=== PATIENT | male | born 1985 | race African-American/Black ===

== ENCOUNTER → 2023-04-10 09:42 | Outpatient (BNVA) | payer MEDICAID, SELFPAY | PROVIDERS: PCP Internal Medicine; Visit Provider Nurse Practitioner Family | DX: J45.909 Unspecified asthma, uncomplicated (principal); G47.33 Obstructive sleep apnea (adult) (pediatric); R40.0 Somnolence; R06.09 Other forms of dyspnea; E66.01 Morbid (severe) obesity due to excess calories; Z68.44 Body mass index [BMI] 60.0-69.9, adult | CPT/HCPCS: 94618; 99202 ==

== ENCOUNTER → 2023-05-08 11:17 | Outpatient (REF) | payer MEDICAID, SELFPAY | LOC: HO.SL 11:17 | PROVIDERS: PCP Internal Medicine; Visit Provider Nurse Practitioner Family | DX: G47.33 Obstructive sleep apnea (adult) (pediatric) (principal) | CPT/HCPCS: 95806 ==

== ENCOUNTER → 2023-05-08 11:22 | Outpatient (BNV) | payer MEDICAID, SELFPAY | PROVIDERS: PCP Internal Medicine; Visit Provider Internal Medicine | DX: G47.33 Obstructive sleep apnea (adult) (pediatric) (principal) | CPT/HCPCS: 95806 ==

== ENCOUNTER 2023-05-27 15:37 | Outpatient (AMB) | payer MEDICAID, SELFPAY ==
[2023-05-27 15:47] VITALS: BP 138/82; PULSE 89; BMI 60.7
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
== END 2023-05-27 16:15 | disposition home or self-care (01) ==
PROVIDERS: PCP Internal Medicine; Visit Provider Surgery
DX: S21.101A Unspecified open wound of right front wall of thorax without penetration into thoracic cavity, initial encounter (principal)
CPT/HCPCS: 99203

== ENCOUNTER → 2023-05-27 15:37 | Outpatient (BNVA) | payer MEDICAID, SELFPAY | PROVIDERS: PCP Internal Medicine; Visit Provider Surgery | DX: S21.101A Unspecified open wound of right front wall of thorax without penetration into thoracic cavity, initial encounter (principal); W22.8XXA Striking against or struck by other objects, initial encounter; Y93.9 Activity, unspecified; Y92.9 Unspecified place or not applicable; Y99.8 Other external cause status | CPT/HCPCS: 99202 ==

== ENCOUNTER 2023-05-29 10:52 | Outpatient (AMB) | payer MEDICAID, SELFPAY ==
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
[2023-05-29 11:05] VITALS: BP 130/86; PULSE 82; BMI 60.7
== END 2023-05-29 12:38 | disposition home or self-care (01) ==
LOC: HO.HCSM 10:52
PROVIDERS: PCP Internal Medicine; Referring Provider Internal Medicine; Visit Provider Internal Medicine Cardiovascular Disease
DX: R06.09 Other forms of dyspnea (principal); E66.01 Morbid (severe) obesity due to excess calories; Z68.44 Body mass index [BMI] 60.0-69.9, adult
CPT/HCPCS: 93010; 99204

== ENCOUNTER → 2023-05-29 13:18 | Outpatient (REF) | payer MEDICAID, SELFPAY ==
--- NOTE | 2023-05-29 13:20 | CA_ITS ---
Transthoracic Echocardiogram Patient (Last, First, Middle): Lino Bradley, Gender: Male Date of : 1985 Age: 37 Procedure Date: 05/29/2023 Procedure Type: Transthoracic Echocardiogram Location: OP Height: 172.72 cm Weight: 172.37 kg BSA: 2.68 m2 Heart Rate: 81 bpm BP: 150 / 90 mmHg Isotope Hydrologist: BOBBY Eng MD: Chiara Manriquez FILM SOUND COORDINATOR Planning And Analysis Manager: Vasquez Sutherland MD Symptoms: R06.09 - Other forms of dyspnea Study Quality: Adequate ECG Rhythm: Sinus Conclusions: - 1. Normal LV ejection fraction 55-60% 2. Normal cardiac valvular Doppler 3. Upper limits of normal RV systolic pressure with mildly elevated right atrial pressures 4. No gross pericardial effusion Findings Left Ventricle Normal left ventricular size, thickness, and systolic function. The visually estimated ejection fraction is between 55-60%. Regional wall motion abnormalities can not be excluded due to suboptimal endocardial definition. Spectral Doppler is indicative of a normal filling pattern. Right Ventricle The right ventricle was not well visualized. Atria The left atrium is likely dilated. There is lipomatous hypertrophy of the interatrial septum. There is no evidence of interatrial shunt. The right atrium was not well visualized. Aortic Valve The aortic valve structure and function is likely normal. Mitral Valve Likely normal mitral valve structure and function. There is trace mitral valve regurgitation. There is no mitral valve stenosis. Pulmonic Valve The pulmonic valve was not well visualized. Tricuspid Valve Mildly elevated right atrial pressure. There is no evidence of pulmonary hypertension. Great Vessels All visible segments of the aorta are normal in size. The pulmonary artery was not well visualized. Venous The inferior vena cava is mildly dilated and collapses less than 50% with inspiration. Pericardium/Pleural There is no evidence of pericardial effusion. Prior Study Comparison No prior study available for comparison. Measurements 2D Linear Measurements IVSd: 1.02 0.6-0.9/0.6-1.0 cm LVIDd: 6.03 3.9-5.3/4.2-5.9 cm LVIDd Index: 2.25 2.4-3.2/2.2-3.1 cm/m2 LVIDs: 3.59 2.0-3.6 cm LVPWd: 1.03 0.7-1.1 cm LA Diam: 4.00 2.7-3.8/3.0-4.0 cm LAIDs Index: 1.49 1.5-2.3 cm/m2 LV Mass: 383.99 67-162/88-224 g LV Mass Index: 143.28 43-95/49-115 g/m2 LVOT Diam: 2.60 3.0+(-)1.3 cm 2D Systolic Function EF 4C: 55.90 >55% EF 2C: 49.90 >55% Mitral Valve MV Pk E: 0.79 MV PK A: 0.63 MV Decel Time: 276.00 E/A: 1.30 E'Lateral: 9.14 E'Medial: 8.38 E/E' Med: 9.50 E/E' Lat: 8.70 PHT: 81.00 MVA PHT: 2.72 Decel Tillman: 2.87 Aortic Valve AoV Pk Han: 1.17 AoV Mn Han: 0.85 AoV VTI: 0.26 AoV Pk Grad: 5.00 Aov Mn Grad: 3.00 MAGNOLIA Cont.VTI: 3.79 LVOT LVOT Pk Han: 0.90 LVOT Mn Han: 0.67 LVOT VTI: 0.18 LVOT Pk Grad: 3.00 LVOT Mn Grad: 2.00 LVOT Diam: 2.60 LVOT Area: 5.31 Diastolic Function MV Pk E: 0.79 MV Pk A: 0.63 E/A: 1.30 E'Medial: 8.38 E/E' Med: 9.50 E' Laterial: 9.14 E/E' Lat: 8.70 Right Ventricle TAPSE (mm): 30.00 TVS' Han: 13.90 Tricuspid Valve TR Pk Han: 2.62 TR Pk Grad: 27.00 RA Press: 8.00 RVSP: 35.00 Great Vessels Aorta Sinus of Valsalva: 4.10 2.0-3.5 cm Ao Asc: 3.50 2.1-3.4 cm Pulmonary Valve PV Pk Han: 1.14 Peak PV Grad: 5.00 Updated in Other Vendor System with Status of Final Vasquez Sutherland MD electronically signed on 05/30/2023 2:03:58 PM with status of Final
== END ==
LOC: HO.CARD 13:18
PROVIDERS: PCP Internal Medicine; Visit Provider Nurse Practitioner Family
DX: R06.09 Other forms of dyspnea (principal); E66.01 Morbid (severe) obesity due to excess calories; Z68.44 Body mass index [BMI] 60.0-69.9, adult
CPT/HCPCS: 93005; 93306; 99202

== ENCOUNTER → 2023-05-29 13:20 | Outpatient (BNV) | payer MEDICAID, SELFPAY | PROVIDERS: PCP Internal Medicine; Visit Provider Internal Medicine Cardiovascular Disease | DX: R06.09 Other forms of dyspnea (principal) | CPT/HCPCS: 93306 ==

== ENCOUNTER 2023-06-11 13:03 | Outpatient (AMB) | payer MEDICAID, SELFPAY ==
--- NOTE | 2023-06-11 13:11 | MHC.OFFVIS ---
Intake Vital Signs 06/11/23 13:13 Weight 404 lb 8.772 oz BP 140/80 H Blood Pressure Location Rt radial Position Sitting Pulse 87 Pulse Source Pulse Oximeter Pulse Oximetry (%) 91 L Oxygen Delivery Method Room Air Intake Visit Reasons: Hx of PE/ARSHAD Allergies amoxicillin Allergy (Severe, Verified 06/12/23 10:50) Unknown Penicillins Allergy (Severe, Verified 06/12/23 10:50) Anaphylaxis Medication List - Last Reconciled 06/11/23 by Anahi Wilder LPN albuterol sulfate 90 mcg/actuation 2 puffs inhalation Q4-6H PRN budesonide-formoterol 80-4.5 mcg/actuation (Symbicort) 2 puffs inhalation Q12H doxycycline monohydrate 100 mg PO BID HPI Hx of PE/ARSHAD HPI Details Lino is a pleasant 37 year old male, current 1/2 ppd smoker with 10 pack year history, h/o provoked PE (December 2022) d/c eliquis x 1 month and BMI of 60. He continues to report he has not been back to baseline since the PE. He reports shortness of breath with minimal exertion, decreased activity, intermittent productive cough and occasional wheeze. At the last visit, he was prescribed symbicort which he reports improvements in dyspnea but often forgets to take the second dose. Will attempt to send in Breo for improved compliance. He was evaluated by cardiology recently with no significant findings from echo. Full report below. Today he presents to review PFT and sleep study results. [facility] Medical History DVT (deep venous thrombosis) Morbid obesity Pulmonary embolism Surgical History History of surgery on lower extremity Family History Mother No problems noted. Father Stroke Heart attack Social History Alcohol intake: current Alcohol intake frequency: holidays/special occasions only Patient Tobacco Use Status: Current everyday Tobacco user Tobacco use type: Cigarette Cigarette Packs Per Day: 0.5 Cigarettes Per Day: 10 Years Smoked: 25 +/- Review of Systems Const Denies chills, Reports daytime sleepiness, Reports difficulty sleeping, Denies excessive sweating, Denies fever(s), Denies headache(s), Denies night sweats and Reports snoring Eyes Denies dry eyes, Denies irritation and Denies itchy eyes ENT Reports Normal hearing present, Denies headache(s), Denies nasal congestion, Denies nasal discharge, Denies post nasal drip and Denies sore throat Card Denies chest pain, Denies chest pain at rest, Denies chest pain with activity, Denies leg edema, Reports dyspnea and Reports dyspnea on exertion Resp Denies chest congestion, Reports cough, Denies hemoptysis, Denies excessive phlegm production, Denies pain on inspiration, Denies pain with cough, Reports dyspnea, Reports dyspnea on exertion, Reports snoring and Reports wheezing Musc Denies myalgias Neuro Reports Normal hearing present and Denies headache(s) Endo Denies excessive sweating Hussain/Lymph Denies lymphadenopathy Aller/Immun Denies itchy eyes, Denies seasonal rhinorrhea and Reports wheezing Physical Exam Vital Signs: Last Vital Signs Pulse 87 06/11/23 13:13 BP 140/80 H 06/11/23 13:13 Pulse Ox 91 L 06/11/23 13:13 Oxygen Delivery Method Room Air 06/11/23 13:13 Const General: cooperative, comfortable, no acute distress, well developed and alert Nutritional Appearance: obese morbidly obese Orientation/consciousness: patient oriented x3 Limitations: no limitations HEENT Head: Yes normal to inspection, Yes normocephalic and Yes atraumatic Ears: hearing grossly normal bilaterally and external ears normal Eyes General: appearance normal, both eyes and all related structures Eyelids: Yes eyelids normal Sclerae: sclerae normal EOM: EOMs intact bilaterally Neck Neck: Yes normal visual inspection and Yes no lymphadenopathy Lymphatic: no lymphadenopathy noted Chest Chest palpation & inspection: normal inspection of the chest Resp Effort & Inspection: normal respiratory effort, able to speak in complete sentences, no audible wheezes, no cough, no stridor, not tachypneic, no tripod positioning and no use of accessory muscles Auscultation: clear to auscultation bilaterally Cardio Jugular venous distension: no JVD Rate: regular rate Rhythm: regular rhythm Skin Other: warm, dry General skin exam: no rashes or lesions noted Neuro General: patient oriented x3 Cranial nerves: Yes Normal hearing present Cognition (Neuro): normal cognition Gait exam (Neuro): Normal gait present Extrem General: Yes normal to inspection, Yes capillary refill normal, Yes no clubbing, cyanosis or edema and Yes no pedal edema Psych Appearance: grossly normal and well kempt Speech and movement: Normal speech and movement present and Clear speech present Affect: normal affect Attitude: cooperative Thought process: Normal thought process present Thought content: Normal thought content present Insight: Good insight present (Psych) Judgement: Good judgement present (Psych) Office Procedures 6 Minute Walk Time:: 13:30 SPO2 % at rest: 95 Pulse at rest: 71 SPO2 % during excercise: 87 Pulse during excercise: 106 SPO2 % after excercise: 94 Pulse after excercise: 98 Distance in yards walked: 150 Ines Score: 5 Performance Observations:: Lino walked on level ground without assistance, he walked on room air for 3 mins before his SPO2 decreased to 87%, O2 started at 1 lpm and with a brief rest his SPO2 increased to 94%. He completed the walk on 1 lpm maintaining his SPO2 at 94%. [id number] - 6 Minute Walk Results Reviewed Results Reviewed: [address] [address] Cardiology Report Signed Patient: Lino Bradley MR#: [id number] : 1985 Acct:[id number] Age/Sex: 37 / M ADM Date: 05/29/23 Loc: .[facility] Ordering Physician: Chiara Manriquez NP Date of Service: 05/29/23 Procedure(s): CA echo transthoracic complete Accession Number(s): cc: Chiara Manriquez NP~ ? Transthoracic Echocardiogram Patient (Last, First, Middle): Lino Bradley, Gender:? Male Patient ID:? ? ? [id number] Date of : ? 1985 Age: ? 37 Procedure Date:? 05/29/2023 Procedure Type:? Transthoracic Echocardiogram Location:? OP Height:? 172.72 cm? Weight: ? 172.37 kg BSA: ? 2.68 m2? Heart Rate: ? ? 81 bpm BP:? 150 / 90 mmHg Forest Fire Management Officer: ? ? [place] Referring MD:? ? Chiara Manriquez NP Road Consultant:? ? Vasquez Sutherland MD Symptoms:? R06.09 - Other forms of dyspnea Study Quality: ? Adequate ECG Rhythm:? ? ? Sinus ?? ? Conclusions: - 1.? Normal LV ejection fraction 55-60% ? 2.? Normal cardiac valvular Doppler? 3.? Upper limits of normal RV systolic pressure with mildly? ? ? elevated right atrial pressures? 4.? No gross pericardial effusion? Findings Left Ventricle Normal left ventricular size, thickness, and systolic function. The visually estimated ejection fraction is between 55-60%.? Regional wall motion abnormalities can not be excluded due to suboptimal endocardial definition. Spectral Doppler is indicative of a normal filling pattern. Right Ventricle The right ventricle was not well visualized. Atria The left atrium is likely dilated.? There is lipomatous hypertrophy of the interatrial septum.? There is no evidence of interatrial shunt.? The right atrium was not well visualized. Aortic Valve The aortic valve structure and function is likely normal. Mitral Valve Likely normal mitral valve structure and function.? There is trace mitral valve regurgitation.? There is no mitral valve stenosis. Pulmonic Valve The pulmonic valve was not well visualized. Tricuspid Valve Mildly elevated right atrial pressure.? There is no evidence of pulmonary hypertension. Great Vessels All visible segments of the aorta are normal in size.? The pulmonary artery was not well visualized. Venous The inferior vena cava is mildly dilated and collapses less than 50% with inspiration. Pericardium/Pleural There is no evidence of pericardial effusion. Prior Study Comparison No prior study available for comparison. ? Measurements 2D Linear Measurements IVSd: ? 1.02? 0.6-0.9/0.6-1.0 cm LVIDd:? 6.03? 3.9-5.3/4.2-5.9 cm LVIDd Index:? 2.25? 2.4-3.2/2.2-3.1 cm/m2 LVIDs:? 3.59? 2.0-3.6 cm LVPWd:? 1.03? 0.7-1.1 cm LA Diam:? 4.00? 2.7-3.8/3.0-4.0 cm LAIDs Index:? 1.49? 1.5-2.3 cm/m2 LV Mass:? 383.99? 67-162/88-224 g LV Mass Index:? ? ? 143.28? 43-95/49-115 g/m2 LVOT Diam:? 2.60 ? 3.0+(-)1.3 cm ? 2D Systolic Function EF 4C:? 55.90 ? >55% EF 2C:? 49.90 ? >55% ?? Mitral Valve MV Pk E:? 0.79 MV PK A:? 0.63 MV Decel Time:? ? ? 276.00 E/A:? 1.30 E'Lateral:? 9.14 E'Medial: ? 8.38 E/E' Med: ? 9.50 E/E' Lat: ? 8.70 PHT:? 81.00 MVA PHT:? 2.72 Decel Centre:? 2.87 ?? Aortic Valve AoV Pk Han: ? 1.17 AoV Mn Han: ? 0.85 AoV VTI:? 0.26 AoV Pk Grad:? 5.00 Aov Mn Grad:? 3.00 MAGNOLIA Cont.VTI: ? ? ? 3.79 ?LVOT LVOT Pk Han:? 0.90 LVOT Mn Han:? 0.67 LVOT VTI: ? 0.18 LVOT Pk Grad: ? ? ? 3.00 LVOT Mn Grad: ? ? ? 2.00 LVOT Diam:? 2.60 LVOT Area:? 5.31 ? Diastolic Function MV Pk E:? 0.79 MV Pk A:? 0.63 E/A:? 1.30 E'Medial: ? 8.38 E/E' Med: ? 9.50 E' Laterial:? 9.14 E/E' Lat: ? 8.70 ? Right Ventricle TAPSE (mm): ? 30.00 TVS' Han: ? 13.90 ? Tricuspid Valve TR Pk Han:? 2.62 TR Pk Grad: ? 27.00 RA Press: ? 8.00 RVSP: ? 35.00 ?? Great Vessels Aorta Sinus of Valsalva:? 4.10? 2.0-3.5 cm Ao Asc: ? 3.50? 2.1-3.4 cm ? Pulmonary Valve PV Pk Han:? 1.14 Peak PV Grad: ? ? ? 5.00 Updated in Other Vendor System with Status of Final Vasquez Sutherland MD? electronically signed on 05/30/2023 2:03:58 PM with status of Final Assessment & Plan Assessment & Plan (1) Obstructive sleep apnea: Code(s): G47.33 - Obstructive sleep apnea (adult) (pediatric) (2) Morbid obesity with BMI of 60.0-69.9, adult: Code(s): E66.01 - Morbid (severe) obesity due to excess calories; Z68.44 - Body mass index [BMI] 60.0-69.9, adult (3) Pulmonary embolism: Code(s): I26.99 - Other pulmonary embolism without acute cor pulmonale (4) Nocturnal hypoxemia: Code(s): G47.34 - Idiopathic sleep related nonobstructive alveolar hypoventilation Plan Reviewed sleep study results with patient which revealed moderate obstructive sleep apnea, with an AHI of 16 and nocturnal hypoxia for majority of the study. Since patient is quite symptomatic, will start CPAP therapy and send for overnight oximetry after using for 2 months. Will send in prescription for APAP mode and pressure settings of 8-20 cm with close monitoring for compliance and benefits. Sleep hygiene education reviewed. He is aware if there are any issues with the mask or CPAP machine, he will call the office. 6MWT test performed and at this time patient qualifies for 1L of oxygen with exertion. Will send prescription. Patient also with history of PE and now has been off of anticoagulation for one month. Concern for chronic thromboembolism given increased right sided pressures on echo. Will send for V/Q scan. Patient was supposed to have PFT performed, but unfortunately missed his appointment. Will reschedule this. Again discussed importance of weight loss and smoking cessation. All questions were answered and patient is in agreement of plan. Will follow up in 4 weeks. Orders: Orders NM pul vent and perfuse 06/11/23 I26.99 - Other pulmonary embolism without acute cor pulmonale AMB 6 minute walk 06/11/23 J45.909 - Unspecified asthma, uncomplicated Medications: New fluticasone furoate-vilanterol 100-25 mcg/dose (Breo Ellipta) 1 inh inhalation DAILY 60 ea 3RF nicotine (Nicotrol) 1 inh inhalation Q2-4H PRN 168 ea 0RF nicotine cravings Coding Level of Care Code Est Pt Level 4 (19950) Diagnoses Obstructive sleep apnea G47.33 Morbid obesity with BMI of 60.0-69.9, adult E66.01; Z68.44 Pulmonary embolism I26.99 Nocturnal hypoxemia G47.34 CPT Codes Coding ([id number])
[2023-06-11 13:13] VITALS: BP 140/80; PULSE 87; O2SAT 91
[2023-06-11 15:22] VITALS: PULSE 71; O2SAT 95
== END 2023-06-11 13:49 | disposition home or self-care (01) ==
PROVIDERS: PCP Internal Medicine; Visit Provider Nurse Practitioner Family
DX: J45.909 Unspecified asthma, uncomplicated (principal)
CPT/HCPCS: 94618; 99214

== ENCOUNTER → 2023-06-11 13:03 | Outpatient (BNVA) | payer MEDICAID, SELFPAY | PROVIDERS: PCP Internal Medicine; Visit Provider Nurse Practitioner Family | DX: G47.33 Obstructive sleep apnea (adult) (pediatric) (principal); I26.99 Other pulmonary embolism without acute cor pulmonale; G47.34 Idiopathic sleep related nonobstructive alveolar hypoventilation; E66.01 Morbid (severe) obesity due to excess calories; Z68.44 Body mass index [BMI] 60.0-69.9, adult | CPT/HCPCS: 94618; 99212 ==

== ENCOUNTER 2023-06-12 10:38 | Outpatient (AMB) | payer MEDICAID, SELFPAY ==
--- NOTE | 2023-06-12 10:40 | A.OFFVIS_ITS ---
Intake Intake Visit Reasons: Biopsy of wound of chest wall Intake Note: This patient presents for in-office procedure for biopsy of wound on the chest wall. Patient c/o; reports no changes at this time. Equal Employment Opportunity Officer Required: No Accompanied by: Self / Same As Patient Allergies amoxicillin Allergy (Severe, Verified 06/12/23 10:50) Unknown Penicillins Allergy (Severe, Verified 06/12/23 10:50) Anaphylaxis Medication List - Last Reconciled 06/12/23 by Garfield Ramos MD albuterol sulfate 90 mcg/actuation 2 puffs inhalation Q4-6H PRN budesonide-formoterol 80-4.5 mcg/actuation (Symbicort) 2 puffs inhalation Q12H doxycycline monohydrate 100 mg PO BID HPI Biopsy of wound of chest wall HPI Details 37-year-old male here for a biopsy of a chronic nonhealing wound on the chest wall. [facility] Medical History DVT (deep venous thrombosis) Morbid obesity Pulmonary embolism Surgical History History of surgery on lower extremity Family History Mother No problems noted. Father Stroke Heart attack Social History Alcohol intake: current Alcohol intake frequency: holidays/special occasions only Patient Tobacco Use Status: Current everyday Tobacco user Tobacco use type: Cigarette Cigarette Packs Per Day: 0.5 Cigarettes Per Day: 10 Years Smoked: 25 +/- Review of Systems Const Denies chills and Denies fever(s) Card Denies chest pain, Denies dyspnea and Denies dyspnea on exertion Resp Denies cough, Denies dyspnea and Denies dyspnea on exertion GI Denies hematochezia and Denies change in bowel habits Denies hematuria and Denies difficulty urinating Musc Denies back pain and Denies limited range of motion Neuro Denies focal weakness and Denies convulsions Psych Denies depression and Denies mood swings Physical Exam Const Other: Morbidly obese General: comfortable and no acute distress Orientation/consciousness: patient oriented x3 Neck Neck: Yes no lymphadenopathy Chest Other: Right chest wall with an open wound measuring 9 x 3 cm, subcutaneous area exposed Resp Auscultation: clear to auscultation bilaterally Cardio Rhythm: regular rhythm GI Palpation (GI): Soft to palpation, nontender and no guarding Neuro General: patient oriented x3 Assessment & Plan Assessment & Plan (1) Unspecified open wound of right front wall of thorax without penetration into thoracic cavity, initial encounter: Code(s): S21.101A - Unspecified open wound of right front wall of thorax without penetration into thoracic cavity, initial encounter Plan: Biopsies were done using sharp scissors. The area was prepped and draped. I took samples of the wound surface using fine scissors with forceps Cultures were also taken. I will see him in the office in about 2 weeks to review results. In the meantime I have instructed him to do wet to dry dressing changes daily. I had given him samples of gauze and normal saline. I have advised him on smoking cessation. Orders: Orders Routine Culture w Gram Stain Today S21.101A - Unspecified open wound of right front wall of thorax without penetration into thoracic cavity, initial encounter Surgical Today S21.101A - Unspecified open wound of right front wall of thorax without penetration into thoracic cavity, initial encounter Coding Level of Care Code Est Pt Level 3 (71646) Diagnoses Unspecified open wound of right front wall of thorax without penetration into thoracic cavity, initial encounter S21.101A
== END 2023-06-12 11:05 | disposition home or self-care (01) ==
PROVIDERS: PCP Internal Medicine; Visit Provider Surgery
DX: S21.101A Unspecified open wound of right front wall of thorax without penetration into thoracic cavity, initial encounter (principal)
CPT/HCPCS: 99213

== ENCOUNTER 2023-06-12 10:38 | Outpatient (REF) | payer MEDICAID, SELFPAY | END 2023-06-12 10:39 | disposition home or self-care (01) | LOC: HO.LNP 10:38 | PROVIDERS: PCP Internal Medicine; Visit Provider Surgery | DX: S21.101A Unspecified open wound of right front wall of thorax without penetration into thoracic cavity, initial encounter (principal); X58.XXXA Exposure to other specified factors, initial encounter; Y93.9 Activity, unspecified; Y92.9 Unspecified place or not applicable; Y99.9 Unspecified external cause status; Z79.899 Other long term (current) drug therapy | CPT/HCPCS: 87070; 87205; 88304; 99212 ==

== ENCOUNTER 2023-06-19 09:58 | Outpatient (AMB) | payer MEDICAID, SELFPAY ==
--- NOTE | 2023-06-19 10:00 | A.OFFVIS_ITS ---
Intake Intake Visit Reasons: Follow up Biopsy of wound of chest wall Intake Note: This patient presents for a follow-up assessment status post biopsy of wound on chest wall. Patient c/o; reports no changes or concerns at this time. Event Marketing Coordinator Required: No Accompanied by: Self / Same As Patient Allergies amoxicillin Allergy (Severe, Verified 06/19/23 10:04) Unknown Penicillins Allergy (Severe, Verified 06/19/23 10:04) Anaphylaxis Medication List - Last Reconciled 06/19/23 by Garfield Ramos MD albuterol sulfate 90 mcg/actuation 2 puffs inhalation Q4-6H PRN budesonide-formoterol 80-4.5 mcg/actuation (Symbicort) 2 puffs inhalation Q12H doxycycline monohydrate 100 mg PO BID fluticasone furoate-vilanterol 100-25 mcg/dose (Breo Ellipta) 1 inh inhalation DAILY nicotine (Nicotrol) 1 inh inhalation Q2-4H PRN HPI Follow up Biopsy of wound of chest wall HPI Details He is here for follow-up because of a nonhealing wound on that his right chest wall. The started after he had ingrown hair he says which he open up himself with a knife. He has this nonhealing ulcer and I had done a biopsy and cultures last 06/12/2023. He denies any new complaints. [facility] Medical History DVT (deep venous thrombosis) Morbid obesity Pulmonary embolism Surgical History History of surgery on lower extremity Family History Mother No problems noted. Father Stroke Heart attack Social History Alcohol intake: current Alcohol intake frequency: holidays/special occasions only Patient Tobacco Use Status: Current everyday Tobacco user Tobacco use type: Cigarette Cigarette Packs Per Day: 0.5 Cigarettes Per Day: 10 Years Smoked: 25 +/- Review of Systems Const Denies chills and Denies fever(s) Card Denies chest pain, Denies dyspnea and Reports dyspnea on exertion Resp Denies cough, Denies dyspnea and Reports dyspnea on exertion GI Denies hematochezia and Denies change in bowel habits Denies hematuria and Denies difficulty urinating Musc Denies back pain and Denies limited range of motion Neuro Denies focal weakness and Denies convulsions Psych Denies depression and Denies mood swings Physical Exam Const Other: Morbidly obese General: comfortable and no acute distress Chest Other: Open wound on the chest wall on the right side, about 8.2 cm by 2.9 cm, with good granulation on exposed subcutaneous layer, no discharge Resp Effort & Inspection: normal respiratory effort Cardio Rate: regular rate Assessment & Plan Assessment & Plan (1) Unspecified open wound of right front wall of thorax without penetration into thoracic cavity, initial encounter: Code(s): S21.101A - Unspecified open wound of right front wall of thorax without penetration into thoracic cavity, initial encounter Plan: He has had this nonhealing wound on the right chest wall. Biopsies of this shows granulation tissue and fibrosis without any evidence of malignancy. His answers were on negative as well for any bacteria I therefore changes dressings. I applied wet to dry and I had instructed him to continue to do wet to dry dressing changes at least once or twice a day. I will see him again in the office in about a month for another wound check. Coding Level of Care Code Est Pt Level 3 (36417) Diagnoses Unspecified open wound of right front wall of thorax without penetration into thoracic cavity, initial encounter S21.101A
== END 2023-06-19 10:17 | disposition home or self-care (01) ==
PROVIDERS: PCP Internal Medicine; Visit Provider Surgery
DX: S21.101A Unspecified open wound of right front wall of thorax without penetration into thoracic cavity, initial encounter (principal)
CPT/HCPCS: 99213

== ENCOUNTER → 2023-06-19 09:58 | Outpatient (BNVA) | payer MEDICAID, SELFPAY | PROVIDERS: PCP Internal Medicine; Visit Provider Surgery | DX: S21.101D Unspecified open wound of right front wall of thorax without penetration into thoracic cavity, subsequent encounter (principal) | CPT/HCPCS: 99212 ==

== ENCOUNTER → 2023-06-25 11:10 | Outpatient (REF) | payer MEDICAID, SELFPAY ==
--- NOTE | ~2023-06-25 | XR_ITS ---
EXAMINATION: XR CHEST CLINICAL INFORMATION: Pulmonary embolism without cor pulmonale COMPARISON: None available. TECHNIQUE: 2 views of the chest were obtained. FINDINGS: Heart size within normal limits. Opacity identified adjacent to the right heart border. No vascular congestion. No effusions. Bony structures are intact. XR/XR chest 2V IMPRESSION: Opacity adjacent to right heart border, question middle lobe pneumonia. Short-term radiographic follow-up recommended in several weeks time. If no resolution, CT would be indicated.
--- NOTE | ~2023-06-25 | NM_ITS ---
PULMONARY PERFUSION ONLY STUDY: CLINICAL INDICATION: Other pulmonary embolism without acute cor pulmonale. PROCEDURE: Following the intravenous administration of 4.0 millicuries technetium 99m MAA, images of the chest were obtained in multiple projections using a gamma scintiphotographic camera. COMPARISON: Chest radiograph done earlier today. PERFUSION IMAGES: No segmental perfusion defects or other perfusion abnormalities are noted. NM/NM pul perfusion IMPRESSION: Based on perfusion only modified PIOPED 2 criteria, pulmonary embolism is absent.
== END ==
LOC: HO.NUCMED 11:10
PROVIDERS: PCP Internal Medicine; Visit Provider Nurse Practitioner Family
DX: I26.99 Other pulmonary embolism without acute cor pulmonale (principal)
CPT/HCPCS: 71046; 78580; A9540

== ENCOUNTER 2023-08-20 10:18 | Outpatient (AMB) | payer MEDICAID, SELFPAY ==
[2023-08-20 10:28] VITALS: BP 146/78; PULSE 112; O2SAT 84
--- NOTE | 2023-08-20 10:28 | A.OFFVIS_ITS ---
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 Coloring Machine Operator: Coloring Machine Operator offered & declined Accompanied by: Self / Same As Patient Allergies amoxicillin Allergy (Severe, Verified 08/20/23 10:36) Unknown Penicillins Allergy (Severe, Verified 08/20/23 10:36) Anaphylaxis Medication List - Last Reconciled 08/20/23 by Dominique Santana LPN albuterol sulfate 90 mcg/actuation 2 puffs inhalation Q4-6H PRN budesonide-formoterol 80-4.5 mcg/actuation (Symbicort) 2 puffs inhalation Q12H fluticasone furoate-vilanterol 100-25 mcg/dose (Breo Ellipta) 1 inh inhalation DAILY nicotine (Nicotrol) 1 inh inhalation Q2-4H PRN HPI ARSHAD HPI Details Lino is a pleasant 38 year old male, current 1/2 ppd smoker with 10 pack year history, BMI 60, h/o provoked PE (December 2022), CRUZITO recently on CPAP therapy and on supplemental 2L of oxygen. Cardiology evaluation was unremarkable. He reports he has not been back to baseline since the PE. He continues to report shortness of breath with minimal exertion, decreased activity, intermittent productive cough and occasional wheeze. He has been using symbicort 80-4.5mcg with suboptimal improvements and continues to use albuterol frequently. At the last visit, he was sent for echo, CXR and VQ scan, but unfortunately has not followed up until today. [facility] Medical History (Updated 08/20/23 @ 21:31 by Chiara Manriquez NP) History of pulmonary embolism (~12/2022) Pulmonary hypertension Asthma Obstructive sleep apnea Nocturnal hypoxemia Nicotine dependence, cigarettes, uncomplicated Morbid obesity Surgical History (Updated 08/20/23 @ 13:19 by Tabitha Maria PA-C) History of cholecystectomy History of surgery on lower extremity Family History Mother No problems noted. Father Stroke Heart attack Social History (Updated 08/20/23 @ 10:39 by Dominique Santana LPN) Alcohol intake: current Alcohol intake frequency: holidays/special occasions only Patient Tobacco Use Status: Current everyday Tobacco user Tobacco use type: Cigarette Cigarette Packs Per Day: 0.5 Cigarettes Per Day: 10 Years Smoked: 25 +/- Smoked in Last 30 Days: Yes Review of Systems Const Denies chills, Reports daytime sleepiness, Reports difficulty sleeping, Denies excessive sweating, Denies fever(s), Denies headache(s), Denies night sweats and Reports snoring Eyes Denies dry eyes, Denies irritation and Denies itchy eyes ENT Reports Normal hearing present, Denies headache(s), Denies nasal congestion, Denies nasal discharge, Denies post nasal drip and Denies sore throat Card Denies chest pain, Denies chest pain at rest, Denies chest pain with activity, Denies leg edema, Reports dyspnea and Reports dyspnea on exertion Resp Denies chest congestion, Reports cough, Denies hemoptysis, Denies excessive phlegm production, Denies pain on inspiration, Denies pain with cough, Reports dyspnea, Reports dyspnea on exertion, Reports snoring and Reports wheezing Musc Denies myalgias Neuro Reports Normal hearing present and Denies headache(s) Endo Denies excessive sweating Hussain/Lymph Denies lymphadenopathy Aller/Immun Denies itchy eyes, Denies seasonal rhinorrhea and Reports wheezing Physical Exam Vital Signs: Last Vital Signs Pulse 112 H 08/20/23 10:28 BP 146/78 H 08/20/23 10:28 Pulse Ox 84 L 08/20/23 10:28 Oxygen Delivery Method Room Air 08/20/23 10:28 Const General: cooperative, no acute distress, well developed and alert Nutritional Appearance: obese morbidly obese Orientation/consciousness: patient oriented x3 Limitations: no limitations HEENT Head: Yes normal to inspection, Yes normocephalic and Yes atraumatic Ears: hearing grossly normal bilaterally and external ears normal Eyes General: appearance normal, both eyes and all related structures Eyelids: Yes eyelids normal Sclerae: sclerae normal EOM: EOMs intact bilaterally Neck Neck: Yes normal visual inspection and Yes no lymphadenopathy Lymphatic: no lymphadenopathy noted Chest Chest palpation & inspection: normal inspection of the chest Resp Other: diminished lung sounds Effort & Inspection: normal respiratory effort, able to speak in complete sentences, no audible wheezes, no cough, no stridor, not tachypneic, no tripod positioning and no use of accessory muscles Auscultation: no crackles, no rales, no rhonchi and no wheezes Cardio Jugular venous distension: no JVD Rate: regular rate Rhythm: regular rhythm Skin Other: multiple open erythematous wounds, two on scalp, one of left face and scattered on abdomen. advised to follow up with wound care/PCP. Neuro General: patient oriented x3 Cranial nerves: Yes Normal hearing present Cognition (Neuro): normal cognition Gait exam (Neuro): Normal gait present Extrem General: Yes normal to inspection, Yes capillary refill normal, Yes no clubbing, cyanosis or edema and Yes no pedal edema Psych Appearance: grossly normal and well kempt Speech and movement: Normal speech and movement present and Clear speech present Affect: normal affect Attitude: cooperative Thought process: Normal thought process present Thought content: Normal thought content present Insight: Good insight present (Psych) Judgement: Good judgement present (Psych) Results Reviewed Results Reviewed: [place] [address] Nuclear Medicine Report Signed Patient: Lino Bradley MR#: [id number] : 1985 Acct:[id number] Age/Sex: 37 / M ADM Date: 06/25/23 Loc: [facility] Attending Dr: Chiara Manriquez NP Ordering Physician: Chiara Manriquez NP Date of Service: 06/25/23 Procedure(s): NM pul perfusion Accession Number(s): [id number] cc: Kacie Caceres MD; Chiara Manriquez NP~ PULMONARY PERFUSION ONLY STUDY: CLINICAL INDICATION: Other pulmonary embolism without acute cor pulmonale. PROCEDURE: Following the intravenous administration of 4.0 millicuries technetium 99m MAA, images of the chest were obtained in multiple projections using a gamma scintiphotographic camera. COMPARISON: Chest radiograph done earlier today. PERFUSION IMAGES: No segmental perfusion defects or other perfusion abnormalities are noted. NM/NM pul perfusion IMPRESSION: Based on perfusion only modified PIOPED 2 criteria, pulmonary embolism is absent. [address] [address] Cardiology Report Signed Patient: Lino Bradley MR#: [id number] : 1985 Acct:[id number] Age/Sex: 37 / M ADM Date: 05/29/23 Loc: [facility] Attending Dr: Chiara Manriquez NP Ordering Physician: Chiara Manriquez NP Date of Service: 05/29/23 Procedure(s): CA echo transthoracic complete Accession Number(s): cc: Chiara Manriquez NP~ Transthoracic Echocardiogram Patient (Last, First, Middle): Lino Bradley, Gender: Male Date of : 1985 Age: 37 Procedure Date: 05/29/2023 Procedure Type: Transthoracic Echocardiogram Location: OP Height: 172.72 cm Weight: 172.37 kg BSA: 2.68 m2 Heart Rate: 81 bpm BP: 150 / 90 mmHg Poultry Farm Manager: BOBBY Eng MD: Chiara Manriquez NP Guyline Operator: Vasquez Sutherland MD Symptoms: R06.09 - Other forms of dyspnea Study Quality: Adequate ECG Rhythm: Sinus Conclusions: - 1. Normal LV ejection fraction 55-60% 2. Normal cardiac valvular Doppler 3. Upper limits of normal RV systolic pressure with mildly elevated right atrial pressures 4. No gross pericardial effusion Findings Left Ventricle Normal left ventricular size, thickness, and systolic function. The visually estimated ejection fraction is between 55-60%. Regional wall motion abnormalities can not be excluded due to suboptimal endocardial definition. Spectral Doppler is indicative of a normal filling pattern. Right Ventricle The right ventricle was not well visualized. Atria The left atrium is likely dilated. There is lipomatous hypertrophy of the interatrial septum. There is no evidence of interatrial shunt. The right atrium was not well visualized. Aortic Valve The aortic valve structure and function is likely normal. Mitral Valve Likely normal mitral valve structure and function. There is trace mitral valve regurgitation. There is no mitral valve stenosis. Pulmonic Valve The pulmonic valve was not well visualized. Tricuspid Valve Mildly elevated right atrial pressure. There is no evidence of pulmonary hypertension. Great Vessels All visible segments of the aorta are normal in size. The pulmonary artery was not well visualized. Venous The inferior vena cava is mildly dilated and collapses less than 50% with inspiration. Pericardium/Pleural There is no evidence of pericardial effusion. Prior Study Comparison No prior study available for comparison. Measurements 2D Linear Measurements IVSd: 1.02 0.6-0.9/0.6-1.0 cm LVIDd: 6.03 3.9-5.3/4.2-5.9 cm LVIDd Index: 2.25 2.4-3.2/2.2-3.1 cm/m2 LVIDs: 3.59 2.0-3.6 cm LVPWd: 1.03 0.7-1.1 cm LA Diam: 4.00 2.7-3.8/3.0-4.0 cm LAIDs Index: 1.49 1.5-2.3 cm/m2 LV Mass: 383.99 67-162/88-224 g LV Mass Index: 143.28 43-95/49-115 g/m2 LVOT Diam: 2.60 3.0+(-)1.3 cm 2D Systolic Function EF 4C: 55.90 >55% EF 2C: 49.90 >55% Mitral Valve MV Pk E: 0.79 MV PK A: 0.63 MV Decel Time: 276.00 E/A: 1.30 E'Lateral: 9.14 E'Medial: 8.38 E/E' Med: 9.50 E/E' Lat: 8.70 PHT: 81.00 MVA PHT: 2.72 Decel [place]: 2.87 Aortic Valve AoV Pk Han: 1.17 AoV Mn Han: 0.85 AoV VTI: 0.26 AoV Pk Grad: 5.00 Aov Mn Grad: 3.00 MAGNOLIA Cont.VTI: 3.79 LVOT LVOT Pk Han: 0.90 LVOT Mn Han: 0.67 LVOT VTI: 0.18 LVOT Pk Grad: 3.00 LVOT Mn Grad: 2.00 LVOT Diam: 2.60 LVOT Area: 5.31 Diastolic Function MV Pk E: 0.79 MV Pk A: 0.63 E/A: 1.30 E'Medial: 8.38 E/E' Med: 9.50 E' Laterial: 9.14 E/E' Lat: 8.70 Right Ventricle TAPSE (mm): 30.00 TVS' Han: 13.90 Tricuspid Valve TR Pk Han: 2.62 TR Pk Grad: 27.00 RA Press: 8.00 RVSP: 35.00 Great Vessels Aorta Sinus of Valsalva: 4.10 2.0-3.5 cm Ao Asc: 3.50 2.1-3.4 cm Pulmonary Valve PV Pk Han: 1.14 Peak PV Grad: 5.[address] [address] XRay Report Signed Patient: Lino Bradley MR#: [id number] : 1985 Acct:[id number] Age/Sex: 37 / M ADM Date: 06/25/23 Loc: [facility] Attending Dr: Chiara Manriquez NP Ordering Physician: Chiara Manriquez NP Date of Service: 06/25/23 Procedure(s): XR chest 2V Accession Number(s): [id number] cc: Kacie Caceres MD; Chiara Manriquez NP~ EXAMINATION: XR CHEST CLINICAL INFORMATION: Pulmonary embolism without cor pulmonale COMPARISON: None available. TECHNIQUE: 2 views of the chest were obtained. FINDINGS: Heart size within normal limits. Opacity identified adjacent to the right heart border. No vascular congestion. No effusions. Bony structures are intact. XR/XR chest 2V IMPRESSION: Opacity adjacent to right heart border, question middle lobe pneumonia. Short-term radiographic follow-up recommended in several weeks time. If no resolution, CT would be indicated. Assessment & Plan Assessment & Plan (1) Asthma: Code(s): J45.909 - Unspecified asthma, uncomplicated (2) Obstructive sleep apnea: Code(s): G47.33 - Obstructive sleep apnea (adult) (pediatric) (3) Pulmonary hypertension: Comment: (dilated main pulmonary artery 4.5cm on 12/14/22 Chest CTA) Code(s): I27.20 - Pulmonary hypertension, unspecified (4) History of pulmonary embolism: Onset Date: ~12/2022 Comment: (PE in RLL - dx 12/2022) Code(s): Z86.711 - Personal history of pulmonary embolism (5) Nocturnal hypoxemia: Code(s): G47.34 - Idiopathic sleep related nonobstructive alveolar hypoventilation (6) Morbid obesity with BMI of 60.0-69.9, adult: Code(s): E66.01 - Morbid (severe) obesity due to excess calories; Z68.44 - Body mass index [BMI] 60.0-69.9, adult (7) Nicotine dependence, cigarettes, uncomplicated: Code(s): F17.210 - Nicotine dependence, cigarettes, uncomplicated Plan Lino's symptoms are multifactorial with major contribution from obesity and decondtioning etiologies. He was sent for PFT but unfortunately missed this appointment. Will resubmit order and increase symbicort dose. There was concern for chronic thromboembolism given increased right sided pressures on echo and he was sent for VQ scan. Reviewed VQ scan which was negative for PE. Patient was also sent for CXR and had rescheduled appointment so reviewed today which revealed possible opacity of RML. Given patient's abnormal CXR and continued hypoxia, will send for chest CT. At the last visit, CPAP therapy was ordered and this was started two weeks ago. The delay was related to prior dues owed to [employer]. Prescription was resent to [employer], who supplied CPAP equipment. He reports use but will review compliance report after 4-6 weeks of continuous therapy then send for overnight oximetry. Advised patient to continue to use 2L supplemental oxygen and reviewed importan ce of continued use. He arrived to the appointment without oxygen and oxygen saturation was 84% on room air. He was placed on 2L with quick recovery to 97%. Again discussed importance of compliance of therapies/adherence to appointments as well as weight loss and smoking cessation. All questions were answered and patient is in agreement of plan. Will follow up in 4-6 weeks to review chest CT results. Orders: Orders CT chest wo IV con Today R06.09 - Other forms of dyspnea, R93.89 - Abnormal findings on diagnostic imaging of other specified body structures PFT pulmonary function test Today J45.909 - Unspecified asthma, uncomplicated, R06.09 - Other forms of dyspnea Medications: New budesonide-formoterol 160-4.5 mcg/actuation (Symbicort) 2 puffs inhalation Q12H 10.2 grams 6RF Refilled albuterol sulfate 90 mcg/actuation 2 puffs inhalation Q4-6H PRN 1 ea 3RF shortness of breath or wheezing Coding Level of Care Code Est Pt Level 5 (28535) Diagnoses Asthma J45.909 Obstructive sleep apnea G47.33 Pulmonary hypertension I27.20 History of pulmonary embolism Z86.711 Nocturnal hypoxemia G47.34 Morbid obesity with BMI of 60.0-69.9, adult E66.01; Z68.44 Nicotine dependence, cigarettes, uncomplicated F17.210
== END 2023-08-20 11:18 | disposition home or self-care (01) ==
PROVIDERS: PCP Internal Medicine; Visit Provider Nurse Practitioner Family
DX: J45.909 Unspecified asthma, uncomplicated (principal); G47.33 Obstructive sleep apnea (adult) (pediatric); I27.20 Pulmonary hypertension, unspecified; Z86.711 Personal history of pulmonary embolism; G47.34 Idiopathic sleep related nonobstructive alveolar hypoventilation; E66.01 Morbid (severe) obesity due to excess calories; Z68.44 Body mass index [BMI] 60.0-69.9, adult; F17.210 Nicotine dependence, cigarettes, uncomplicated
CPT/HCPCS: 99214

== ENCOUNTER → 2023-08-20 10:18 | Outpatient (BNVA) | payer MEDICAID, SELFPAY | PROVIDERS: PCP Internal Medicine; Visit Provider Nurse Practitioner Family | DX: J45.909 Unspecified asthma, uncomplicated (principal); G47.33 Obstructive sleep apnea (adult) (pediatric); I27.20 Pulmonary hypertension, unspecified; G47.34 Idiopathic sleep related nonobstructive alveolar hypoventilation; E66.01 Morbid (severe) obesity due to excess calories; F17.210 Nicotine dependence, cigarettes, uncomplicated; Z86.711 Personal history of pulmonary embolism; Z68.44 Body mass index [BMI] 60.0-69.9, adult | CPT/HCPCS: 99212 ==

== ENCOUNTER 2023-10-01 09:14 | Outpatient (REF) | payer MEDICAID, SELFPAY ==
--- NOTE | 2023-10-01 10:00 | PFT_ITS ---
Spirometry FVC 67%, FEV1 58%, FEV1 OVER FVC RATIO IS 71 FEF 2570 532% AND MVV 42%. POST BRONCHODILATOR THERAPY THERE IS SIGNIFICANT IMPROVEMENT IN FEV1 AND FEF 03/02/2075. Lung Volumes [] TOTAL LUNG CAPACITY 65% RESIDUAL VOLUME 106% Diffusion Capacity [94%] Methacholine Challenge [] Flow Volume Loops [] MVV [] MIP/MEP(Max inspiratory pressure/Max expiratory pressure) [] 6 Minute Walk Test [] ABG [] Interpretation [MODERATELY SEVERE OBSTRUCTIVE AIRWAY DISORDER, WITH PARTIAL REVERSIBILITY AFTER BRONCHODILATOR THERAPY . THESE FINDINGS SUGGEST ASTHMA/COPD OVERLAP SYNDROME. THERE IS ALSO MILD TO MODERATE DEGREE OF RESTRICTIVE PULMONARY DISORDER. CLINICAL CORRELATION IS RECOMMENDED. MTDD
== END 2023-10-01 09:15 | disposition home or self-care (01) ==
LOC: HO.RESP 09:14
PROVIDERS: PCP Internal Medicine; Visit Provider Nurse Practitioner Family
DX: J45.909 Unspecified asthma, uncomplicated (principal); R06.09 Other forms of dyspnea

== ENCOUNTER 2023-10-02 14:19 | Outpatient (AMB) | payer MEDICAID, SELFPAY ==
[2023-10-02 14:44] VITALS: BP 130/80; PULSE 89; O2SAT 95; BMI 55.1
--- NOTE | 2023-10-02 14:44 | A.OFFVIS_ITS ---
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 Center Medical Specialist: Center Medical Specialist offered & declined Accompanied by: Self / Same As Patient Allergies amoxicillin Allergy (Severe, Verified 10/02/23 14:52) Unknown Penicillins Allergy (Severe, Verified 10/02/23 14:52) Anaphylaxis Medication List - Last Reconciled 10/02/23 by Dominique Santana LPN albuterol sulfate 90 mcg/actuation 2 puffs inhalation Q4-6H PRN budesonide-formoterol 160-4.5 mcg/actuation (Symbicort) 2 puffs inhalation Q12H nicotine (Nicotrol) 1 inh inhalation Q2-4H PRN HPI S/p pft 2 HPI0 Details Lino is a pleasant 38 year old male, current 1/2 ppd smoker with 10 pack year history, BMI 55, h/o provoked PE (December 2022), CRUZITO recently on CPAP therapy. He reports since the last visit, his symptoms have significantly improved and has been using Breo and albuterol MDI. He denies dyspnea or chest tightness. He reports intermittent wheezing that resolves with albuterol use. He recently received his CPAP but has had difficulty with compliance. At the last visit, he was sent for a chest CT, but unfortunately had difficulties with transportation and was not able to make the appointment. Today he presents to review PFT and discuss discontinuing supplemental oxygen. [facility] Medical History (Updated 08/20/23 @ 21:31 by Chiara Manriquez NP) History of pulmonary embolism (~12/2022) Pulmonary hypertension Asthma Obstructive sleep apnea Nocturnal hypoxemia Nicotine dependence, cigarettes, uncomplicated Morbid obesity Surgical History (Updated 08/20/23 @ 13:19 by Tabitha Maria PA-C) History of cholecystectomy History of surgery on lower extremity Family History Mother No problems noted. Father Stroke Heart attack Social History (Updated 10/02/23 @ 14:54 by Dominique Santana LPN) Alcohol intake: current Alcohol intake frequency: holidays/special occasions only Patient Tobacco Use Status: Current everyday Tobacco user Tobacco use type: Cigarette Cigarette Packs Per Day: 0.5 Cigarettes Per Day: 7 Years Smoked: 25 +/- Review of Systems Const Denies chills, Reports daytime sleepiness, Reports difficulty sleeping, Denies excessive sweating, Denies fever(s), Denies headache(s), Denies night sweats and Reports snoring Eyes Denies dry eyes, Denies irritation and Denies itchy eyes ENT Reports Normal hearing present and Denies headache(s) Card Denies chest pain, Denies chest pain at rest, Denies chest pain with activity and Denies leg edema Resp Denies chest congestion, Denies hemoptysis, Denies excessive phlegm production, Denies pain on inspiration, Denies pain with cough and Reports snoring Musc Denies myalgias Neuro Reports Normal hearing present and Denies headache(s) Endo Denies excessive sweating Hussain/Lymph Denies lymphadenopathy Aller/Immun Denies itchy eyes and Denies seasonal rhinorrhea Physical Exam Vital Signs: Last Vital Signs Pulse 89 10/02/23 14:44 BP 130/80 10/02/23 14:44 Pulse Ox 95 10/02/23 14:44 Oxygen Delivery Method Room Air 10/02/23 14:44 BMI result Body Mass Index 55.1 Const General: cooperative, no acute distress, well developed and alert Nutritional Appearance: obese morbidly obese Orientation/consciousness: patient oriented x3 Limitations: no limitations HEENT Head: Yes normal to inspection, Yes normocephalic and Yes atraumatic Ears: hearing grossly normal bilaterally and external ears normal Eyes General: appearance normal, both eyes and all related structures Eyelids: Yes eyelids normal Sclerae: sclerae normal EOM: EOMs intact bilaterally Neck Neck: Yes normal visual inspection and Yes no lymphadenopathy Lymphatic: no lymphadenopathy noted Chest Chest palpation & inspection: normal inspection of the chest Resp Effort & Inspection: normal respiratory effort, able to speak in complete sentences, no audible wheezes, no cough, no stridor, not tachypneic, no tripod positioning and no use of accessory muscles Auscultation: clear to auscultation bilaterally, no crackles, no rales, no rhonchi and no wheezes Cardio Jugular venous distension: no JVD Rate: regular rate Rhythm: regular rhythm Neuro General: patient oriented x3 Cranial nerves: Yes Normal hearing present Cognition (Neuro): normal cognition Gait exam (Neuro): Normal gait present Extrem General: Yes normal to inspection, Yes capillary refill normal, Yes no clubbing, cyanosis or edema and Yes no pedal edema Psych Appearance: grossly normal and well kempt Speech and movement: Normal speech and movement present and Clear speech present Affect: normal affect Attitude: cooperative Thought process: Normal thought process present Thought content: Normal thought content present Insight: Good insight present (Psych) Judgement: Good judgement present (Psych) Office Procedures 6 Minute Walk Time:: 15:03 SPO2 % at rest: 98 Pulse at rest: 83 SPO2 % during excercise: 94 Pulse during excercise: 114 SPO2 % after excercise: 97 Pulse after excercise: 98 Distance in yards walked: 1,000 Ines Score: 5 Performance Observations:: Patient walked unassisted on level ground at a slower pace. Patient was able to maintain O2 saturation greater than 94% with a pulse rate of 114. Patient tires easily but was able to complete the walk. Patient did not require the use of any supplemental O2. [address] - 6 Minute Walk Results Reviewed Results Reviewed: Assessment & Plan Assessment & Plan (1) Asthma: Code(s): J45.909 - Unspecified asthma, uncomplicated (2) Obstructive sleep apnea: Code(s): G47.33 - Obstructive sleep apnea (adult) (pediatric) (3) Pulmonary hypertension: Comment: (dilated main pulmonary artery 4.5cm on 12/14/22 Chest CTA) Code(s): I27.20 - Pulmonary hypertension, unspecified (4) History of pulmonary embolism: Onset Date: ~12/2022 Comment: (PE in RLL - dx 12/2022) Code(s): Z86.711 - Personal history of pulmonary embolism (5) Nocturnal hypoxemia: Code(s): G47.34 - Idiopathic sleep related nonobstructive alveolar hypoventilation (6) Nicotine dependence, cigarettes, uncomplicated: Code(s): F17.210 - Nicotine dependence, cigarettes, uncomplicated Plan Reviewed PFT which revealed a moderate obstructive defect with partial reversibility after bronchodilator, suggestive of asthma COPD overlap syndrome. There was also a moderate restrictive defect likely secondary to obesity. DLCO normal. 6MWT performed and patient did not require supplemental oxygen. Will send order for discontinuation of supplemental oxygen. Advised patient to continue current regimen and discussed importance of adherence. Patient also requesting nebulizer, will send prescription for this. Smoking cessation reviewed. Will reach out to have patient's chest CT rescheduled. All questions were answered and patient is in agreement of plan. Will follow up to review chest CT results or sooner if needed. Orders: Orders 2 AMB 6 minute walk Today J45.909 - Unspecified asthma, uncomplicated Medications: New 2 albuterol sulfate 2.5 mg (3 mL) inhalation Q4-6H PRN 90 mL 3RF shortness of breath or wheezing Coding Level of Care Code Est Pt Level 4 (70846) Diagnoses Asthma J45.909 Obstructive sleep apnea G47.33 Pulmonary hypertension I27.20 History of pulmonary embolism Z86.711 Nocturnal hypoxemia G47.34 Nicotine dependence, cigarettes, uncomplicated F17.210 CPT Codes Coding ([id number])
[2023-10-02 15:19] VITALS: PULSE 83; O2SAT 98
== END 2023-10-02 15:28 | disposition home or self-care (01) ==
PROVIDERS: PCP Internal Medicine; Visit Provider Nurse Practitioner Family
DX: J45.909 Unspecified asthma, uncomplicated (principal); G47.33 Obstructive sleep apnea (adult) (pediatric); I27.20 Pulmonary hypertension, unspecified; Z86.711 Personal history of pulmonary embolism; G47.34 Idiopathic sleep related nonobstructive alveolar hypoventilation; F17.210 Nicotine dependence, cigarettes, uncomplicated
CPT/HCPCS: 94618; 99214

== ENCOUNTER → 2023-10-02 14:19 | Outpatient (BNVA) | payer MEDICAID, SELFPAY | PROVIDERS: PCP Internal Medicine; Visit Provider Nurse Practitioner Family | DX: J45.909 Unspecified asthma, uncomplicated (principal); G47.33 Obstructive sleep apnea (adult) (pediatric); I27.20 Pulmonary hypertension, unspecified; G47.34 Idiopathic sleep related nonobstructive alveolar hypoventilation; F17.210 Nicotine dependence, cigarettes, uncomplicated; Z86.711 Personal history of pulmonary embolism | CPT/HCPCS: 94618; 99212 ==

== ENCOUNTER 2024-11-11 09:47 | Outpatient (AMB) | payer MEDICAID, SELFPAY ==
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
[2024-11-11 09:54] VITALS: BP 128/80; PULSE 89; O2SAT 96
--- OUTSIDE RECORDS SUMMARY | 2024-11-11 11:31 | XMS_ITS | Encounter Summary ---
Author Organization [employer] Address [address] [facility] [address] [place] [address] Care Team Providers Care Policy Value Calculator Name Role Phone Kacie Caceres MD Primary Care Provide r Reason for Visit * Reason Comments Care Coordination Outreach Encounter Details Date Type Department Care Team (Latest Contact Info) Description 10/21/2024 Patient Outreach [facility] CHC MED & PEDS [address] [place] [address] Kacie Caceres MD [address] [place] [address] Care Coordination (Outreach) Social History Tobacco Use Types Packs/Day Years Used Date Smoking Tobacco: Every Day Cigarettes Passive Smoke Exposure: Current Smokeless Tobacco: Never Alcohol Use Standard Drinks/Week Comments Never 0 (1 standard drink = 0.6 oz pur e alcohol) Depression Answer Date Recorded Patient Health Questionnaire-9 Score 18 08/20/2024 Patient Health Questionnaire-9 Score 18 08/20/2024 Last PHQ-9: Questionnaire Data Not on file 1 10/20/2023 Housing Stability Answer Date Recorded What is your housing situation today? I have wilton klein 07/30/[address] you li ve. Do you have problems with any of the following? None of the above 07/30/2023 Food Insecurity Answer Date Recorded Within the past 12 months, y ou worried that your food would run out before you got money to buy more: Never True 07/30/2023 Within the past 12 months,th e food you bought just didn't last and you didn't have enough money to get more: Never True Transportation Answer Date Recorded In the past 12 months, has l ack of transportation kept you from medical appts, meetings, work or from getting things needed for daily living? No 07/15/2024 Utilities Answer Date Recorded In the past 12 months, has t he electric, gas, oil or water company threatened to shut off services in your home? No 07/30/2023 Depression Answer Date Recorded Patient Health Questionnaire-2 Score 3 08/20/2024 Internet Access Answer Date Recorded Internet Access Q1 Yes 07/15/2024 Internet Access Q2 Not on file 07/15/2024 Sex and Gender Information Value Date Recorded Sex Assigned at Male 08/13/2022 10:38 AM EDT Legal Sex Male 10:38 AM EDT Gender Identity Male 08/13/2022 10:38 AM EDT Sexual Orientation Don't know 08/13/2022 10 :38 AM EDT documented as of this encounter Progress Notes * Jacqueline Galarza - 10/21/2024 10:45 AM EST CHW Jacqueline Galarza, placed outbound call to patient introducing herself from [facility], in regards to offering services. Patient's name and was confirmed. Patient agrees to participate in program. Appt. for initial assessment scheduled for 10/28/24 @ 10:00 AM. CHW reinforced direct contact information or for any additional questions or concerns and extended clinic hours on Mondays and Wednesdays, and Walk-In Urgent Care Located in [facility]. Patient provided with after-hours line for [facility], , which offer night time triage service and option to transfer to architectural sales consultant provider if needed. Patient verbalizes understanding, and able to repeat back to music writer. documented in this encounter Plan of Treatment Upcoming Encounters Date Type Department Care Team (Late st Contact Info) Description 12/29/2024 9:15 AM EDT Office Visit [facility] MEDICINE [address] [place] [address] [phone] Kacie Caceres MD [address] [place] [address] 01/01/2025 9:30 AM EDT Office Visit [facility] MEDICINE [address] [place] [address] Pam Pablo MD [address] [place] [address] documented as of this encounter Visit Diagnoses Not on filedocumented in this encounter Additional Health Concerns Assessment Noted Time PHQ-9 Depression Total Score: 18 024 8:12 AM EST documented as of this encounter Care Teams Policy Value Calculator Relationship Specialty Start Date End Date Kacie Caceres MD [address] [place] [address] PCP - General Family Medicine 01/27/21 documented as of this encounter
--- OUTSIDE RECORDS SUMMARY | 2024-11-11 11:31 | XMS_ITS | Encounter Summary ---
Author Organization [employer] Address [address] [facility] 7[address] [place] [address] Care Team Providers Care Sharemilker Name Role Phone Kacie Caceres MD Primary Care Provide r Reason for Visit * Reason Comments Care Coordination Outreach Encounter Details Date Type Department Care Team (Latest Contact Info) Description 11/10/2024 Patient Outreach [facility] CHC MED & PEDS [address] [place] [address] Kacie Caceres MD [address] [place] [address] Care Coordination (Outreach) Social History Tobacco Use [...] encounter Progress Notes * Jacqueline Galarza - 11/10/2024 10:09 AM EST CHW Jacqueline Galarza placed outbound call to patient. No answer at this time. LVM introducing herself from [facility] CM Department, reminding patient of appointment on 11/11/24 @ 10:00 AM @ [facility] [place]. Requested call back to or , as well as for any additional questions or concerns. documented in this encounter Plan of Treatment Upcoming Encounters Date Type Department Care Team (Late st Contact Info) Description 12/29/2024 9:15 AM EDT Office Visit [facility] MEDICINE [address] [place] [address] [phone] Kacie Caceres MD [address] [place] [phone] 01/01/2025 9:30 AM EDT Office Visit [facility] MEDICINE [address] [place] [address] [phone] Pam Pablo MD [address] [place] [phone] documented as of this encounter Visit Diagnoses Not on filedocumented in this encounter Additional Health Concerns Assessment Noted Time PHQ-9 Depression Total Score: 18 024 8:12 AM EST documented as of this encounter Care Teams Sharemilker Relationship Specialty Start Date End Date Kacie Caceres MD [address] [place] [address] PCP - General Family Medicine 01/27/21 documented as of this encounter
--- OUTSIDE RECORDS SUMMARY | 2024-11-11 11:31 | XMS_ITS | Encounter Summary ---
Author Organization [employer] [facility] Address [address] [facility] 7[address] [place] [address] Care Team Providers Care Security System Sales Consultant Name Role Phone Kacie Caceres MD Primary Care Provide r Encounter Details Date Type Department Care Team (Late st Contact Info) Description 10/26/2022 Orders Only [facility] MEDICINE [address] [place] [address] [phone] Alaina Pelayo MD [address] [place] [address] [phone] Smoker (Primary Dx) Social History Tobacco Use Types Packs/Day Years Used Date Smoking Tobacco: Every Day Cigarettes Smokeless Tobacco: Never Alcohol Use Standard Drinks/Week Comments Never 0 (1 standard drink = 0.6 oz pur e alcohol) Sex and Gender Information Value Date Recorded Sex Assigned at Male 08/13/2022 10:38 AM EDT Legal Sex Male 10:38 AM EDT Gender Identity Male 08/13/2022 10:38 AM EDT Sexual Orientation Don't know 08/13/2022 10 :38 AM EDT COVID-19 Exposure Response Date Recorded In the last 10 days, have yo u been in contact with someone who was confirmed or suspected to have Coronavirus/COVID-19? No / Unsure 10/18/2022 2:49 PM EST documented as of this encounter Plan of Treatment Upcoming Encounters Date Type Department Care Team (Late st Contact Info) Description 12/29/2024 9:15 AM EDT Office Visit [facility] MEDICINE [address] [place] [address] [phone] Kacie Caceres MD [address] [place] [address] [phone] 01/01/2025 9:30 AM EDT Office Visit [facility] MEDICINE [address] [place] [address] Pam Pablo MD [address] [place] [address] documented as of this encounter Visit Diagnoses Diagnosis Smoker- Primary Tobacco use disorder documented in this encounter Care Teams Security System Sales Consultant Relationship Specialty Start Date End Date Kacie Caceres MD [address] [place] [phone] PCP - General Family Medicine 01/27/21 Stacey Renae Gamer 07/24/23 10/24/23 documented as of this encounter
--- OUTSIDE RECORDS SUMMARY | 2024-11-11 11:31 | XMS_ITS | Encounter Summary ---
Author Organization [employer] Address [address] [facility] [address] [place] [address] Care Team Providers Care Raw Cheese Worker Name Role Phone Kacie Caceres MD Primary Care Provide r Reason for Visit * Reason Comments Care Coordination Outreach Encounter Details Date Type Department Care Team (Latest Contact Info) Description 10/27/2024 Patient Outreach [facility] CHC MED & PEDS [address] [place] [address] Kacie Caceres MD [address] [place] [address] Care Coordination (Outreach) Social History Tobacco Use [...] encounter Progress Notes * Jacqueline Galarza - 10/27/2024 10:37 AM EST CHW Jacqueline Galarza placed outbound call to patient introducing herself from [facility] CM Department, in regards to remind patient of Adult Complex Care program initial assessment appt for tomorrow 10/28/24 @ 10:00 AM via telephone. Patient's name and was confirmed. Patient is aware andconfirmed will be available for call and has no barriers on attending call. Patient verbalized understanding and agrees with plan. documented in this encounter Plan of Treatment Upcoming Encounters Date Type Department Care Team (Late st Contact Info) Description 12/29/2024 9:15 AM EDT Office Visit [facility] MEDICINE [address] [place] [phone] Kacie Caceres MD [address] [place] [phone] 01/01/2025 9:30 AM EDT Office Visit [facility] MEDICINE [address] [place] [phone] Pam Pablo MD [address] [place] [phone] documented as of this encounter Visit Diagnoses Not on filedocumented in this encounter Additional Health Concerns Assessment Noted Time PHQ-9 Depression Total Score: 18 024 8:12 AM EST documented as of this encounter Care Teams Raw Cheese Worker Relationship Specialty Start Date End Date Kacie Caceres MD [address] [place] [address] PCP - General Family Medicine 01/27/21 documented as of this encounter
--- OUTSIDE RECORDS SUMMARY | 2024-11-11 11:31 | XMS_ITS | Encounter Summary ---
Author Organization [facility] Address [address] [place] [address] Care Team Providers Care Laser Specialist Name Role Phone Unavailable Primary Care Provider Unavailabl e Reason for Visit * Reason Comments Behavioral Health Medication Management Encounter Details Date Type Department Care Team (Latest Contact Info) Description 11/10/2024 8:00 AM EST Behavioral Health Visit [facility] [address] [place] [phone] Reed Tan, HNP [address] [place] [address] [place] [phone] PTSD (post-traumatic stress disorder) (Primary Dx); Alcoholic (HCC-CMS); Moderate episode of recurrent major depressive disorder (HCC-CMS); KRISTA (generalized anxiety disorder) Social History Tobacco Use Types Packs/Day Years Used Date Smoking Tobacco: Every Day Cigarettes Smokeless Tobacco: Current Comments:Inhaler helps to cu t back cigarettes; patch other do not work Alcohol Use Standard Drinks/Week Comments Not Currently 0 (1 standard drink = 0.6 oz pure alcohol) family h/o alcoholism; drank 2022 it helped stomach pain Social Connections Answer Date Recorded Connectedness 0 08/20/2024 Financial Resource Strain Answer Date R ecorded Financial Resource Strain 0 2023 Stress Answer Date Recorded Stress 0 08/20/2024 Physical Activity Answer Date Recorded Physical Activity 0 08/20/2024 Food Insecurity Answer Date Recorded Food 0 08/20/2024 Transportation Needs Answer Date Record ed Transportation 0 08/20/2024 Housing Stability Answer Date Recorded Housing 0 08/20/2024 Safety and Environment Answer Date Darren rded Safety 0 08/20/2024 Utilities Answer Date Recorded Utilities 0 08/20/2024 Employment Answer Date Recorded Stress 0 08/20/2024 Sex and Gender Information Value Date Recorded Sex Assigned at Male 08/20/2024 2:14 PM PST Legal Sex Male 2:14 PM PST Gender Identity Male 08/20/2024 2:14 PM PST Sexual Orientation Not on file documented as of this encounter Progress Notes * FABIEN Chairez - 11/10/2024 8:28 AM ESTAssociated Problem(s): KRISTA (generalized anxiety disorder) A: improving P: cont sertraline 100 mg po qam * FABIEN Chairez - 11/10/2024 8:28 AM ESTAssociated Problem(s): Moderate episode of recurrent major depressive disorder (HCC-CMS) A: denies current depressed mood. Plan: olanzapine 10 mg po qhs, sertraline 100 mg qam, * ZEB ChairezP - 11/10/2024 8:27 AM ESTAssociated Problem(s): Alcoholic (HCC-CMS) Denies current/recent alcohol use. * FABIEN Chairez - 11/10/2024 8:27 AM ESTAssociated Problem(s): PTSD (post-traumatic stress disorder) A: meets criteria for PTSD, remains symptomatic though with some improvement in sleep onset. PLAN: continue olanzapine to 10 mg po qhs for mood, sleep; continue sertraline 100 mg qam, refer totherapy. Pcp appt 11/20/24. Pulmonology 11/11/24. * Reed Tan, HNP - 11/10/2024 8:00 AM EST [facility] OFFICE VISIT Name: Lino Bradley : 1985 PCP: No primary care provider on file. ASSESSMENT AND PLAN Problem List Items Addressed This Visit Alcoholic ([facility]) Denies current/recent alcohol use. Moderate episode of recurrent major depressive disorder ([facility]) A: denies current depressed mood. Plan: olanzapine 10 mg po qhs, sertraline 100 mg qam, KRISTA (generalized anxiety disorder) A: improving P: cont sertraline 100 mg po qam PTSD (post-traumatic stress disorder) - Primary A: meets criteria for PTSD, remains symptomatic though with some improvement in sleep onset. PLAN: continue olanzapine to 10 mg po qhs for mood, sleep; continue sertraline 100 mg qam, refer totherapy. Pcp appt 11/20/24. Pulmonology 11/11/24. Follow-up: No follow-ups on file. [facility], [facility] 11/10/2024 8:06 AM EST REASON FOR VISIT Chief Complaint Patient presents with Behavioral Health Medication Management HPI/ROS Last visit 10/27/24.. Can fall asleep since increasing olanzapine to 10 mg qhs. Staying asleep for 4-5 hrs, thinking about nightmare or other, anxious. Sometimes gets up, tries again later to return to sleep. Racing thoughts at night, anxiety. No naps, cup coffee in morning [this is new]. H/o being up for days, then sleeps couple of hours. Sometimes feels over energized, hard time thinking straight. Can last all day, never lasts more than 2 consecutive days. Last time was 2 weeks ago. Feels nervous during these periods. Not depressed or down. Continues to isolate at home. This is typical. Spends time with 17 yo son. 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 Wants son to accompany pt in [place]. May stay behind to finish school. Pt has full custody of son, both staying with pt's fa. Appetite varies. Lost weight [weighs 300 lbs, lost about 200 lbs over 1 year]. Nausea after eating. Has to force self to eat. Waiting on GI appt. Pulmonary appt tomorrow. PCP 11/20/24. CHW Jacqueline Galarza. H/o trazodone [201, did not like], clonidine [ineffective], remeron [ineffective], clonazepam [2017], melatonin, benadryl, hydroxyzine ineffective. Risperdal- ineffective. Seroquel- arms buzz. Ambien, lunesta- ineffective. Sleep study- had sleep apnea but does not use cpap. Feels it was ineffective. Also, has lost a lot of weight and may not need anymore. 10/02 rozerem, olanzapine 7.5 mg qhs poor effect. continue sertraline 100 mg qam, olanzapine 10 mg po qhs. Denies s/e. Occ cannabis but intensifies racing htoughts. No often. PHQ No data to display Review of Systems Constitutional: Positive for fatigue. Psychiatric/Behavioral: Positive for sleep disturbance. Negative for decreased concentration, dysphoric mood, hallucinations, self-injury and suicidal ideas. The patient is nervous/anxious. The patient is not hyperactive. VITALS: There were no vitals filed for this visit. Physical Exam Psychiatric: Attention and Perception: Attention and perception normal. Mood and Affect: Mood is anxious. Mood is not depressed. Speech: Speech normal. He is communicative. Behavior: Behavior normal. Behavior is cooperative. Thought Content: Thought content normal. Cognition and Memory: Cognition and memory normal. Judgment: Judgment normal. Visit conducted via Telehealth with video.. Telehealth Provided in Patient's Home. TELEMEDICINE ATTESTATION I verified the patient by the patients name, date of and insurance ID. I disclosed my identity and credentials. I reviewed, as appropriate, relevant history and medical records with the patient. I determined that I could provide the same standard of care and if I determined I could not do that during the telemedicine visit, I directed the patient to seek in person care. I discussed confidentiality rights with the patient. I disclosed my location and discussed the patient location. I discussed how the patient can see a clinician in-person in the event of an emergency or as otherwise needed. . FABIEN DEL CASTILLO 11/10/2024 documented in this encounter Plan of Treatment Upcoming Encounters Date Type Department Care Team (Late st Contact Info) Description 11/24/2024 10:00 AM EST Behavioral Health Visit [facility] [address] [place] [phone] Reed Tan, PMHNP [address] [facility] [place] [phone] documented as of this encounter Visit Diagnoses Diagnosis PTSD (post-traumatic stress disorder)- Primary Posttraumatic stress disorder Alcoholic (HCC-CMS) Other and unspecified alcohol dependence, unspecified drinking behavior Moderate episode of recurrent major depressive disorder (HCC-CMS) KRISTA (generalized anxiety disorder) Generalized anxiety disorder documented in this encounter
--- OUTSIDE RECORDS SUMMARY | 2024-11-11 11:31 | XMS_ITS | Clinical Summary ---
Author Organization [facility] Address [address] [place] [address] Care Team Providers Care Ex Chef Name Role Phone Unavailable Primary Care Provider Unavailabl e Source Comments PLEASE NOTE, if this patient is a minor, it may be UNLAWFUL to discuss sensitive information that is contained in these records (such as FAMILY PLANNING, MENTAL HEALTH or SUBSTANCE ABUSE) with the minor patient's parent or other person without the patient's specific authorization.[facility] Allergies Active Allergy Reactions Criticality Noted Date Comments Amoxicillin Anaphylaxis High 09/15/2024 Penicillins Anaphylaxis High 09/15/2024 Medications omeprazole (PRILOSEC) [address] capsule Take 40 mg by mouth every morning before breakfast Active cyclobenzaprine (FLEXERIL) 5 mg tablet Take 5 mg by mouth 2 (two) times daily as needed 4 Active folic acid (FOLVITE) 1 mg tablet Take 1 mg by mouth daily 4 Active nicotine (NICOTROL) 10 mg inhalerIndicati ons:Smoker Inhale 1 Puff into the lungs as needed for smoking cessation 10 Each 1 4 Active OLANZapine (ZYPREXA) 10 mg tabletIndicatio ns:PTSD (post-traumatic stress disorder),Moder ate episode of recurrent major depressive disorder (HCC-CMS) Take 1 Tablet by mouth nightly at bedtime 30 Tablet 1 5 Active sertraline (ZOLOFT) 100 mg tabletIndicatio ns:PTSD (post-traumatic stress disorder),Moder ate episode of recurrent major depressive disorder (HCC-CMS),KRISTA (generalized anxiety disorder) Take 1 Tablet by mouth once daily 30 Tablet 1 5 Active OLANZapine (ZYPREXA) 7.5 mg tabletIndicatio ns:PTSD (post-traumatic stress disorder),Moder ate episode of recurrent major depressive disorder (HCC-CMS),KRISTA (generalized anxiety disorder) Take 1 Tablet by mouth nightly at bedtime 30 Tablet 4 10/27/19 25 Discontinu ed(Quantit y/Dosage and/or Sig change) sertraline (ZOLOFT) 50 mg tabletIndicatio ns:PTSD (post-traumatic stress disorder),Moder ate episode of recurrent major depressive disorder (HCC-CMS),KRISTA (generalized anxiety disorder) Take 1 tab po qam 30 Tablet 4 10/27/19 25 Discontinu ed(Quantit y/Dosage and/or Sig change) ramelteon (ROZEREM) 8 mg tabletIndicatio ns:PTSD (post-traumatic stress disorder),Moder ate episode of recurrent major depressive disorder ([facility]) Take 1 Tablet by mouth nightly at bedtime as needed for sleep 30 Tablet 4 10/27/19 25 Discontinu ed(Ineffec tive therapy) Active Problems Problem Noted Date Diagnosed Date Concussion 09/25/2024 Impaired glucose tolerance 09/25/2024 Overview (09/25/2024): pt lost 125 lbs, A1c 6.0 or under since 01/2008 Social phobia 09/25/2024 Acute pain of right knee 09/17/2024 Unstable right knee 09/17/2024 Homeless 08/20/2024 Moderate episode of recurren t major depressive disorder ([facility]) 08/20/2024 Assessment & Plan (11/10/2024 8:28 AM EST): A: denies current depressed mood. Plan: olanzapine 10 mg po qhs, sertraline 100 mg qam, Assessment & Plan (10/27/2024 9:55 AM EST): Plan: olanzapine 10 mg po qhs, sertraline 100 mg qam, Assessment & Plan (10/06/2024 11:02 AM EST): Plan: olanzapine 7.5 mg po qhs, cont sertraline 50 mg qam, Nicotrol- different pharm. Do not smoke in middle of night, activating. Psycho ed provided, do not take pills not prescribed. Assessment & Plan (09/29/2024 12:08 PM EST): A: depressed mood with associated sxs. P: continue sertraline, refer to therapy. increase olanzapine to 5 mg po qhs for mood, sleep. Assessment & Plan (09/25/2024 3:51 PM EST): A: depressed mood with associated sxs. P: continue sertraline, refer to therapy. trial olanzapine 2.5 mg po qhs for mood, sleep. Assessment & Plan (09/25/2024 3:32 PM EST): A: depressed mood with associated sxs. P: start sertraline, refer to therapy. KRISTA (generalized anxiety disorder) 08/20/2024 Assessment & Plan (11/10/2024 8:28 AM EST): A: improving P: cont sertraline 100 mg po qam Assessment & Plan (10/27/2024 9:56 AM EST): A: anxiety P: cont sertraline and increase to 100 mg po qam Assessment & Plan (10/06/2024 11:02 AM EST): A: anxiety P: cont sertraline 50 mg po qam with plan to titrate up to effective dose Assessment & Plan (09/29/2024 12:08 PM EST): A: anxiety P: cont sertraline 50 mg po qam with plan to titrate up to effective dose PTSD (post-traumatic stress disorder) 08/20/2024 Assessment & Plan (11/10/2024 8:27 AM EST): A: meets criteria for PTSD, remains symptomatic though with some improvement in sleep onset. PLAN: continue olanzapine to 10 mg po qhs for mood, sleep; continue sertraline 100 mg qam, refer to therapy. Pcp appt 11/20/24. Pulmonology 11/11/24. Assessment & Plan (10/27/2024 11:19 AM EST): A: meets criteria for PTSD, remains symptomatic PLAN: increase olanzapine to 10 mg po qhs for mood, sleep; increase sertraline to 100 mg qam, refer to therapy. assessment with Tesha Jolley RN 10/28/23. needs pcp appt, missed last visit. needs labs, TSH, vit D. RN to message pcp. Assessment & Plan (09/25/2024 3:52 PM EST): A: meets criteria for PTSD PLAN: trial olanzapine 2.5 mg po qhs for mood, sleep. Continue sertraline, refer to therapy. Assessment & Plan (09/25/2024 3:32 PM EST): A: meets criteria for PTSD P: start sertraline, refer to therapy. Alcoholic ([facility]) 08/19/2024 Assessment & Plan (11/10/2024 8:27 AM EST): Denies current/recent alcohol use. Bilirubin in urine 08/19/2024 Blood in urine 08/19/2024 Opioid dependence ([facility]) 08/19/2024 UTI symptoms 08/19/2024 Unintentional weight loss 07/22/2024 Herpes zoster without complication 07/17/2024 Epigastric pain 07/17/2024 History of cholecystectomy 10/01/2023 Obstructive sleep apnea 09/30/2023 Generalized abdominal pain 09/02/2023 Abdominal wall seroma 07/31/2023 Dermatitis 06/13/2023 Scalp pruritus 06/13/2023 Open chest wound 05/23/2023 Dyspnea on exertion 03/25/2023 Acute pulmonary embolism wit hout acute cor pulmonale ([facility]) 01/02/2023 Cellulitis of chest wall 10/18/2022 Chronic congestive heart failure ([facility]) 10/18 Class 3 severe obesity due t o excess calories with serious comorbidity and body mass index (BMI) of 50.0 to 59.9 in adult ([facility]) 10/18/2022 Essential hypertension 10/18/2022 Folliculitis 10/18/2022 Smoker 10/18/2022 Encounters Date Type Department Care Team Description 11/10/2024 8:00 AM EST Behavioral Health Visit [facility] [address] [place] [phone] Reed Smith PMLAINEP PTSD (post-traumatic stress disorder) (Primary Dx); Alcoholic (HCC-CMS); Moderate episode of recurrent major depressive disorder (HCC-CMS); KRISTA (generalized anxiety disorder) 10/27/2024 8:00 AM EST Behavioral Health Visit [facility] [address] [place] [phone] Reed Smith PMHNP PTSD (post-traumatic stress disorder) (Primary Dx); Moderate episode of recurrent major depressive disorder (HCC-CMS); KRISTA (generalized anxiety disorder) 10/27/2024 / TELEPHONE [facility] [address] [place] [phone] Reed Smith, PMHNP 10/02/2024 9:15 AM EST / Visits [address] [place] [phone] Reed Smith PMLAINEP KRISTA (generalized anxiety disorder) (Primary Dx); PTSD (post-traumatic stress disorder); Moderate episode of recurrent major depressive disorder (HCC-CMS); Smoker 09/29/2024 9:30 AM EST Behavioral Health Visit [facility] [address] [place] [phone] Reed Smith, PMHNP Moderate episode of recurrent major depressive disorder (HCC-CMS) (Primary Dx); KRISTA (generalized anxiety disorder) 09/29/2024 / TELEPHONE [address] [place] [phone] Reed Smith, PMHNP 09/22/2024 8:30 AM EST Behavioral Health Visit [facility] [address] [place] [phone] Reed Smith PMHNP Moderate episode of recurrent major depressive disorder (HCC-CMS) (Primary Dx); PTSD (post-traumatic stress disorder) 09/15/2024 10:00 AM EST Behavioral Health Visit [facility] [address] [place] [phone] Reed Smith PMHNP PTSD (post-traumatic stress disorder) (Primary Dx); Moderate episode of recurrent major depressive disorder (HCC-CMS) from Last 3 Months Family History Medical History Relation Name Comments Alcohol/Drug Abuse Father Relation Name Status Comments Father Social History Tobacco Use Types Packs/Day Years Used Date Smoking Tobacco: Every Day Cigarettes Smokeless Tobacco: Current Tobacco Cessation:Ready to Q uit: Yes; Counseling Given: Yes Comments:Inhaler helps to cut back cigarettes; patch other do not work [...] PM PST Sexual Orientation Not on file Plan of Treatment Upcoming Encounters Date Type Department Care Team ([facility] Contact Info) Description 11/24/2024 10:00 AM EST Behavioral Health Visit [facility] [address] [place] [phone] Reed Smith PMHNP [address] [place] [phone] Health Maintenance Due Date Last Done Comments Depression Monitoring 1985 Hepatitis C Screening 1985 Imm-Pneumococcal (2 of 2 - PCV) 05/17/2009 8, 09/25/2007 Diabetes Screening 01/27/2022 01/27/2021 HIV Screening 01/27/2022 01/27/2021, 01/27/2021 Lipid Screening 01/27/2022 01/27/2021 Rep-[id number] ( season) 2024 021, 02/06/2021 Alcohol and Drug Screen 10/14/2024 Tobacco Cessation Counseling (#1) 10/02/2025 Imm-DTaP/Tdap/Td (2 - Td or Tdap) 03/30/2028 018, 05/17/2008 Imm-Hepatitis A Completed 10/12/2008, 04/13, 03/03/2008 Imm-Hepatitis B Completed 10/12/2008, 04/13, 03/03/2008, Additional history exists Imm-Influenza Completed 07/22/2024, 08/15, 07/28/2014, Additional history exists Insurance [facility] [place] MEDICA[place]
--- OUTSIDE RECORDS SUMMARY | 2024-11-11 11:31 | XMS_ITS | Encounter Summary ---
Author Organization [employer] Address [address] [facility] [address] [place] [address] Care Team Providers Care Change Management Analyst Name Role Phone Kacie Caceres MD Primary Care Provide r Reason for Visit * Reason Onset Date Comments Care Coordination 10/28/2024 C3 initial a ssessment/ enrollment Encounter Details Date Type Department Care Team ([facility] Contact Info) Description 10/28/2024 Telephone [facility] [address] [place] [address] Tesha Jolley RN [address] [place] [address] Care Coordination ([facility] initial assessment/ enrollment) Social History Tobacco Use Types Packs/Day Years [...] AM EDT documented as of this encounter Miscellaneous Notes * Telephone Encounter - Tesha Jolley RN - 10/29/2024 9:20 AM EST JOSEPH Jolley RN, provided notification to PCP Dr. Hendrickson of patient's enrollment into [facility]3 Complex Care Program. JOSEPH Jolley RN, completed care plan and sent to HIM to be scanned into the medical record. PCP notified and awaiting review from provider. CM plan is to remind pt of his medical appointments and ensure that pt has a form of transportationto these appointments. CM will assist to coordinate care for pt and assist pt with rescheduling missed appts with PCP and specialist. CM plan is to educate pt on disease management and ensure pt is compliance with all recommendationswith his PCP and specialist CM plan is to advocate for pt for his medical needs. * Telephone Encounter - Tesha Jolley RN - 10/29/2024 9:19 AM EST JOSEPH Jolley RN placed outbound call to patient for agreed upon time for initial assessment for enrollment into Adult Care Management Program. Patient's name, , and address were verified. Patient is a 39 year old male with medical history significant for chronic congestive heart failure, essential hypertension, Opioid dependence. JOSEPH spoke with pt who states he recently had tooth extraction and was started on ABT. Pt states pain has improved and is compliant with all his medication including his BP medication. Pt states he doesn't check his BP at home because he has no BP machine. Pt is requesting BP machine. CM has sent a message to PCP regarding pt's request. Pt states he stays with friends and will need assistance with low-income housing. CHW will assist pt with his request. Pt reports he hasn't received his food stamp because he was supposed to complete annual paperwork. Pt states he will call the office to renew his food stamp. Pt states he is currently not working and needs assistance with finding a job. CHW will assist pt with job search. Pt states he has a form of transportation to all his appointments. Pt states he eats regular diet. CM educated pt on cardiac diet and the need to decrease salt and sodium in his diet. According to pt, he walks as a form of exercise and has lost a lot of weight but will like to lose more weight. Pt agreed to discuss with PCP during upcoming appt regarding referral to nutrition for education on weight lost management with diet. Pt c/o chronic knee pain and states he takes APAP and IBU for the pain with good effect. Pt states he sees the psych provider 2-3 months. Pt was seen by psych yesterday and ordered labs for Vit D and thyroid. Pt states he also sees the therapist bi weekly. Pt states he is depressed most of the timesbut denies SI/HI. Pt states he has the number for crisis and contracted to safety. 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 CM reached out to [facility] pulmonology and spoke with Roseanne who assisted to schedule an appt for11/11/24 at 10am. Pt informed of appt date and time. Pt states he feels safe at where he is living and has quit drinking. Pt states he smokes 5 sticks of cigarette a day and has been sober from illegal drugs for 3 months. Pt states he is now onmethadone and goes to the methadone clinic. Pt denies any personal goals at this time but states hewill update CM if he has any personal goals in the future. CM plan is to remind pt of his medical appointments and ensure that pt has a form of transportationto these appointments. CM will assist to coordinate care for pt and assist pt with rescheduling missed appts with PCP and specialist. CM plan is to educate pt on disease management and ensure pt is compliance with all recommendationswith his PCP and specialist CM plan is to advocate for pt for his medical needs. Care management program explained and contact information given. Patient verbalizes understanding, and able to repeat back to clinical writer. A follow up call will be placed within 10 days, patient agrees with plan. * Telephone Encounter - Tesha Jolley RN - 10/28/2024 11:19 AM EST JOSEPH spoke with pt's psychiatrist Reed from [facility] who will like PCP to order labs for Vit D and thyroid for pt. Reed can be reached at [phone]. JOSEPH spoke with pt who is requesting Rx for BP machine sent to the pharmacy. Pt has an upcoming appt with PCP for 10/30/20 documented in this encounter Plan of Treatment Upcoming Encounters Date Type Department Care Team (Late st Contact Info) Description 12/29/2024 9:15 AM EDT Office Visit [facility] [address] [place] [phone] Kacie Caceres MD [address] [place] [phone] 01/01/2025 9:30 AM EDT Office Visit [facility] [address] [place] [phone] Pam Pablo MD [address] [place] [phone] documented as of this encounter Visit Diagnoses Not on filedocumented in this encounter Additional Health Concerns Assessment Noted Time PHQ-9 Depression Total Score: 18 08/20/ 024 8:12 AM EST documented as of this encounter Care Teams Change Management Analyst Relationship Specialty Start Date End Date Kacie Caceres MD [address] [place] [address] PCP - General Family Medicine 01/27/21 documented as of this encounter
--- OUTSIDE RECORDS SUMMARY | 2024-11-11 11:31 | XMS_ITS | Encounter Summary ---
Author Organization [employer] Address [address] [facility] [address], [place] [address] Care Team Providers Care Nurse First Assist Name Role Phone Kacie Caceres MD Primary Care Provide r Reason for Visit * Reason Onset Date Comments Appointment Request 02/26/2023 Encounter Details Date Type Department Care Team (Late st Contact Info) Description 02/26/2023 Telephone [facility] [address] [place], [place] [phone] Kacie Caceres MD [address] [place], [place] [phone] Appointment Request Social History Tobacco Use Types Packs/Day Years Used Date Smoking Tobacco: Every Day Cigarettes Smokeless Tobacco: Never Alcohol Use Standard Drinks/Week Comments Never 0 (1 standard drink = 0.6 oz pur e alcohol) PHQ-2 Answer Date Recorded Patient Health Questionnaire-2 Score 0 01/02/2023 Depression Answer Date Recorded Patient Health Questionnaire-2 Score 0 01/02/2023 Sex and Gender Information Value Date Recorded Sex Assigned at Male 08/13/2022 10:38 AM EDT Legal Sex Male 10:38 AM EDT Gender Identity Male 08/13/2022 10:38 AM EDT Sexual Orientation Don't know 08/13/2022 10 :38 AM EDT documented as of this encounter Miscellaneous Notes * Telephone Encounter - Shakira Stevens - 02/26/2023 11:57 AM EDT Tc from pt calling to r/s todays no show appt . States forgot to update new phone # . Appt details FMLA concern . Fly Rail Operator attempt to book nothing available for the rest of february . documented in this encounter Plan of Treatment Upcoming Encounters Date Type Department Care Team (Late st Contact Info) Description 12/29/2024 9:15 AM EDT Office Visit [facility] [address] [place] [phone] Kacie Caceres MD [address] [place] [address] 01/01/2025 9:30 AM EDT Office Visit [facility] [address] [place] [address] Pam Pablo MD [address] [place] [address] [phone] documented as of this encounter Visit Diagnoses Not on filedocumented in this encounter Care Teams Nurse First Assist Relationship Specialty Start Date End Date Kacie Caceres MD [address] [place] [address] [phone] PCP - General Family Medicine 01/27/21 Stacey Renae Tree Worker 07/24/23 10/24/23 documented as of this encounter
--- OUTSIDE RECORDS SUMMARY | 2024-11-11 11:31 | XMS_ITS | Encounter Summary ---
Author Organization [employer] [facility] Address [address] [place] [address] [address] [place] [address] Care Team Providers Care Freight Loader Name Role Phone Kacie Caceres MD Primary Care Provide r Reason for Visit * Reason Comments Med Change Request Encounter Details Date Type Department Care Team (Late Contact Info) Description 01/04/2023 Refill [facility] [address] [place] [address] [phone] Vannesa Lama MD [address] [place] [address] [phone] Smoker Social History Tobacco Use Types Packs/Day Years [...] suspected to have Coronavirus/COVID-19? No / Unsure 01/02/2023 9:32 AM EDT documented as of this encounter Plan of Treatment Upcoming Encounters Date Type Department Care Team (Late Contact Info) Description 12/29/2024 9:15 AM EDT Office Visit [facility] [address] [place] [address] [phone] Kacie Caceres MD [address] [place] [address] 01/01/2025 9:30 AM EDT Office Visit [facility] [address] [place] [address] [phone] Pam Pablo MD [address] [place] [address] documented as of this encounter Visit Diagnoses Diagnosis Smoker Tobacco use disorder documented in this encounter Care Teams Freight Loader Relationship Specialty Start Date End Date Kacie Caceres MD [address] [place] [phone] PCP - General Family Medicine 01/27/21 Stacey Renae Char Filter Tank Tender 07/24/23 10/24/23 documented as of this encounter
--- OUTSIDE RECORDS SUMMARY | 2024-11-11 11:31 | XMS_ITS | Encounter Summary ---
Author Organization [employer] Address [address] [facility] [address] [place] [address] Care Team Providers Care Pharmacist Manager Name Role Phone Kacie Caceres MD Primary Care Provide r Encounter Details Date Type Department Care Team (Latest Contact Info) Description 10/30/2024 Travel Social History Tobacco Use Types Packs/Day Years [...] Description 12/29/2024 9:15 AM EDT Office Visit [facility] [address] [place] [phone] Kacie Caceres MD [address] [place] [address] [phone] 01/01/2025 9:30 AM EDT Office Visit [facility] [address] [place] [phone] Pam Pablo MD [address] [place] [phone] documented as of this encounter Visit Diagnoses Not on filedocumented in this encounter Additional Health Concerns Assessment Noted Time PHQ-9 Depression Total Score: 18 024 8:12 AM EST documented as of this encounter Care Teams Pharmacist Manager Relationship Specialty Start Date End Date Kacie Caceres MD [address] [place] [address] [phone] PCP - General Family Medicine 01/27/21 documented as of this encounter
--- OUTSIDE RECORDS SUMMARY | 2024-11-11 11:31 | XMS_ITS | Encounter Summary ---
Author Organization [employer] Address [address] [facility] [address] [place] [address] Care Team Providers Care Button Facing Machine Operator Name Role Phone Kacie Caceres MD Primary Care Provide r Reason for Visit * Reason Onset Date Comments Med Change Request Med Refill 10/19/[address] Her palacios task. Pt would like to come to [facility] pharmacy to get the Nicotine cartridges. [place] will notify Dr. Pelayo. Encounter Details Date Type Department Care Team ([facility] st Contact Info) Description 10/19/2022 Refill [facility] [address] [place], [place] [phone] Alaina Pelayo MD [address] [place] [address] Smoker Social History Tobacco Use Types Packs/Day [...] PM EST documented as of this encounter Miscellaneous Notes * Telephone Encounter - Asia Matthewspe - 10/25/2022 4:[address] Boswell task. Pt would like to come to [facility] pharmacy to get the Nicotine cartridges. [place] will notify Dr. Pelayo. documented in this encounter Plan of Treatment Upcoming Encounters Date Type Department Care Team (Late st Contact Info) Description 12/29/2024 9:15 AM EDT Office Visit [facility] [address] [place] [phone] Kacie Caceres MD [address] [place] [phone] 01/01/2025 9:30 AM EDT Office Visit [facility] [address] [place] [phone] Pam Pablo MD [address] [place] [address] [phone] documented as of this encounter Visit Diagnoses Diagnosis Smoker Tobacco use disorder documented in this encounter Care Teams Button Facing Machine Operator Relationship Specialty Start Date End Date Kacie Caceres MD [address] [place] [phone] PCP - General Family Medicine 01/27/21 Stacey Renae Coppersmith Helper 07/24/23 10/24/23 documented as of this encounter
--- OUTSIDE RECORDS SUMMARY | 2024-11-11 11:31 | XMS_ITS | Clinical Summary ---
Author Organization [employer] Address [address] [facility] [address] [place] [address] Care Team Providers Care Associate Professor Of Art Name Role Phone Kacie Caceres MD Primary Care Provide r Allergies Active Allergy Reactions Criticality Noted Date Comments Amoxicillin Angioedema 02/10/2021 Penicillin G 07/27/2021 Medications * This document contains information received from the source organization and may not represent a complete record from that organization. EPINEPHrine (EpiPen 2-Juma) 0.3 MG/0.3ML injection syringe Inject 0.3 mL into the shoulder, thigh, or buttocks. 1 Active apixaban (Eliquis) 5 MG tabletIndication s:Other acute pulmonary embolism without acute cor pulmonale (CMS/HCC) TAKE 1 TABLET (5 MG) BY MOUTH 2 TIMES DAILY 60 tablet 2 3 Active hydrOXYzine HCl (Atarax) 25 MG tabletIndication s:Scalp pruritus,Dermati tis Take 1 tablet (25 mg) by mouth every 6 (six) hours if needed for itching for up to 10 days. 30 tablet 3 Active Ventolin HFA 108 (90 Base) MCG/ACT inhaler INHALE 2 PUFFS EVERY 4 TO 6 HOURS NEEDED FOR SHORTNESS OF BREATH OR FOR WHEEZE 3 Active Symbicort 80-4.5 MCG/ACT inhaler Inhale 2 puffs every 12 (twelve) hours. 3 Active docusate sodium (Colace) 100 MG capsule TAKE 1 CAPSULE BY MOUTH TWO TIMES A DAY NEEDED FOR CONSTIPATION 3 Active Breo Ellipta 100-25 MCG/ACT aerosol powder Inhale 1 puff in the morning. 3 Active Blood Pressure Monitor kitIndications:E ssential hypertension Use as directed 3x/week 1 kit 3 Active nicotine (Nicoderm, Step 2) 14 MG/24HR patchIndications :Smoker PLACE 1 PATCH ON THE SKIN 1 TIME EACH DAY AT THE SAME TIME. 28 patch 4 Active nicotine (Nicotrol) 10 MG inhalerIndicatio ns:Smoker Inhale 1 puff if needed for smoking cessation. 42 each 3 4 Active omeprazole (PriLOSEC) [address] capsuleIndicatio ns:Epigastric pain TAKE 1 CAPSULE BY MOUTH EVERY DAY BEFORE BREAKFAST. DO NOT CRUSH OR CHEW. 90 capsule 1 4 Active thiamine (Vitamin B-1) 100 MG tablet Take 1 tablet by mouth Once per day. 4 Active Topamax 50 MG tablet Take 1 tablet by mouth Once per day. 4 Active amLODIPine (Norvasc) 5 MG tabletIndication s:Essential hypertension TAKE 1 TABLET BY MOUTH ONCE PER DAY. 90 tablet 1 4 Active Active Problems Problem Noted Date Diagnosed Date History of pulmonary embolism 10/30/2024 Chronic pain of right knee 09/17/2024 Assessment & Plan (10/30/2024 10:41 AM EST): XRAY order printed and given to patient Assessment & Plan (09/17/2024 2:42 PM EST): XRAY ordered Elevate knee rest and apply ice Acetaminophen PRN Knee brace prescription will be generated Unstable right knee 09/17/2024 Assessment & Plan (09/17/2024 2:42 PM EST): Knee brace prescription will be generated Uncomplicated opioid dependence 09/17/2024 Assessment & Plan (09/17/2024 2:43 PM EST): C/w therapist and legal recovery specialist C/w methadone program Moderate episode of recurrent major depressive d isorder 08/20/2024 PTSD (post-traumatic stress disorder) 08/20/2024 KRISTA (generalized anxiety disorder) 08/20/2024 Homeless 08/20/2024 UTI symptoms 08/19/2024 Assessment & Plan (08/19/2024 4:32 PM EST): UA and culture Ciprofloxacin 500mg BID Bilirubin in urine 08/19/2024 Assessment & Plan (08/19/2024 4:33 PM EST): KUB to r/o kidney stones Opioid dependence 08/19/2024 Alcoholic 08/19/2024 Assessment & Plan (09/17/2024 2:43 PM EST): Counseling done Blood in urine 08/19/2024 Unintentional weight loss 07/22/2024 Assessment & Plan (07/22/2024 11:14 AM EDT): GI referral for possible EGD I ordered today CT of chest and abdomen with and without contrast Labs ordered they where printed and given to patient Epigastric pain 07/17/2024 Assessment & Plan (10/30/2024 10:41 AM EST): I advise patient to avoid NSAIDs, spicy and acid food, I advise to eat at the same time every day, I advise to elevate the head of the bed and take medications as prescribe H pylori test printed and given to patient GI information given to patient for him to call for an appointment Assessment & Plan (09/17/2024 2:41 PM EST): I advise patient to avoid NSAIDs, spicy and acid food, I advise to eat at the same time every day, I advise to elevate the head of the bed and take medications as prescribe I will test for H pylori Assessment & Plan (07/20/2024 5:23 PM EDT): I advise patient to avoid NSAIDs, spicy and acid food, I advise to eat at the same time every day, I advise to elevate the head of the bed and take medications as prescribe Herpes zoster without complication 07/17/2024 History of cholecystectomy 10/01/2023 Assessment & Plan (10/01/2023 2:15 PM EST): This was done at [facility] in mid-July 2023 His abdomina wounds, including a seroma, have healed He is eating and going to the bathroom normally He is ready to return to work, note written to clear him Gentle whole foods diet advised Obstructive sleep apnea 09/30/2023 09/30/20 Generalized abdominal pain 09/02/2023 Assessment & Plan (07/22/2024 11:12 AM EDT): Patient already referred 3 times to GI, I will print referral and I will give it to patient I advise patient to avoid NSAIDs, spicy and acid food, I advise to eat at the same time every day, I advise to elevate the head of the bed and take medications as prescribe Assessment & Plan (09/02/2023 3:51 PM EST): I advise patient to avoid NSAIDs, spicy and acid food, I advise to eat at the same time every day, I advise to elevate the head of the bed and take medications as prescribe Prediabetes 09/02/2023 Assessment & Plan (07/20/2024 5:24 PM EDT): Today extensive discussion was done about life style modifications I advise healthy diet (low calorie) and cardiovascular exercise Assessment & Plan (09/02/2023 3:51 PM EST): Today extensive discussion was done about life style modifications I advise healthy diet (low calorie) and cardiovascular exercise Abdominal wall seroma 07/31/2023 Assessment & Plan (07/31/2023 8:25 PM EDT): ?sp recent CCY?, see 07/29/23 CT scan abd Order cbc with diff and esr to ro infection. Counseled to avoid manipulation , needs to fu with surgeon. Has appt on 08/07 at 8:40am ([address] [facility] [id number], [place], see ED note on 07/20/23) Pain of upper abdomen 07/31/2023 Assessment & Plan (07/31/2023 8:06 PM EDT): It could be related to seroma vs gastritis. FU labs and treat infection if any signs of it. Needs to fu with surgery. Start sucralfate tid ac meals+ hs Use Tylenol prn pain + Heat to affected area Improve constipation, no evidence of obstruction on recent CT scan. Scalp pruritus 06/13/2023 Dermatitis 06/13/2023 Open chest wound 05/23/2023 Assessment & Plan (05/23/2023 4:32 PM EDT): RTC 3 weeks Other pulmonary embolism without acute cor pulmo nale 05/23/2023 Assessment & Plan (09/02/2023 3:52 PM EST): Continue to follow with pulmonology Documents for work will be fill out Assessment & Plan (05/23/2023 4:31 PM EDT): Patient finish anticoagulant course (apixaban), he feels better back to his baseline Dyspnea on exertion 03/25/2023 Assessment & Plan (03/25/2023 2:59 PM EDT): Patient has h/o CHF and PE I will order echocardiogram I will refer patient to cardiology and pulmonary Extensive discussion about weigh reduction done today and also smoking cessation he went down to 5 cigarettes daily nutrition referral done, we will consider bariatric referral after cardiac nd pulmonary status is verified I am also extending his FMLA for 3 more months until he finish his apixaban course (patient will be on 6 months of anticoagulation in total in light of persistent symptoms) Acute pulmonary embolism without acute cor pulmo nale 01/02/2023 Assessment & Plan (01/02/2023 12:37 PM EDT): Continue Eliquis until at least 03/25/23. Discussed with pt regarding risk of bleeding and to apply pressure for at least 15 -20 minutes in case of trauma Pt to go to ED if he hits his head No evidence of bleeding at this time. WIll keep out of work for at least two months with acticvities at work that involve higher risk of trauma FU with PCP in 2 months. Concussion with no loss of consciousness 023 Cellulitis of chest wall 10/18/2022 Chronic congestive heart failure 10/18/2022 Essential hypertension 10/18/2022 Assessment & Plan (07/20/2024 5:24 PM EDT): - Aerobic exercise to reduce BP. Initial goal of 30 min walk 3-5x/week. Increase as tolerated. - low-sodium diet (goal: <2g/day) and heart healthy diet such as DASH to reduce BP and prevent ASCVD. - Home BP monitoring 1-2 x day with goal of <140/90. - Seek immediate medical attention for chest pain, palpitations, SOB, syncope, or sudden changes in mental status. - Do not change or discontinue current prescriptions without first consulting health care provider Assessment & Plan (10/01/2023 2:16 PM EST): Continue Amlodipine 5mg daily, depending on home BP numbers, may need to increase to 10mg - Aerobic exercise to reduce BP. Initial goal of 30 min walk 3-5x/week. Increase as tolerated. - low-sodium diet (goal: <2g/day) and heart healthy diet such as DASH to reduce BP and prevent ASCVD. - Home BP monitoring 1-2 x day with goal of <140/90. - Seek immediate medical attention for chest pain, palpitations, SOB, syncope, or sudden changes in mental status. - Do not change or discontinue current prescriptions without first consulting health care provider Assessment & Plan (09/02/2023 3:51 PM EST): - Aerobic exercise to reduce BP. Initial goal of 30 min walk 3-5x/week. Increase as tolerated. - low-sodium diet (goal: <2g/day) and heart healthy diet such as DASH to reduce BP and prevent ASCVD. - Home BP monitoring 1-2 x day with goal of <140/90. - Seek immediate medical attention for chest pain, palpitations, SOB, syncope, or sudden changes in mental status. - Do not change or discontinue current prescriptions without first consulting health care provider Assessment & Plan (07/31/2023 8:02 PM EDT): Uncontrolled, urine tox is also pos for cocaine. He denies using it. Counseled to avoid any recreational substance. Increase amlodipine to 5mg and fu with PCP in 1mo Assessment & Plan (06/13/2023 1:18 PM EDT): -I will star him on amlodipine 2.5mg daily - Aerobic exercise to reduce BP. Initial goal of 30 min walk 3-5x/week. Increase as tolerated. - low-sodium diet (goal: <2g/day) and heart healthy diet such as DASH to reduce BP and prevent ASCVD. - Home BP monitoring 1-2 x day with goal of <140/90. - Seek immediate medical attention for chest pain, palpitations, SOB, syncope, or sudden changes in mental status. - Do not change or discontinue current prescriptions without first consulting health care provider Assessment & Plan (03/25/2023 2:57 PM EDT): - Aerobic exercise to reduce BP. Initial goal of 30 min walk 3-5x/week. Increase as tolerated. - low-sodium diet (goal: <2g/day) and heart healthy diet such as DASH to reduce BP and prevent ASCVD. - Home BP monitoring 1-2 x day with goal of <140/90. - Seek immediate medical attention for chest pain, palpitations, SOB, syncope, or sudden changes in mental status. - Do not change or discontinue current prescriptions without first consulting health care provider Assessment & Plan (01/02/2023 11:26 AM EDT): BP is controlled, Pt has been off medication for longer than a year. Will order BP machine with large cuff due to pt body habitus to check BP 1-3 times per month FU with PCP Folliculitis 10/18/2022 Smoker 10/18/2022 Assessment & Plan (01/02/2023 12:38 PM EDT): Counseled to quit smoking Will prescribe nictorol inhaler Counseled weight reduction FU with PCP in 2 months Class 3 severe obesity due t o excess calories with serious comorbidity and body mass index (BMI) of 50.0 to 59.9 in adult 10/18/2022 Encounters * This document contains information received from the source organization and may not represent a complete record from that organization. Date Type Department Care Team Description 11/11/2024 Telephone [facility] [address] [place] [address] Kacie Caceres MD Order 11/10/2024 Patient Outreach [facility] [address] [place] [address] Kacie Caceres MD Care Coordination (Outreach) 10/30/2024 9:30 AM EST Office Visit [facility] [address] [place] [phone] Kacie Caceres MD Chronic congestive heart failure, unspecified heart failure type (CMS/HCC) (Primary Dx); Obstructive sleep apnea; History of pulmonary embolism; Dyspnea on exertion; Epigastric pain; Chronic pain of right knee 10/30/2024 Travel 10/29/2024 Telephone [facility] [address] [place] [phone] Noa Kelly MA Chart Prep 10/28/2024 Orders Only [facility] [address] [place] [phone] Kacie Caceres MD 10/28/2024 Telephone [facility] [address] [place] [address] Tesha Jolley RN Care Coordination ([facility] initial assessment/ enrollment) 10/28/2024 Travel 10/27/2024 Patient Outreach [facility] [address] [place] [address] Kacie Caceres MD Care Coordination (Outreach) 10/21/2024 Patient Outreach [facility] [address] [place] [address] Kacie Caceres MD Care Coordination (Outreach) 10/15/2024 Telephone [facility] [address] [place] [phone] Kacie Caceres MD No Show 10/12/2024 Patient Outreach [facility] [address] [place] [phone] Nancy Mcclendon, investigator claims Of Care (Tcm) 10/12/2024 Refill [facility] [address] [place] [phone] Kacie Caceres MD Essential hypertension 09/24/[address] [address] Noa Kelly [place] Durable Medical Equipment 09/17/2024 2:00 PM EST Telemedicine [address] [phone] Kacie Caceres MD Acute pain of right knee (Primary Dx); Epigastric pain; Unstable right knee; Uncomplicated opioid dependence (CMS/HCC); Alcoholic (CMS/HCC) 09/17/2024 Refill [facility] [address] [address] Kacie Caceres MD UTI symptoms 09/17/[address] [address] Noa Kelly [place] Durable Medical Equipment 09/17/2024 Travel 09/17/[address] [address] Anne Dickson RN HDF r/s 09/04/2024 Patient Outreach [address] [phone] Polo Mcclain 09/01/2024 Patient Outreach [address] [address] Kacie Caceres MD Transition Of Care (Tcm) (HDF scheduled) 08/20/2024 Patient Outreach [address] [phone] Vitaliy Romo 08/19/2024 2:20 PM EST Office Visit [facility] [address] [address] Kacie Caceres MD UTI symptoms (Primary Dx); Low back pain, unspecified back pain laterality, unspecified chronicity, unspecified whether sciatica present; Bilirubin in urine; Opioid dependence with opioid-induced disorder (CMS/HCC); Alcoholic (CMS/HCC); Hematuria, unspecified type 08/19/[address] [address] Claudia Soliz [place] 08/19/2024 Telephone [facility] [address] [place] [address] Kacie Caceres MD Hospital Follow-up 08/13/2024 Patient Outreach [facility] [address] [place] [address] Kacie Caceres MD Transition Of Care (Tcm) (HDF scheduled, SDOH was completed on 07/15/2024) 08/13/2024 Telephone [facility] [address] [place] [address] Kacie Caceres MD Hospital Follow-up 08/13/2024 Telephone [facility] [address] [place] [address] Kacie Caceres MD PRESLEY RECALL from Last 3 Months Immunizations Name Administration Dates Next Due Hep A / Hep B 10/12/2008,04/27/2008,03/03/2008 Hep B, adult 08/15/2001,02/28/2001 Influenza Whole 09/13/2010, 8,09/25/2007,08/26,09/09/2005 Influenza injectable quadriv alent preservative free 09/02/2023 Influenza, IIV3, injectable 07/28/2014, 4,09/23/2009 Influenza, seasonal, injecta ble, preservative free 07/22/2024 Pneumococcal Polysaccharide PPSV23 05/17/2008, Td (adult), unspecified 05/17/2008 Tdap 03/30/2018 Social History Tobacco Use Types Packs/Day Years [...] Don't know 08/13/2022 10 :38 AM EDT Last Filed Vital Signs Vital Sign Reading Time Taken Comments Blood Pressure 137/91 10/30/2024 9:26 AM EST Pulse 82 10/30/2024 9:26 AM EST Temperature 36.2 ??C (97.2 ??F) 10/30/2024 9:26 AM ES T Respiratory Rate 16 10/30/2024 9:26 AM EST Oxygen Saturation 96% 10/30/2024 9:26 AM EST Inhaled Oxygen Concentration - - Weight 156 kg (343 lb 3.2 oz) 10/30/2024 9:26 AM EST Height 172.7 cm (5' 8 ) 10/30/2024 9:26 AM EST Body Mass Index 52.18 10/30/2024 9:26 AM EST Plan of Treatment Upcoming Encounters Date Type Department Care Team (Late st Contact Info) Description 12/29/2024 9:15 AM EDT Office Visit [facility] [address], [place] [phone] Kacie Caceres MD [address] [place] [address] 01/01/2025 9:30 AM EDT Office Visit [facility] [address] [place], [place] [phone] Pam Pablo MD [address] [place] [address] Health Maintenance Due Date Last Done Comments Family Planning (PISQ) 1999 Hepatitis C Screening 2002 Pneumococcal Vaccine: Pediatrics (0 to 5 Years) and At-Risk Patients (6 to 49) Years) (2 of 2 - PCV) 05/17/2009 05/17/2008, 09/25/2007 COVID-19 Vaccine ( season) 2024 03/06/2021, 02/06/2021 Depression Monitoring (PHQ-9) 02/17/2025 08/20/2024, 08/20/2024 Diabetes: Hemoglobin A1C 07/17/2025 024, 09/02/2023, 01/27/2021 Depression Screening 08/20/2025 08/20/2024, 08/20/20 24 SDOH Screening 10/21/2025 10/21/2024 Alcohol/Substance Use Screening 10/30/2025 10/30/2024 Tobacco Screening 10/30/2025 10/30/2024 Lipid Panel 01/27/2026 01/27/2021 DTaP/Tdap/Td Vaccines (2 - Td or Tdap) 03/30/2028 03/30/2018, 05/17/2008 Zoster Vaccines (1 of 2) 2034 RSV Patients and Patients Aged 60 years or older (1 - 1-dose 75+ series) 2059 Hepatitis A Vaccines Aged Out 10/12/2008, 04/27/2008, 03/03/2008 No longer eligible based on patient's age to complete this topic Hepatitis B Vaccines Completed 10/12/2008, 04/27/2008, 03/03/2008, Additional history exists HIV Screening Completed 01/27/2021 Influenza Vaccine Completed 07/22/2024, , 07/28/2014, Additional history exists HIB Vaccines Aged Out No longer eligi ble based on patient's age to complete this topic HPV Vaccines Aged Out No longer eligi ble based on patient's age to complete this topic IPV Vaccines Aged Out No longer eligi ble based on patient's age to complete this topic Meningococcal Vaccine Aged Out No catia shania eligible based on patient's age to complete this topic RSV under 20 months Aged Out No longe r eligible based on patient's age to complete this topic Rotavirus Vaccines Aged Out No longer eligible based on patient's age to complete this topic Procedures Procedure Name Priority Date/Time Associated Diagnosis Comments POCT GLYCATED HEMOGLOBIN, TOTAL Routine 07/17/2024 2:43 PM EDT Prediabetes HIV 1/2 ANTIGEN/ANTIBODY, FOURTH GENERATION W/RFL Routine 01/27/2021 11:09 AM EDT LIPID PANEL, STANDARD Routine 01/27/2021 11:09 AM EDT from Last 3 Months or Most Recently Relevant to Health Maintenance Results * POCT HGB A1C (07/17/2024 2:43 PM EDT) Pathologist [facility] Hemoglobin A1C 5.7 4.0 - 6.0 % QC Media Lot # [id number] Lot# Expiration Date ,371 Blood 07/17/2024 2:43 PM EDT Kacie Hutchison MD POINT OF CARE TEST EN TER/EDIT ORDERABLES Final Result * HIV 1/2 ANTIGEN/ANTIBODY,FOURTH GENERATION W/RFL (01/27/2021 11:09 AM EDT) Pathologist [facility] HIV-1/2 ANTIGEN AND ANTIBODIES, 4TH GENERATION W/ REFLEX NON-REACT MADELINE NON-REACT MADELINE [facility] Comment: HIV-1 antigen and HIV-1/HIV-2 antibodies were not detected. There is no laboratory evidence of HIV infection. ?? PLEASE NOTE: This information has been disclosed to you from records whose confidentiality may be protected by state law. ??If your state requires such protection, then the state law prohibits you from making any further disclosure of the information without the specific written consent of the person to whom it pertains, or as otherwise permitted by law. A general authorization for the release of medical or other information is NOT sufficient for this purpose. ? For additional information please refer to http://[employer] [place]/faq/FCH806 (This link is being provided for informational/ educational purposes only.) ? The performance of this assay has not been clinically validated in patients less than 2 years old. ?? 01/27/2021 11:0 9 AM EDT Kacie Hutchison MD LAB BLOOD ORDERABLES Final Result [facility] [address] * (ABNORMAL) LIPID PANEL, STANDARD (01/27/2021 11:09 AM EDT) Chol/HDLC Ratio 4.9 <5.0 (calc) [facility] Cholesterol, Total 191 <200 mg/dL [facility] HDL Cholesterol 39(L) > OR = 40 mg/dL [facility] LDL Cholesterol 118(H) mg/dL (calc) [facility] Comment: Reference range: <100 ?? Desirable range <100 mg/dL for primary prevention; ?? <70 mg/dL for patients with CHD or diabetic patients ?? with > or = 2 CHD risk factors. ?? LDL-C is now calculated using the Jesse ?? calculation, which is a validated novel method providing ?? better accuracy than the Friedewald equation in the ?? estimation of LDL-C. ?? Mane OLSON et al. ARNULFO. 2013;310(19): 2126-5485 ?? (http://[employer]berg/faq/YYQ681) Non-HDL Cholesterol 152(H) <130 mg/dL (calc) [facility] Comment: For patients with diabetes plus 1 major ASCVD risk ?? factor, treating to a non-HDL-C goal of <100 mg/dL ?? (LDL-C of <70 mg/dL) is considered a therapeutic ?? option. Triglycerides 226(H) <150 mg/dL [facility] Comment: ?? If a non-fasting specimen was collected, consider repeat triglyceride testing on a fasting specimen if clinically indicated. ?? Marla et al. J. of Clin. Lipidol. 2015;9:129-169. ?? 01/27/2021 11:0 9 AM EDT us Kacie Hutchison MD LAB BLOOD ORDERABLES Final Result [facility] [address] from Last 3 Months or Most Recently Relevant to Health Maintenance Insurance [address] [place], [place] [id number] C3 Care Teams Associate Professor Of Art Relationship Specialty Start Date End Date Kacie Caceres MD [address] [place] [id number] PCP - General Family Medicine 01/27/21
--- OUTSIDE RECORDS SUMMARY | 2024-11-11 11:31 | XMS_ITS | Encounter Summary ---
Author Organization [facility] Address [address] [place] [address] Care Team Providers Care Contact Center Associate Name Role Phone Unavailable Primary Care Provider Unavailabl e Encounter Details Date Type Department Care Team (Late st Contact Info) Description 10/27/2024 / TELEPHONE [facility] [address] [place] [phone] Reed Smith, PMHNP [address] [place] [address] [place], [place] [phone] Social History Tobacco Use Types Packs/Day Years [...] on file documented as of this encounter Plan of Treatment Upcoming Encounters Date Type Department Care Team ([facility] st Contact Info) Description 11/24/2024 10:00 AM EST Behavioral Health Visit [facility] [address] [place] [phone] Reed Smith[facility] [address] [place] [address] [place] [phone] documented as of this encounter Visit Diagnoses Not on filedocumented in this encounter
--- OUTSIDE RECORDS SUMMARY | 2024-11-11 11:31 | XMS_ITS | Encounter Summary ---
Author Organization [employer] Address [address] 7 [place] [address] Care Team Providers Care Leadlighter Name Role Phone Kacie Caceres MD Primary Care Provide r Encounter Details Date Type Department Care Team (Late Contact Info) Description 12/26/2022 Telephone [facility] [address] [place] [address] [phone] Kacie Caceres MD [address] [place] [address] [phone] Social History Tobacco Use Types Packs/Day Years [...] Description 12/29/2024 9:15 AM EDT Office Visit [facility] [address] [place] [phone] Kacie Caceres MD [address] [place] [address] [phone] 01/01/2025 9:30 AM EDT Office Visit [facility] [address] [place] [address] [phone] Pam Pablo MD [address] [place] [phone] documented as of this encounter Visit Diagnoses Not on filedocumented in this encounter Care Teams Leadlighter Relationship Specialty Start Date End Date Kacie Caceres MD [address] [place] [phone] PCP - General Family Medicine 01/27/21 Stacey Renae Sandfill Operator Surface 07/24/23 10/24/23 documented as of this encounter
--- OUTSIDE RECORDS SUMMARY | 2024-11-11 11:31 | XMS_ITS | Encounter Summary ---
Author Organization [facility] Address [address] [place] [address] Care Team Providers Care Guest Services Associate Name Role Phone Unavailable Primary Care Provider Unavailabl e Reason for Visit * Reason Comments Behavioral Health Medication Management Encounter Details Date Type Department Care Team (Latest Contact Info) Description 10/27/2024 8:00 AM EST Behavioral Health Visit [facility] [address] [place] [phone] Reed Tan, HNP [address] [facility] [place] [phone] PTSD (post-traumatic stress disorder) (Primary Dx); Moderate [...] pure alcohol) family h/o alcoholism; drank 2022 bc it helped stomach pain Social Connections Answer [...] as of this encounter Progress Notes * Reed Tan, FABIEN - 10/27/2024 9:56 AM ESTAssociated Problem(s): KRISTA (generalized anxiety disorder) A: anxiety P: cont sertraline and increase to 100 mg po qam * FABIEN Chairez - 10/27/2024 9:55 AM ESTAssociated Problem(s): Moderate episode of recurrent major depressive disorder ([facility]) Plan: olanzapine 10 mg po qhs, sertraline 100 mg qam, * ZEB ChairezP - 10/27/2024 8:46 AM ESTAssociated Problem(s): PTSD (post-traumatic stress disorder) A: meets criteria for PTSD, remains symptomatic PLAN: increase olanzapine to 10 mg po qhs for mood, sleep; increase sertraline to 100 mg qam, referto therapy. assessment with Tesha Jolley RN 10/28/23. needs pcp appt, missed last visit. needs labs, TSH, vit DReal RN to message pcp. * Reed [facility] 10/27/2024 8:00 AM EST [facility] OFFICE VISIT Name: Lino Bradley : 1985 PCP: No primary care provider on file. ASSESSMENT AND PLAN Problem List Items Addressed This Visit Moderate episode of recurrent major depressive disorder ([facility]) Plan: olanzapine 10 mg po qhs, sertraline 100 mg qam, Relevant Medications OLANZapine (ZYPREXA) 10 mg tablet sertraline (ZOLOFT) 100 mg tablet KRISTA (generalized anxiety disorder) A: anxiety P: cont sertraline and increase to 100 mg po qam Relevant Medications sertraline (ZOLOFT) 100 mg tablet PTSD (post-traumatic stress disorder) - Primary A: meets criteria for PTSD, remains symptomatic PLAN: increase olanzapine to 10 mg po qhs for mood, sleep; increase sertraline to 100 mg qam, referto therapy. assessment with Tesha Jolley RN 10/28/23. needs pcp appt, missed last visit. needs labs, TSH, vit D. RN to message pcp. Relevant Medications OLANZapine (ZYPREXA) 10 mg tablet sertraline (ZOLOFT) 100 mg tablet Follow-up: Return in about 2 weeks (around 11/10/2024). REED TAN, [facility] 10/27/2024 8:04 AM EST REASON FOR VISIT Chief Complaint Patient presents with Behavioral Health Medication Management HPI/ROS Last visit 10/02/24. Not really any better. Sxs over the course of several years. Racing thoughts at night, anxiety, delayed sleep onset. No naps, cup coffee in morning [this is new]. Up for days, then sleeps couple of hours. Sometimes feels over energized, hard time thinking straight. Can last all day, never lasts more than 2 consecutive days. Feels nervous during these periods. Not really depressed or down. Heart pounding, sweating, isolative at home. Poor appetite. Lost weight [weighs 300 lbs, lost about 200 lbs over 1 year]. Nausea after eating. Staying at [facility], in a bed. Recent dental work. H/o trazodone [2017, did not like], clonidine [ineffective], remeron [ineffective], clonazepam [2017], melatonin, benadryl, hydroxyzine ineffective. Risperdal- ineffective. Seroquel- arms buzz. jayde Gonzalez- ineffective. Sleep study- had sleep apnea but does not use cpap. Feels it was ineffective. Also, has lost a lot of weight and may not need anymore. 10/02 rozerem, olanzapine 7.5 mg qhs poor effect. Increase sertraline 100 mg qam. DC rozerem, ineffective. Increase olanzapine 10 mg po qhs. PCP- needs appt. [facility] Department Supervisor- yes, in [place]. Needs appt to f/u on sleep apnea. Appt. for initial assessment scheduled for 10/28/24 @ 10:00 AM. \ CHW Jacqueline Galarza No subst use. Occ cannabis but intensifies racing htoughts. PHQ No data to display Review of Systems Psychiatric/Behavioral: Positive for dysphoric mood and sleep disturbance. Negative for decreased concentration, hallucinations, self-injury and suicidal ideas. The patient is nervous/anxious. The patient is not hyperactive. VITALS: There were no vitals filed for this visit. Physical Exam Psychiatric: Attention and Perception: Attention and perception normal. Mood and Affect: Mood is anxious and depressed. Speech: Speech normal. He is communicative. Behavior: Behavior normal. Behavior is cooperative. Thought Content: Thought content normal. Cognition and Memory: Cognition and memory normal. Judgment: Judgment normal. Visit conducted via Telehealth with video.. Telehealth Provided Other than in Patient's Home. TELEMEDICINE ATTESTATION I verified [...] as otherwise needed. . FABIEN DEL [place]O 10/27/2024 documented in this encounter Plan of Treatment Upcoming Encounters Date Type Department Care Team ([facility] st Contact Info) Description 11/24/2024 10:00 AM EST Behavioral Health Visit [facility] [address] [place] [phone] Reed Tan PMHNP [address] [facility] [place] [phone] documented as of this encounter Visit Diagnoses Diagnosis PTSD (post-traumatic stress disorder)- Primary Posttraumatic stress disorder Moderate episode of recurrent major depressive disorder (HCC-CMS) KRISTA (generalized anxiety disorder) Generalized anxiety disorder documented in this encounter
--- OUTSIDE RECORDS SUMMARY | 2024-11-11 11:31 | XMS_ITS | Encounter Summary ---
Author Organization [employer] Address [address] [facility] 7t [place] [address] Care Team Providers Care Ladies' Hat Trimmer Name Role Phone Kacie Caceres MD Primary Care Provide r Reason for Visit * Reason Comments Med Refill Encounter Details Date Type Department Care Team ([facility] st Contact Info) Description 09/17/2024 Refill [facility] [address] [place], [place] [phone] Kacie Caceres MD [address] [place], [place] [phone] UTI symptoms Social History Tobacco Use Types Packs/Day Years [...] 9:15 AM EDT Office Visit [facility] MED[facility] [address] [place] [phone] Kacie Caceres MD [address] [place] [phone] 01/01/2025 9:30 AM EDT Office Visit [facility] [address] [place] [phone] Pam Pablo MD [address] [place] [phone] documented as of this encounter Visit Diagnoses Diagnosis UTI symptoms documented in this encounter Additional Health Concerns Assessment Noted Time PHQ-9 Depression Total Score: 18 024 8:12 AM EST documented as of this encounter Care Teams Ladies' Hat Trimmer Relationship Specialty Start Date End Date Kacie Caceres MD [address] [place] [phone] PCP - General Family Medicine 01/27/21 documented as of this encounter
--- OUTSIDE RECORDS SUMMARY | 2024-11-11 11:31 | XMS_ITS | Encounter Summary ---
Author Organization [employer] Address [address] [facility] 7t [place] [address] Care Team Providers Care Pairer Odds Name Role Phone Kacie Caceres MD Primary Care Provide r Encounter Details Date Type Department Care Team (Latest Contact Info) Description 10/28/2024 Travel Social History Tobacco Use Types Packs/Day [...] Description 12/29/2024 9:15 AM EDT Office Visit [facility] [address] [place] [phone] Kacie Caceres MD [address] [place] [address] [phone] 01/01/2025 9:30 AM EDT Office Visit [facility] [address] [place] [phone] Pam Pablo MD [address] [place] [phone] documented as of this encounter Visit Diagnoses Not on filedocumented in this encounter Additional Health Concerns Assessment Noted Time PHQ-9 Depression Total Score: 18 024 8:12 AM EST documented as of this encounter Care Teams Pairer Odds Relationship Specialty Start Date End Date Kacie Caceres MD [address] [place] [address] [phone] PCP - General Family Medicine 01/27/21 documented as of this encounter
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
--- OUTSIDE RECORDS SUMMARY | 2024-11-11 11:32 | XMS_ITS | Encounter Summary ---
Author Organization [employer] Address [address] [facility] 7t [place] [address] Care Team Providers Care Order Picker Name Role Phone Kacie Caceres MD Primary Care Provide r Reason for Visit * Reason Onset Date Comments Chart Prep 10/29/2024 Encounter Details Date Type Department Care Team (Late st Contact Info) Description 10/29/2024 Telephone [facility] [address] [place] [address] Noa Kelly MA Chart Prep Social History Tobacco Use Types Packs/Day Years [...] encounter Miscellaneous Notes * Telephone Encounter - Noa Kelly MA - 10/29/2024 9:33 AM EST Chart Prep Labs: done Images: done Vaccines due: yes Referrals: Ask patient if he went to GI . Screenings: Alcohol/Substance Use Screening Overdue care gaps: Sbirt documented in this encounter Plan of Treatment Upcoming Encounters Date Type Department Care Team (Late st Contact Info) Description 12/29/2024 9:15 AM EDT Office Visit [facility] MEDICINE [address] [place] [phone] Kacie Caceres MD [address] [place] [phone] 01/01/2025 9:30 AM EDT Office Visit [facility] MED[facility]INE [address] [place] [address] [phone] Pam Pablo MD [address] [place] [address] [phone] documented as of this encounter Visit Diagnoses Not on filedocumented in this encounter Additional Health Concerns Assessment Noted Time PHQ-9 Depression Total Score: 18 024 8:12 AM EST documented as of this encounter Care Teams Order Picker Relationship Specialty Start Date End Date Kacie Caceres MD [address] [place] [phone] PCP - General Family Medicine 01/27/21 documented as of this encounter
--- OUTSIDE RECORDS SUMMARY | 2024-11-11 11:32 | XMS_ITS | Encounter Summary ---
Author Organization [employer] Address [address] [facility] 7 [place] [address] Care Team Providers Care Wheel Roller Name Role Phone Kacie Caceres MD Primary Care Provide r Reason for Visit * Reason Onset Date Comments No Show 10/15/2024 Encounter Details Date Type Department Care Team ([facility] st Contact Info) Description 10/15/2024 Telephone [facility]INE 230 [place], [place] [phone] Kacie Caceres MD [address] [place], [place] [phone] No Show Social History Tobacco Use Types Packs/Day Years [...] encounter Miscellaneous Notes * Telephone Encounter - Maddy Waggoner - 10/15/2024 11:26 AM EST Pt no showed to appt on 10/15/24 documented in this encounter Plan of Treatment Upcoming Encounters Date Type Department Care Team (Late st Contact Info) Description 12/29/2024 9:15 AM EDT Office Visit [facility] MEDICINE [address] [place] [phone] Kacie Caceres MD [address] [place] [phone] 01/01/2025 9:30 AM EDT Office Visit [facility] MED[facility] [address] [place] [address] [phone] Pam Pablo MD [address] [place] [address] [phone] documented as of this encounter Visit Diagnoses Not on filedocumented in this encounter Additional Health Concerns Assessment Noted Time PHQ-9 Depression Total Score: 18 024 8:12 AM EST documented as of this encounter Care Teams Wheel Roller Relationship Specialty Start Date End Date Kacie Caceres MD [address] [place] [phone] PCP - General Family Medicine 01/27/21 documented as of this encounter
--- OUTSIDE RECORDS SUMMARY | 2024-11-11 11:32 | XMS_ITS | Encounter Summary ---
Author Organization [employer] Address [address] [facility] 7t [place] [address] Care Team Providers Care Director Intelligence Analysis Programs Name Role Phone Kacie Caceres MD Primary Care Provide r Encounter Details Date Type Department Care Team (Late st Contact Info) Description 10/28/2024 Orders Only [facility] MED[facility]INE [address] [place], [place] [phone] Kacie Caceres MD [address] [place], [place] [phone] Social History Tobacco Use Types Packs/Day Years [...] 9:15 AM EDT Office Visit [facility] [address] [place] [phone] Kacie Caceres MD [address] [place] [address] 01/01/2025 9:30 AM EDT Office Visit [facility] [address] [place] [phone] Pam Pablo MD [address] [place] [phone] documented as of this encounter Visit Diagnoses Not on filedocumented in this encounter Additional Health Concerns Assessment Noted Time PHQ-9 Depression Total Score: 18 024 8:12 AM EST documented as of this encounter Care Teams Director Intelligence Analysis Programs Relationship Specialty Start Date End Date Kacie Caceres MD [address] [place] [address] [phone] PCP - General Family Medicine 01/27/21 documented as of this encounter
--- OUTSIDE RECORDS SUMMARY | 2024-11-11 11:32 | XMS_ITS | Encounter Summary ---
Author Organization [employer] Address [address] [facility] 7t [place] [address] Care Team Providers Care Extraction Supervisor Name Role Phone Kacie Caceres MD Primary Care Provide r Reason for Referral * Consultation (Routine) - Authorized Specialty Diagnoses / Procedures Referred By Contac t Referred To Contact Pulmonary Disease Diagnoses Obstructive sleep apnea History of pulmonary embolism Dyspnea on exertion Kacie Caceres MD [address] [place] [address] Phone: tel: fax: [facility] Pulmonary [address] 1[address] Floor [place], [place] Phone: tel: fax: Referral ID Status Reason Start Date Expiration Date Visits Requested Visits Authorized [id number] Authorized Specialty Services Required 10/30/2024 10/30/2025 6 6 * Consultation (Routine) - Authorized Specialty Diagnoses / Procedures Referred By Contbeverly t Referred To Contact Cardiology Diagnoses Chronic congestive heart failure, unspecified heart failure type (CMS/HCC) Kacie Caceres MD [address] [place] [address] Phone: tel: fax: [facility] Referral ID Status Reason Start Date Expiration Date Visits Requested Visits Authorized [id number] Authorized Specialty Services Required 10/30/2024 10/30/2025 6 6 Encounter Details Date Type Department Care Team (Late st Contact Info) Description 10/30/2024 9:30 AM EST Office Visit [facility] [address] [place] [address] Kacie Caceres MD [address] [place] [address] Chronic congestive heart failure, unspecified heart failure type (CMS/HCC) (Primary Dx); Obstructive sleep apnea; History of pulmonary embolism; Dyspnea on exertion; Epigastric pain; Chronic pain of right knee Social History Tobacco Use Types Packs/Day Years [...] t he electric, gas, oil or water [employer] [facility] threatened to shut off services in your [...] AM EDT documented as of this encounter Last Filed Vital Signs Vital Sign Reading [...] Mass Index 52.18 10/30/2024 9:26 AM EST documented in this encounter Progress Notes * Kacie Hutchison MD - 10/30/2024 9:30 AM EST SUBJECTIVE: Lino Bradley is a 39 y.o. year old male who presents for Chronic Disease Management . 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 Social History Social History Narrative Not on file Patient Active Problem List Diagnosis Cellulitis of chest wall Chronic congestive heart failure (CMS/HCC) Essential hypertension Folliculitis Smoker Class 3 severe obesity due to excess calories with serious comorbidity and body mass index (BMI) of50.0 to 59.9 in adult (CMS/HCC) Concussion with no loss of consciousness Acute pulmonary embolism without acute cor pulmonale (CMS/HCC) Dyspnea on exertion Open chest wound Other pulmonary embolism without acute cor pulmonale (CMS/HCC) Scalp pruritus Dermatitis Abdominal wall seroma Pain of upper abdomen Generalized abdominal pain Prediabetes Obstructive sleep apnea History of cholecystectomy Epigastric pain Herpes zoster without complication Unintentional weight loss UTI symptoms Bilirubin in urine Opioid dependence (CMS/HCC) Alcoholic (CMS/HCC) Blood in urine Moderate episode of recurrent major depressive disorder (CMS/HCC) PTSD (post-traumatic stress disorder) KRISTA (generalized anxiety disorder) Homeless Chronic pain of right knee Unstable right knee Uncomplicated opioid dependence (CMS/HCC) History of pulmonary embolism No family history on file. Review of Systems Constitutional: Negative. HENT: Negative. Respiratory: Positive for chest tightness and shortness of breath. Negative for apnea, cough, choking, wheezing and stridor. Cardiovascular: Negative. Gastrointestinal: Positive for abdominal distention and abdominal pain. Negative for anal bleeding,blood in stool, constipation, diarrhea, nausea, rectal pain and vomiting. OBJECTIVE: Vitals: 10/30/24 0926 BP: (!) 137/91 BP Location: Left arm Patient Position: Sitting BP Cuff Size: Large adult Pulse: 82 Resp: 16 Temp: 97.2 ??F (36.2 ??C) TempSrc: Oral SpO2: 96% Weight: 343 lb 3.2 oz (156 kg) Height: 5' 8 (1.727 m) Physical Exam Cardiovascular: Rate and Rhythm: Normal rate and regular rhythm. Pulmonary: Effort: Pulmonary effort is normal. Breath sounds: Normal breath sounds. Abdominal: General: Abdomen is flat. Palpations: Abdomen is soft. Musculoskeletal: Right lower leg: No edema. Left lower leg: No edema. Neurological: Mental Status: He is alert. Follow Up: Follow up in about 3 months (around 01/28/2025) for chronic conditions . Current Outpatient Medications on File Prior to Visit Medication Sig Dispense Refill amLODIPine (Norvasc) 5 MG tablet TAKE 1 TABLET BY MOUTH ONCE PER DAY. 90 tablet 1 apixaban (Eliquis) 5 MG tablet TAKE 1 TABLET (5 MG) BY MOUTH 2 TIMES DAILY 60 tablet 2 Blood Pressure Monitor kit Use as directed 3x/week 1 kit 0 Breo Ellipta 100-25 MCG/ACT aerosol powder Inhale 1 puff in the morning. docusate sodium (Colace) 100 MG capsule TAKE 1 CAPSULE BY MOUTH TWO TIMES A DAY NEEDED FOR CONSTIPATION EPINEPHrine (EpiPen 2-Juma) 0.3 MG/0.3ML injection syringe Inject 0.3 mL into the shoulder, thigh, or buttocks. hydrOXYzine HCl (Atarax) 25 MG tablet Take 1 tablet (25 mg) by mouth every 6 (six) hours if needed for itching for up to 10 days. 30 tablet 0 nicotine (Nicoderm, Step 2) 14 MG/24HR patch PLACE 1 PATCH ON THE SKIN 1 TIME EACH DAY AT THE SAME TIME. 28 patch 0 nicotine (Nicotrol) 10 MG inhaler Inhale 1 puff if needed for smoking cessation. 42 each 3 omeprazole (PriLOSEC) [address] capsule TAKE 1 CAPSULE BY MOUTH EVERY DAY BEFORE BREAKFAST. DO NOT CRUSH OR CHEW. 90 capsule 1 Symbicort 80-4.5 MCG/ACT inhaler Inhale 2 puffs every 12 (twelve) hours. thiamine (Vitamin B-1) 100 MG tablet Take 1 tablet by mouth Once per day. Topamax 50 MG tablet Take 1 tablet by mouth Once per day. Ventolin HFA 108 (90 Base) MCG/ACT inhaler INHALE 2 PUFFS EVERY 4 TO 6 HOURS NEEDED FOR SHORTNESS OF BREATH OR FOR WHEEZE No current facility-administered medications on file prior to visit. Problem List Items Addressed This Visit Chronic congestive heart failure (CMS/HCC) - Primary Relevant Orders Referral to Cardiology Obstructive sleep apnea Relevant Orders Referral to Pulmonology History of pulmonary embolism Relevant Orders Referral to Pulmonology Dyspnea on exertion Relevant Orders Referral to Pulmonology Epigastric pain I advise patient to avoid NSAIDs, spicy and acid food, I advise to eat at the same time every day, I advise to elevate the head of the bed and take medications as prescribe H pylori test printed and given to patient GI information given to patient for him to call for an appointment Chronic pain of right knee XRAY order printed and given to patient documented in this encounter Miscellaneous Notes * Assessment & Plan Note - Kacie Hutchison MD - 10/30/2024 10:41 AM EST Associated Problem(s): Epigastric pain I advise patient to avoid NSAIDs, spicy and acid food, I advise to eat at the same time every day, I advise to elevate the head of the bed and take medications as prescribe H pylori test printed and given to patient GI information given to patient for him to call for an appointment * Assessment & Plan Note - Kacie Hutchison MD - 10/30/2024 10:41 AM EST Associated Problem(s): Chronic pain of right knee XRAY order printed and given to patient documented in this encounter Plan of Treatment Upcoming Encounters Date Type Department Care Team (Late st Contact Info) Description 12/29/2024 9:15 AM EDT Office Visit [facility] [address] [place] [address] Kacie Caceres MD [address] [place], [place] [phone] 01/01/2025 9:30 AM EDT Office Visit [facility] [address] [place] [address] Pam Pablo MD [address] [place], [place] [phone] Scheduled Referrals Name Type Priority Associated Diagnoses Orde r Schedule Referral to Cardiology Outpatient Referral Routine Chronic congestive heart failure, unspecified heart failure type (CMS/HCC) Expected: 10/30/2024 (Approximate), Expires: 10/30/2025 Referral to Pulmonology Outpatient Referral Routine Obstructive sleep apnea History of pulmonary embolism Dyspnea on exertion Expected: 10/30/2024 (Approximate), Expires: 10/30/2025 documented as of this encounter Visit Diagnoses Diagnosis Chronic congestive heart failure, unspecified heart failure type (CMS/HCC)- Primary Obstructive sleep apnea Obstructive sleep apnea (adult) (pediatric) History of pulmonary embolism Personal history of venous thrombosis and embolism Dyspnea on exertion Other dyspnea and respiratory abnormality Epigastric pain Abdominal pain, epigastric Chronic pain of right knee documented in this encounter Additional Health Concerns Assessment Noted Time PHQ-9 Depression Total Score: 18 024 8:12 AM EST documented as of this encounter Care Teams Extraction Supervisor Relationship Specialty Start Date End Date Kacie Caceres MD [address] [place] [phone] PCP - General Family Medicine 01/27/21 documented as of this encounter
--- OUTSIDE RECORDS SUMMARY | 2024-11-11 11:32 | XMS_ITS | Encounter Summary ---
Author Organization [employer] [facility] Address [address] [facility] 7 [place] [address] Care Team Providers Care Animal Sitter Name Role Phone Kacie Caceres MD Primary Care Provide r Reason for Visit * Reason Comments Transition Of Care (Tcm) Encounter Details Date Type Department Care Team ([facility] st Contact Info) Description 10/12/2024 Patient Outreach [facility] [address] [place] [address] Nancy Mcclendon, RN [address] [place] [address] Transition Of Care (Tcm) Social History Tobacco Use Types Packs/Day Years [...] as of this encounter Progress Notes * Nancy Mcclendon RN - 10/12/2024 8:30 AM EST 10/12/24 0831 Hospital Discharges and Admission for [facility] Type of Visit Emergency Department Date of Admission/Visit 10/11/24 Date of Discharge 10/11/24 Facility [facility] Diagnosis CP Disposition Discharged Home * Georgie Suh RN - 10/12/2024 8:30 AM EST Transition of Care Note Lino is going through a recent transition of care. Hospital Discharges and Admission for [facility] Type of Visit: Emergency Department Date of Admission/Visit: 10/11/24 Date of Discharge: 10/11/24 Facility: [facility] Diagnosis: CP Disposition: Discharged Home Follow-Up Actions Follow-Up Needed: Provider appointment Follow-Up Outcome: Spoke to Patient Initial Contact Date: 09/01/24 Patient has follow up appointment with PCP. The full discharge summary is available on [facility]. Recent Visits Date Type Provider Dept 08/19/24 Office Visit Kacie Hutchison MD [facility] 07/22/24 Office Visit Kacie Hutchison MD [facility] 07/17/24 Office Visit Kacie Hutchison MD [facility] 09/30/23 Office Visit Alaina Pelayo MD [facility] 09/02/23 Office Visit Kacie Hutchison MD [facility] 07/31/23 Office Visit Vannesa Lama MD [facility] 06/13/23 Office Visit Kacie Hutchison MD [facility] 05/23/23 Office Visit Kacie Hutchison MD [facility] Showing recent visits within past 540 days with a meds authorizing provider and meeting all other requirements Future Appointments Date Type Provider Dept 10/15/24 Appointment Kacie Hutchison MD [facility] Showing future appointments within next 150 days with a meds authorizing provider and meeting all other requirements documented in this encounter Plan of Treatment Upcoming Encounters Date Type Department Care Team (Late st Contact Info) Description 12/29/2024 9:15 AM EDT Office Visit [address] [address] Kacie Caceres MD [address] [place] [address] 01/01/2025 9:30 AM EDT Office Visit [address] [phone] Pam Pablo MD [address] [place] [phone] documented as of this encounter Visit Diagnoses Not on filedocumented in this encounter Additional Health Concerns Assessment Noted Time PHQ-9 Depression Total Score: 18 024 8:12 AM EST documented as of this encounter Care Teams Animal Sitter Relationship Specialty Start Date End Date Kacie Caceres MD [address] [place] [address] [phone] PCP - General Family Medicine 01/27/21 documented as of this encounter
--- OUTSIDE RECORDS SUMMARY | 2024-11-11 11:32 | XMS_ITS | Encounter Summary ---
Author Organization [employer] Address [address] [facility] 7t [place] [address] Care Team Providers Care Home Health Scheduler Name Role Phone Kacie Caceres MD Primary Care Provide r Reason for Visit * Reason Comments Med Refill Encounter Details Date Type Department Care Team ([facility] st Contact Info) Description 10/12/2024 Refill [facility] [address] [place], [place] [phone] Kacie Caceres MD [address] [place], [place] [phone] Essential hypertension Social History Tobacco Use Types Packs/Day Years [...] Description 12/29/2024 9:15 AM EDT Office Visit [facility] [address] [place] [phone] Kacie Caceres MD [address] [place] [address] 01/01/2025 9:30 AM EDT Office Visit [facility] [address] [place] [phone] Pam Pablo MD [address] [place] [address] documented as of this encounter Visit Diagnoses Diagnosis Essential hypertension Unspecified essential hypertension documented in this encounter Additional Health Concerns Assessment Noted Time PHQ-9 Depression Total Score: 18 024 8:12 AM EST documented as of this encounter Care Teams Home Health Scheduler Relationship Specialty Start Date End Date Kacie Caceres MD [address] [place] [address] PCP - General Family Medicine 01/27/21 documented as of this encounter
--- OUTSIDE RECORDS SUMMARY | 2024-11-11 11:33 | XMS_ITS | Encounter Summary ---
Author Organization [facility] [facility] Address [address] [place] [address] 7 [place] [address] Care Team Providers Care Pilates Instructor Name Role Phone Kacie Caceres MD Primary Care Provide r Reason for Visit * Reason Comments Med Refill Encounter Details Date Type Department Care Team (Late st Contact Info) Description 07/06/2023 Refill [facility] [address] [place] [address] [phone] Kacie Caceres MD [address] [place], [place] [phone] Open wound of right chest wall, initial encounter; Scalp pruritus; Dermatitis Social History Tobacco Use Types Packs/Day Years [...] Description 12/29/2024 9:15 AM EDT Office Visit [facility] [address] [place] [phone] Kacie Caceres MD [address] [place], [place] [phone] 01/01/2025 9:30 AM EDT Office Visit [facility] [address] [place] [address] aPm Pablo MD [address] [place], [place] [phone] documented as of this encounter Visit Diagnoses Diagnosis Open wound of right chest wall, initial encounter Scalp pruritus Dermatitis Contact dermatitis and other eczema, due to unspecified cause documented in this encounter Care Teams Pilates Instructor Relationship Specialty Start Date End Date Kacie Caceres MD [address] [place], [place] [phone] PCP - General Family Medicine 01/27/21 Stacey Renae Web Merchandiser 07/24/23 10/24/23 documented as of this encounter
--- OUTSIDE RECORDS SUMMARY | 2024-11-11 11:33 | XMS_ITS | Clinical Summary ---
Author Organization [facility] Address [address] [place] [address] Care Team Providers Care Counter Pocket Sewer Name Role Phone Evy Maria MD Primary Care Provider [phone] Allergies No known active allergies Medications No known medications Social History Tobacco Use Types Packs/Day Years Used Date Smoking Tobacco: Every Day Cigarettes Smokeless Tobacco: Never Alcohol Use Standard Drinks/Week Comments Yes 0 (1 standard drink = 0.6 oz pur e alcohol) rarely Sex and Gender Information Value Date Recorded Sex Assigned at Male 09/22/2018 7:46 PM EST Gender Identity Not on file Sexual Orientation Not on file Last Filed Vital Signs Vital Sign Reading Time Taken Comments Blood Pressure 117/72 09/23/2018 9:35 AM EST Pulse 62 09/23/2018 9:35 AM EST Temperature 36.8 ??C (98.3 ??F) 09/23/2018 9:35 AM ES T Respiratory Rate 17 09/23/2018 9:35 AM EST Oxygen Saturation 99% 09/23/2018 9:35 AM EST Inhaled Oxygen Concentration - - Weight 183.9 kg (405 lb 6.8 oz) 09/22/2018 6:47 PM EST Height - - Body Mass Index - - Plan of Treatment Not on file Care Teams Counter Pocket Sewer Relationship Specialty Start Date End Date Evy Maria MD [address] [place] [phone] PCP - General Internal Medicine 09/22/18
--- OUTSIDE RECORDS SUMMARY | 2024-11-11 11:33 | XMS_ITS | Encounter Summary ---
Author Organization [employer] Address [address] [facility] 7 [place] [address] Care Team Providers Care Network Support Technician Name Role Phone Kacie Caceres MD Primary Care Provide r Reason for Visit * Reason Onset Date Comments Hospital Follow-up 08/13/2024 Encounter Details Date Type Department Care Team ([facility] st Contact Info) Description 08/13/2024 Telephone [facility] [address] [place], [place] [phone] Kacie Caceres MD [address] [place], [place] [phone] Hospital Follow-up Social History Tobacco Use Types Packs/Day Years Used Date Smoking Tobacco: Every Day Cigarettes Passive Smoke Exposure: Current Smokeless Tobacco: Never Alcohol Use Standard Drinks/Week Comments Never 0 (1 standard drink = 0.6 oz pur e alcohol) Depression Answer Date Recorded Patient Health Questionnaire-9 Score 0 07/22/2024 Patient Health Questionnaire-9 Score 0 07/22/2024 Last PHQ-9: Questionnaire Data Not on file 1 Housing Stability Answer Date Recorded What is [...] Date Recorded Patient Health Questionnaire-2 Score 0 07/22/2024 Internet Access Answer Date Recorded Internet Access [...] encounter Miscellaneous Notes * Telephone Encounter - Juice Bishop - 08/13/2024 11:11 AM EDT Tc from pt requesting a HDF appt. Hospital: [facility] Date of admission: 08/06/24 Discharge date: 08/12/24 Diagnosed: Gastric Polyp documented in this encounter Plan of Treatment Upcoming Encounters Date Type Department Care Team (Late st Contact Info) Description 12/29/2024 9:15 AM EDT Office Visit [facility] [address] [place] [phone] Kacie Caceres MD [address] [place] [phone] 01/01/2025 9:30 AM EDT Office Visit [facility] [address] [place] [phone] Pam Pablo MD [address] [place] [phone] documented as of this encounter Visit Diagnoses Not on filedocumented in this encounter Additional Health Concerns Assessment Noted Time PHQ-9 Depression Total Score: 0 07/22/20 9:18 AM EDT documented as of this encounter Care Teams Network Support Technician Relationship Specialty Start Date End Date Kacie Caceres MD [address] [place] [address] PCP - General Family Medicine 01/27/21 documented as of this encounter
--- OUTSIDE RECORDS SUMMARY | 2024-11-11 11:33 | XMS_ITS | Encounter Summary ---
Author Organization [employer] Address [address] [facility] 7 [place] [address] Care Team Providers Care Food Expeditor Name Role Phone Kacie Caceres MD Primary Care Provide r Reason for Visit * Reason Onset Date Comments Appointment Request 08/27/2023 Encounter Details Date Type Department Care Team ([facility] st Contact Info) Description 08/27/2023 Telephone [facility] [address] [place], [place] [phone] Kacie Caceres MD [address] [place], [place] [phone] Appointment Request Social History Tobacco Use Types [...] encounter Miscellaneous Notes * Telephone Encounter - [place] - 08/27/2023 11:41 AM EST Tc from pt requesting to r/s to follow up scheduled for 08/23/23, Title Coordinator attempted to r/s however zero availability. Pt stated need appt due to paperwork needing to be filled out Per Yashira Sales RN unable to finish forms. Please contact at [phone] documented in this encounter Plan of Treatment Upcoming Encounters Date Type Department Care Team (Late st Contact Info) Description 12/29/2024 9:15 AM EDT Office Visit [facility] [address] [place] [phone] Kacie Caceres MD [address] [place] [address] 01/01/2025 9:30 AM EDT Office Visit [facility] [address] [place] [phone] Pam Pablo MD [address] [place] [phone] documented as of this encounter Visit Diagnoses Not on filedocumented in this encounter Care Teams Food Expeditor Relationship Specialty Start Date End Date Kacie Caceres MD [address] [place] [address] PCP - General Family Medicine 01/27/21 Stacey Renae Surgical Dental Assistant 07/24/23 10/24/23 documented as of this encounter
--- OUTSIDE RECORDS SUMMARY | 2024-11-11 11:33 | XMS_ITS | Encounter Summary ---
Author Organization [employer] Address [address] [facility] 7t [place] [address] Care Team Providers Care Chief Deputy Sheriff Name Role Phone Kacie Caceres MD Primary Care Provide r Reason for Visit * Reason Comments Med Refill Encounter Details Date Type Department Care Team ([facility] st Contact Info) Description 09/08/2023 Refill [facility] [address] [place], [place] [phone] Kacie Caceres MD [address] [place], [place] [phone] Essential hypertension Social History Tobacco Use Types Packs/Day Years Used Date Smoking Tobacco: Every Day Cigarettes Passive Smoke Exposure: Current Smokeless Tobacco: Never Alcohol Use Standard Drinks/Week Comments Never 0 (1 standard drink = 0.6 oz pur e alcohol) PHQ-2 Answer Date Recorded Patient Health Questionnaire-2 Score 0 01/02/2023 Housing Stability Answer Date Recorded What is [...] from getting things needed for daily living? Yes, it has kept me from medical appointments or getting medications. 07/23/2023 Utilities Answer Date Recorded In the past 12 months, has t he electric, gas, oil or water [employer] threatened to shut off services in your [...] Description 12/29/2024 9:15 AM EDT Office Visit [facility] [address] [place] [phone] Kacie Caceres MD [address] [place] [address] 01/01/2025 9:30 AM EDT Office Visit [facility] [address] [place] [address] Pam Pablo MD [address] [place] [address] documented as of this encounter Visit Diagnoses Diagnosis Essential hypertension Unspecified essential hypertension documented in this encounter Care Teams Chief Deputy Sheriff Relationship Specialty Start Date End Date Kacie Caceres MD [address] [place], [place] [phone] PCP - General Family Medicine 01/27/21 Stacey Renae Coil Strapper 07/24/23 10/24/23 documented as of this encounter
--- OUTSIDE RECORDS SUMMARY | 2024-11-11 11:33 | XMS_ITS | Encounter Summary ---
Author Organization [employer] Address [address] [facility] [address] [place] [address] Care Team Providers Care Breading Machine Tender Name Role Phone Kacie Caceres MD Primary Care Provide r Reason for Visit * Reason Onset Date Comments Nurse Triage 09/10/2023 Encounter Details Date Type Department Care Team ([facility] st Contact Info) Description 09/10/2023 Telephone [facility] [address] [place], [place] [phone] Kacie Caceres MD [address] [place], [place] [phone] Nurse Triage Social History Tobacco Use Types Packs/Day Years Used Date Smoking Tobacco: Every Day Cigarettes Passive Smoke Exposure: Current Smokeless Tobacco: Never Alcohol Use Standard Drinks/Week Comments Never 0 (1 standard drink = 0.6 oz pur e alcohol) PHQ-2 Answer Date Recorded Patient Health Questionnaire-2 Score 0 01/02/2023 Housing Stability Answer Date Recorded What is your housing situation today? I have [place] klein 07/30/[address] you [...] Telephone Encounter - Sherrell Blair RN - 09/10/2023 1:06 PM EST Triage call Pt reports finding a possible cause for the chronic pain that has been occurring in theepigastric area of abdomen. Pt reports a small open area which has been open for a while and covered with bandaids with some type of fast healing substance. Pt reports in closer look this has been causing the pain. Pt wants to see provider. Apt with Dr. Lama 09/19/23 2 1215pm . Pt agrees with disposition. Protocol Used: Abdominal Pain - Upper (Adult) Protocol-Based Disposition: See in Office or Video Visit within 2 Weeks Positive Triage Question: * Abdominal pain is a chronic symptom (recurrent or ongoing AND lasting > 4 weeks) * All higher-acuity triage questions were negative Care Advice Discussed: * Drink Clear Fluids * Diet * Telephone Encounter - Ashlyn Ferrer - 09/10/2023 12:45 PM EST Symptoms: Abdominal Pain - Male, Chest Pain - Adult Outcome: Schedule an urgent appointment (within 1 hour) or talk to a nurse or provider soon Reason: Caller denied all higher acuity questions The caller accepted this outcome documented in this encounter Plan of Treatment Upcoming Encounters Date Type Department Care Team (Late st Contact Info) Description 12/29/2024 9:15 AM EDT Office Visit [facility] [address] [place] [phone] Kacie Caceres MD [address] [place], [place] [phone] 01/01/2025 9:30 AM EDT Office Visit [facility] [address] [place] [address] Pam Pablo MD [address] [place] [address] documented as of this encounter Visit Diagnoses Not on filedocumented in this encounter Care Teams Breading Machine Tender Relationship Specialty Start Date End Date Kacie Caceres MD [address] [place] [address] PCP - General Family Medicine 01/27/21 Stacey Renae Clerical Grader 07/24/23 10/24/23 documented as of this encounter
--- OUTSIDE RECORDS SUMMARY | 2024-11-11 11:33 | XMS_ITS | Clinical Summary ---
Author Organization [facility] Address [address] [place] [address] Care Team Providers Care Assistant Auto Center Manager Name Role Phone Unavailable Primary Care Provider Unavailabl e Allergies No known active allergies Medications Medication Sig Dispensed Refills Start Date End Date Status ofloxacin (OCUFLOX) 0.3 % ophthalmic solution Use 5 drops in the affected eye twice a day for 7 days 10 mL 08/18/2019 Active Social History Tobacco Use Types Packs/Day Years Used Date Smoking Tobacco: Every Day Smokeless Tobacco: Current Sex and Gender Information Value Date Recorded Sex Assigned at Not on file Gender Identity Not on file Sexual Orientation Not on file Last Filed Vital Signs Vital Sign Reading Time Taken Comments Blood Pressure 138/89 08/18/2019 8:31 PM EST Pulse 65 08/18/2019 8:31 PM EST Temperature 35.9 ??C (96.7 ??F) 08/18/2019 8:31 PM ES T Respiratory Rate 15 08/18/2019 8:31 PM EST Oxygen Saturation 96% 08/18/2019 8:31 PM EST Inhaled Oxygen Concentration - - Weight - - Height - - Body Mass Index - - Plan of Treatment Health Maintenance Due Date Last Done Comments Hepatitis C Virus Screening 1984 HIV Screening 1997 DTaP/Tdap/Td Vaccines (1 - Tdap) 2003 Hepatitis B Vaccines (1 of 3 - 19+ 3-dose series) 2003 Influenza Vaccine 05/14/2024 COVID-19 Vaccine (2023-2 5 season) 2024 HPV Vaccines Aged Out No longer eligi ble based on patient's age to complete this topic Pneumococcal Vaccine: Pediat tl (0-5 Years) and At-Risk Patients (6 to 49 Years) Aged Out No longer eligible b ased on patient's age to complete this topic
--- OUTSIDE RECORDS SUMMARY | 2024-11-11 11:33 | XMS_ITS | Encounter Summary ---
Author Organization [employer] Address [address] [place] [address] Care Team Providers Care Sound Effects Manager Name Role Phone Kacie Caceres MD Primary Care Provide r Encounter Details Date Type Department Care Team (Late st Contact Info) Description 09/16/2023 Abstract [facility] [address] [place], [place] [phone] Vannesa Lama MD [address] [place], [place] [phone] Social History Tobacco Use Types Packs/Day Years [...] Description 12/29/2024 9:15 AM EDT Office Visit [facility] [address] [place] [place] [phone] Kacie Caceres MD [address] [place] [phone] 01/01/2025 9:30 AM EDT Office Visit [facility] [address] [place] [phone] Pam Pablo MD [address] [place] [phone] documented as of this encounter Visit Diagnoses Not on filedocumented in this encounter Care Teams Sound Effects Manager Relationship Specialty Start Date End Date Kacie Caceres MD [address] [place] [phone] PCP - General Family Medicine 01/27/21 Stacey Renae Bromination Equipment Operator 07/24/23 10/24/23 documented as of this encounter
--- OUTSIDE RECORDS SUMMARY | 2024-11-11 11:34 | XMS_ITS | Encounter Summary ---
Author Organization [facility] Address [address] [place] [address] Care Team Providers Care Field Director Name Role Phone Evy Maria MD Primary Care Provider [phone] Reason for Visit * Reason Comments Chest Pain Encounter Details Date Type Department Care Team (Late st Contact Info) Description 10/20/2024 7:48 AM EST - 10/20/2024 4:03 PM EST Emergency [facility] Emergency [address] [place] [id number] Leoncio Sandoval MD [address] [place] [address] Demarco Stoddard MD [address] [place] [address] Other chest pain (Primary Dx); Cellulitis of chest wall Discharge Disposition: Home or Self Care Social History Tobacco Use Types Packs/Day Years Used Date Smoking Tobacco: Every Day Smokeless Tobacco: Never Alcohol Use Standard Drinks/Week Comments Yes 0 (1 standard drink = 0.6 oz pur e alcohol) Sex and Gender Information Value Date Recorded Sex Assigned at Male 10/20/2024 8:00 AM EST Gender Identity Male 10/20/2024 8:00 AM EST Sexual Orientation Not on file Job Start Date Occupation Industry Not on file Not on file Not on file documented as of this encounter Last Filed Vital Signs Vital Sign Reading Time Taken Comments Blood Pressure 133/80 10/20/2024 2:35 PM EST Pulse 64 10/20/2024 2:35 PM EST Temperature 36.5 ??C (97.7 ??F) 10/20/2024 2:35 PM ES T Respiratory Rate 20 10/20/2024 5:51 AM EST Oxygen Saturation 94% 10/20/2024 2:35 PM EST Inhaled Oxygen Concentration - - Weight 136 kg (300 lb) 10/20/2024 12:16 AM EST Height 175.3 cm (5' 9 ) 10/20/2024 12:16 AM EST Body Mass Index 44.3 10/20/2024 12:16 AM EST documented in this encounter Discharge Instructions * Discharge Instructions* Demarco Stoddard MD - 10/20/2024 3:07 PM EST You were evaluated and treated in the emergency department today for chest pain. It appears you mayhave a mild or early skin infection to your chest wall. The CT scan of your chest shows no blood clots or evidence of internal infection. Doxycycline as directed. A small amount of mupirocin daily into your nostrils for the next 10 days as well. Follow-up with your infectious disease doctor. documented in this encounter Medications at Time of Discharge Medication Sig Dispensed Refills Start Date End Date doxycycline (VIBRAMYCIN) 100 mg capsule Take 1 capsule (100 mg total) by mouth 2 (two) times a day for 10 days. Take with at least 8 ounces (large glass) of water, do not lie down for 30 minutes after 20 capsule 10/20/2024 10/30/2024 mupirocin (BACTROBAN) 2 % ointment Apply topically 3 (three) times a day for 14 days. 30 g 10/20/2024 11/03/2024 documented as of this encounter Ordered Prescriptions Prescription Sig Dispensed Refills Start Date End Da te mupirocin (BACTROBAN) 2 % ointment Apply topically 3 (three) times a day for 14 days. 30 g 10/20/2024 11/03/2024 doxycycline (VIBRAMYCIN) 100 mg capsule Take 1 capsule (100 mg total) by mouth 2 (two) times a day for 10 days. Take with at least 8 ounces (large glass) of water, do not lie down for 30 minutes after 20 capsule 10/20/2024 10/30/2024 documented in this encounter Discharge Disposition Disposition Code Departure Means Destination Comment s Home or Self Care D/c instructions reviewed with and understood by pt. Pt understands to take and apply the medications as prescribed to him. He understands to f/u with his ID doctor and his primary and that he can return to the ER at any time if needed documented in this encounter Progress Notes * Patito Russo RN - 10/20/2024 9:31 AM EST Pt reporting URQ/epigastric discomfort intermittently x1 year since cholecystectomy. Pt reporting recurrent infections needing abx and states that x2 days ago, pain/discomfort returned and he feels like there is a foreign object in his abd moving around . Pt appears uncomfortable at this time, specourt cadet in full sentences and reports a heaviness in his chest making it uncomfortable to take deep breaths. Pt afebrile at this time. * Leoncio Sandoval MD - 10/20/2024 7:50 AM EST 39yoM sp tyrell presents for RUQ ap / RL chest px. States that since his tyrell he has had recurrentinfections requiring abx. Describes a lump in the area and feels like my chest is full of puss. Evaluate CT for fluid collection. Trop x2 are neg, EKG non ischemic, remainder of labs including LFTs normal. * Hilda Leroy RN - 10/20/2024 12:17 AM EST Presents c/o RUQ pain that radiates to his chest. Pt states this pain started about 2 hours ago, hestates he was laying down when the pain started. Describes the pain as a pressure. States he does not have a gallbladder * Demarco Stoddard MD - 10/20/2024 12:13 AM EST Emergency Medicine Note Patient Name: [facility] Initial Evaluation: 10/20/2024 : 1985 Patient's PCP: Evy Maria MD Emergency Physician: Demarco Stoddard MD History of Present Illness Chief Complaint: Chief Complaint Patient presents with Chest Pain 39-year-old male with history of CHF, smoking and psychiatric illness presents for evaluation of chest pain. He states that he has had chest wall infections in the past and feels like he is having another one. He feels like there is pus in his chest just over the inferior sternum. He states he was hospitalized at [facility] for multiple days within the last several months and that this keeps happening. He states he was seen by infectious disease and put on antibiotics. He reports that after beingon antibiotics his symptoms typically get better but then recur. He does not know why he gets recurrent infections. He is a smoker and uses IV drugs and alcohol. History provided by: Patient radiology director used: No ROS: I have performed a ROS with the pertinent positives and negatives documented in the history ofpresent illness. Previous History History reviewed. No pertinent past medical history. Past Surgical History: Procedure Laterality Date KNEE SURGERY Right PROCEDURE:KNEE SURGERY Social History Tobacco Use Smoking status: Every Day Smokeless tobacco: Never Substance Use Topics Alcohol use: Yes Drug use: Yes Types: Heroin, IV No family history on file. is allergic to penicillins. No current facility-administered medications on file prior to encounter. No current outpatient medications on file prior to encounter. Physical Exam ED Triage Vitals Temp Heart Rate Resp BP 10/20/24 0551 10/20/24 0016 10/20/24 0016 10/20/24 0016 36.8 ??C (98.2 ??F) 93 18 130/89 SpO2 Temp Source Heart Rate Source Patient Position 10/20/24 0016 10/20/24 0934 10/20/24 0016 10/20/24 0934 95 % Oral Brachial Sitting BP Location FiO2 (%) 10/20/24 0016 -- Left arm Physical Exam Vitals and nursing note reviewed. Constitutional: Appearance: Normal appearance. He is not ill-appearing. HENT: Head: Normocephalic. Mouth/Throat: Mouth: Mucous membranes are moist. Eyes: Conjunctiva/sclera: Conjunctivae normal. Cardiovascular: Rate and Rhythm: Normal rate and regular rhythm. Pulmonary: Effort: Pulmonary effort is normal. Breath sounds: Normal breath sounds. No stridor. Chest: Comments: Tenderness to palpation over the anterior chest, lower third of the sternum at the midline. He states he is very tender over the palpated xiphoid process. No fluctuance palpated. No ulcerations of the skin in this area. Abdominal: Palpations: Abdomen is soft. Tenderness: There is no abdominal tenderness. Musculoskeletal: Cervical back: Normal range of motion. Right lower leg: No swelling or tenderness. No edema. Left lower leg: No swelling or tenderness. No edema. Skin: General: Skin is warm and dry. Neurological: General: No focal deficit present. Mental Status: He is alert. Psychiatric: Attention and Perception: Attention normal. Behavior: Behavior normal. Results Labs Reviewed LIPASE - Abnormal Result Value Lipase 11 (*) MAGNESIUM - Abnormal Magnesium 1.8 (*) CBC WITH AUTO DIFFERENTIAL - Abnormal WBC 8.3 RBC 4.30 (*) Hemoglobin 14.0 Hematocrit 42.0 MCV 98.6 (*) MCH 32.9 (*) MCHC 33.3 RDW 13.4 Platelets 250 MPV 10.3 NRBC 0.0 NRBC Absolute 0.00 Neutrophils Relative 62.9 Lymphocytes Relative 30.5 Monocytes Relative 5.3 Eosinophils Relative 0.5 Basophils Relative 0.4 Immature Granulocytes Relative 0.4 Neutrophils Absolute 5.22 Lymphocytes Absolute 2.53 Monocytes Absolute 0.44 Eosinophils Absolute 0.04 Basophils Absolute 0.03 Immature Granulocytes Absolute 0.03 TROPONIN I HIGH SENSITIVITY - Normal High Sensitivity Troponin I 4 Narrative: High levels of biotin in samples may falsely decrease hsTroponin values. Use caution when interpreting hsTroponin results in patients taking biotin who exhibit renal impairment (eGFR <60) or in patients taking more than 20 mg/day of biotin. TROPONIN I HIGH SENSITIVITY - Normal High Sensitivity Troponin I 4 Narrative: High levels of biotin in samples may falsely decrease hsTroponin values. Use caution when interpreting hsTroponin results in patients taking biotin who exhibit renal impairment (eGFR <60) or in patients taking more than 20 mg/day of biotin. COMPREHENSIVE METABOLIC PANEL - Normal Sodium 138 Potassium 4.3 Chloride 105 CO2 29 Anion Gap 4 Glucose 94 BUN 8 Creatinine 0.80 eGFR 115 BUN/Creatinine Ratio 10.0 Calcium 9.1 AST (SGOT) 12 ALT (SGPT) 15 Alkaline Phosphatase 89 Total Protein 7.4 Albumin 3.3 Total Bilirubin 0.4 B-TYPE NATRIURETIC PEPTIDE - Normal BNP 35 CBC AND DIFFERENTIAL Narrative: The following orders were created for panel order CBC and differential. Procedure Abnormality Status --------- ------ CBC auto differential[[id number]] Abnormal Final result Please view results for these tests on the individual orders. Abnormal Labs Reviewed LIPASE - Abnormal; Notable for the following components: Result Value Lipase 11 (*) All other components within normal limits MAGNESIUM - Abnormal; Notable for the following components: Magnesium 1.8 (*) All other components within normal limits CBC WITH AUTO DIFFERENTIAL - Abnormal; Notable for the following components: RBC 4.30 (*) MCV 98.6 (*) MCH 32.9 (*) All other components within normal limits CT Angio Chest wo and/or w Contrast Final Result Impression: 1. No evidence of pulmonary thromboembolism is seen. 2. 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 3. Skin thickening along the anterior to anterolateral right chest with apparent retraction of the nipple. Clinical correlation is recommended. Telerad TRACI ([id number]) -------- FINAL REPORT -------- Dictated By: Alice Alatorre Dictated Date: 10/20/2024 13:04 ET Assigned Physician: Alice Alatorre Reviewed and Electronically Signed By: Alice Alatorre Signed Date: 10/20/2024 13:27 ET Workstation ID: [id number] Transcribed By: Self Edit Transcribed Date: 10/20/2024 13:04 ET XR Chest 2 Views Final Result No pneumonia or edema. -------- FINAL REPORT -------- Dictated By: Guillermo Irizarry Dictated Date: 10/20/2024 07:08 ET Assigned Physician: Guillermo Irizarry Reviewed and Electronically Signed By: Guillermo Irizarry Signed Date: 10/20/2024 07:10 ET Workstation ID: [id number] Transcribed By: Self Edit Transcribed Date: 10/20/2024 07:08 ET I have discussed the incidental/abnormal imaging and/or lab abnormalities with the patient and haveinstructed them the need for further evaluation and workup with their primary care doctor. I have provided the patient with a paper copy of the abnormality. The laboratory results, imaging results and other diagnostic exam results were reviewed in the EMR. EKG Interpretation My independent interpretation of EKG at 00: 2 1, 74 bpm, normal sinus rhythm, no STEMI, no significant change compared with prior study from June 2024. My independent interpretation of EKG at 1: 4 1, 62 bpm, normal sinus rhythm, no STEMI, no significant change from prior study. Critical Care Time None ? Differential Diagnosis ACS, unstable angina, aortic dissection, esophageal rupture, GERD, anxiety, pneumonia, pneumothorax Medical Decision Making Medical Decision Making Stable vital signs and multiple nonischemic EKGs. Patient does have risk factors for endocarditis and apparently has been hospitalized for infections in the recent past. I do not have records available for these visits at this time. Will obtain CT scan to assess for possible endocarditis, septic emboli. Otherwise blood work including sequential high-sensitivity troponins is reassuring. Medications sodium chloride 0.9 % flush 10 mL (10 mL intravenous Given 10/20/24 1038) iopamidoL (ISOVUE-370) 370 mg iodine /mL (76 %) injection 90 mL (90 mL intravenous Given 10/20/24 1039) ketorolac (TORADOL) injection 15 mg (15 mg intravenous Given 10/20/24 1111) sodium chloride 0.9 % flush 10 mL (10 mL intravenous Given 10/20/24 1250) iopamidoL (ISOVUE-370) 370 mg iodine /mL (76 %) injection 90 mL (90 mL intravenous Given 10/20/24 1250) ED Course as of 10/20/24 1507 Tue Oct 20, 2024 0959 Troponin I high sensitivity Blood work shows normal blood counts, kidney function, electrolytes. Lipase is mildly decreased andthere is mild hypomagnesemia. Troponin is not uptrending and none elevated. [TC] 1502 More comfortably. CTA chest shows no PE or evidence of acute cellulitis. I discussed these results with the patient. Based on his skin exam it appears that he may have MRSA colonization and frequent MRSA pustules. He does have some redness overlying his inferior sternal area. Will treat with doxycycline and mupirocin to the nares bilaterally. I have asked him to follow-up with his infectiousdisease doctor in the near future. [TC] ED Course User Index [TC] Demarco Stoddard MD Clinical Impressions as of 10/20/24 1507 Other chest pain Cellulitis of chest wall Procedures Procedures Diagnosis 1. Other chest pain CT Angio Chest wo and/or w Contrast CT Angio Chest wo and/or w Contrast 2. Cellulitis of chest wall Disposition Discharge ED Prescriptions Medication Sig Dispense Start Date End Date Auth. Provider doxycycline (VIBRAMYCIN) 100 mg capsule Take 1 capsule (100 mg total) by mouth 2 (two) times a day for 10 days. Take with at least 8 ounces (large glass) of water, do not lie down for 30 minutes after 20 capsule 10/20/2024 10/30/2024 Demarco Stoddard MD mupirocin (BACTROBAN) 2 % ointment Apply topically 3 (three) times a day for 14 days. 30 g / Demarco Stoddard MD Physician Attestation Please note that this chart has been created using speech recognition software and may contain errors related to that system, including errors in grammar, punctuation, and spelling. It may also include errors in words and phrases. If there are any questions or concerns, please feel free to contact me for clarification. Demarco Stoddard MD 10/20/24 0959 Demarco Stoddard MD 10/20/24 1654 Demarco Stoddard MD 10/20/24 2013 documented in this encounter Plan of Treatment Not on file documented as of this encounter Procedures Procedure Name Priority Date/Time Associated Diagnosis Comments CT ANGIO CHEST WO AND/OR W CONTRAST STAT 10/20/2024 12:56 PM EST Other chest pain TROPONIN I HIGH SENSITIVITY STAT 10/20/2024 1:42 AM EST ECG 12-LEAD STAT 10/20/2024 1:41 AM EST XR CHEST 2 VIEWS STAT 10/20/2024 1:12 AM EST TROPONIN I HIGH SENSITIVITY STAT 10/20/2024 12:23 AM EST CBC WITH AUTO DIFFERENTIAL STAT 10/20/2024 12:23 AM EST CBC AND DIFFERENTIAL STAT 10/20/2024 12:23 AM EST B-TYPE NATRIURETIC PEPTIDE STAT 10/20/2024 12:23 AM EST MAGNESIUM STAT 10/20/2024 12:23 AM EST LIPASE STAT 10/20/2024 12:23 AM EST COMPREHENSIVE METABOLIC PANEL STAT 10/20/2024 12:23 AM EST ECG 12-LEAD STAT 10/20/2024 12:21 AM EST ECG OUTSIDE 10/20/2024 ECG ANNOTATED 10/20/2024 ECG ANNOTATED 10/20/2024 documented in this encounter Results * CT Angio Chest wo and/or w Contrast (10/20/2024 12:56 PM EST) Anatomical Region Laterality Modality Body Computed Tomogra phy 10/20/2024 1:04 PM EST Impressions 10/20/2024 1:27 PM EST Impression: 1. No evidence of pulmonary thromboembolism is seen. 2. 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 3. Skin thickening along the anterior to anterolateral right chest with apparent retraction of the nipple. Clinical correlation is recommended. Telecharlotte AVILES ([id number]) -------- FINAL REPORT -------- Dictated By: Alice Alatorre Dictated Date: 10/20/2024 13:04 ET Assigned Physician: Alice Alatorre Reviewed and Electronically Signed By: Alice Alatorre Signed Date: 10/20/2024 13:27 ET Workstation ID: [id number] Transcribed By: Self Edit Transcribed Date: 10/20/2024 13:04 ET Narrative 10/20/2024 1:27 PM EST History: Chest pain. Comparison: No comparison imaging at this institution. TECHNIQUE: Helical volumetric imaging of the thorax was performed in the axial plane during the rapid, intravenous administration of a total of 120 mL Isovue-370, using the CT angiography protocol tailored for evaluation of the pulmonary arteries. Coronal and sagittal images were reformatted from the original data set and maximum intensity pixel images were reviewed, in multiple planes, on an independent CT workstation. Note: The initial IV infiltrated during first injection and no imaging was done. Imaging was performed during the second injection which was uneventful. DLP: 892.09 mGy/cm [employer] Mobile VCT Iterative reconstruction technique Findings: There is adequate opacification of the pulmonary arteries to the proximal subsegmental level bilaterally. No intraluminal filling defects are seen to suggest pulmonary thromboembolism. No pattern of right heart strain is seen. The thoracic aorta is normal in caliber and homogeneously opacified. Left vertebral artery arises from the aortic arch, an anatomic variant. No pleural or pericardial effusions are seen. No mediastinal or hilar lymph node enlargement is identified. Included portions of the thyroid gland show no suspicious nodule. The trachea and central bronchial tree are patent. Diffuse bronchial wall thickening is seen bilaterally, consistent with bronchitis or reactive airways disease. Minimal juxtamediastinal atelectasis is seen at the base of the right middle lobe and lingula. 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 This is very small and is probably not of clinical significance. No suspicious pulmonary nodule or airspace consolidation is seen. There is focal skin thickening of the anterior to anterolateral right chest with apparent retraction of the nipple. Clinical correlation is recommended. A small portion of the upper abdomen included on the lowest images through the thorax is without significant abnormality. Vertebral endplate spurring is noted in the lower thoracic spine. Procedure Note Alice Alatorre MD - 10/20/2024 History: Chest pain. Comparison: No comparison imaging at this institution. TECHNIQUE: Helical volumetric imaging of the thorax was performed in theaxial plane during the rapid, intravenous administration of a total of 120mL Isovue-370, using the CT angiography protocol tailored for evaluationof the pulmonary arteries. Coronal and sagittal images were reformattedfrom the original data set and maximum intensity pixel images werereviewed, in multiple planes, on an independent CT workstation. Note: The initial IV infiltrated during first injection and no imaging wasdone. Imaging was performed during the second injection which wasuneventful. DLP: 892.09 mGy/cm [employer]! VCT Iterative reconstruction technique Findings: There is adequate opacification of the pulmonary arteries to the proximalsubsegmental level bilaterally. No intraluminal filling defects are seento suggest pulmonary thromboembolism. No pattern of right heart strain isseen. The thoracic aorta is normal in caliber and homogeneously opacified.Left vertebral artery arises from the aortic arch, an anatomic variant. No pleural or pericardial effusions are seen. No mediastinal or hilarlymph node enlargement is identified. Included portions of the thyroidgland show no suspicious nodule. The trachea and central bronchial tree are patent. Diffuse bronchial wallthickening is seen bilaterally, consistent with bronchitis or reactiveairways disease. Minimal juxtamediastinal atelectasis is seen at the baseof the right middle lobe and lingula. 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 This is very small and isprobably not of clinical significance. No suspicious pulmonary nodule orairspace consolidation is seen. There is focal skin thickening of the anterior to anterolateral rightchest with apparent retraction of the nipple. Clinical correlation isrecommended. A small portion of the upper abdomen included on the lowest images throughthe thorax is without significant abnormality. Vertebral endplate spurring is noted in the lower thoracic spine. IMPRESSION: Impression: 1. No evidence of pulmonary thromboembolism is seen. 2. Small right lower lobe systemic venous-pulmonary arterialcommunication, likely congenital, unlikely to be of clinicalsignificance. 3. Skin thickening along the anterior to anterolateral right chest withapparent retraction of the nipple. Clinical correlation is recommended. Keren AVILES ([id number]) -------- FINAL REPORT -------- Dictated By: Alice Alatorre Dictated Date: 10/20/2024 13:04 ET Assigned Physician: Alice Alatorre Reviewed and Electronically Signed By: Alice Alatorre Signed Date: 10/20/2024 13:27 ET Workstation ID: [id number] Transcribed By: Self Edit Transcribed Date: 10/20/2024 13:04 ET Demarco Stoddard MD IMG CT PROCEDURES * Troponin I high sensitivity (10/20/2024 1:42 AM EST) [facility] High Sensitivity Troponin I 4 <=79 ng/L LAB CHEMISTRY METHOD 10/20/2024 2:[address] [facility] Blood Venous blood specimen / Unknown Venipuncture / Unknown 10/20/2024 1:42 AM EST 10/20/2024 2:[address] [facility] - 10/20/2024 2:39 AM EST High levels of biotin in samples may falsely decrease hsTroponin values. ??Use caution when interpreting hsTroponin results in patients taking biotin who exhibit renal impairment (eGFR <60) or in patients taking more than 20 mg/day of biotin. Leoncio Sandoval MD LAB BLOOD ORDERABLES [facility] [address] [place] [address], * ECG 12 lead (10/20/2024 1:41 AM EST) [facility] Signature Ventricular Rate ECG 62 BPM GEMUSE Atrial Rate 62 BPM GEMUSE P-R Interval 148 ms GEMUSE QRS Duration 94 ms GEMUSE Q-T Interval 408 ms GEMUSE QTc 414 ms GEMUSE P Wave [place] 63 degrees GEMUSE R [place] -14 degrees GEMUSE T [place] 19 degrees GEMUSE ECG Interpretation Normal sinus rhythm Normal ECG When compared with ECG of 20-OCT-2024 00:21, No significant change was found Confirmed by BARBIE JARAMILLO ([id number]) on 10/20/2024 8:16:32 PM GEMUSE 10/20/2024 1:41 AM EST 10/20/2024 8:16 PM EST Leoncio Sandoval MD ECG ORDERABLES GEMUSE * XR Chest 2 Views (10/20/2024 1:12 AM EST) Anatomical Region Laterality Modality Body Radiographic Marilin ging 10/20/2024 7:08 AM EST Impressions 10/20/2024 7:10 AM EST No pneumonia or edema. -------- FINAL REPORT -------- Dictated By: Guillermo Irizarry Dictated Date: 10/20/2024 07:08 ET Assigned Physician: Guillermo Irizarry Reviewed and Electronically Signed By: Guillermo Irizarry Signed Date: 10/20/2024 07:10 ET Workstation ID: [id number] Transcribed By: Self Edit Transcribed Date: 10/20/2024 07:08 ET Narrative 10/20/2024 7:10 AM EST EXAMINATION: CHEST CLINICAL INFORMATION: Chest pain COMPARISON: Frontal view 07/10/2024 TECHNIQUE: 2 views of the chest FINDINGS: There is mild rotation to left. The cardiac size is within normal limits. There is no mediastinal or hilar mass. There is no edema. There is no focal parenchymal abnormality, pleural fluid or pneumothorax. There is some increased thoracolumbar kyphosis. Procedure Note Guillermo Irizarry MD - 10/20/2024 EXAMINATION: CHEST CLINICAL INFORMATION: Chest pain COMPARISON: Frontal view 07/10/2024 TECHNIQUE: 2 views of the chest FINDINGS: There is mild rotation to left. The cardiac size is within normal limits.There is no mediastinal or hilar mass. There is no edema. There is no focal parenchymal abnormality, pleuralfluid or pneumothorax. There is some increased thoracolumbar kyphosis. IMPRESSION: No pneumonia or edema. -------- FINAL REPORT -------- Dictated By: Guillermo Irizarry Dictated Date: 10/20/2024 07:08 ET Assigned Physician: Guillermo Irizarry Reviewed and Electronically Signed By: Guillermo Irizarry Signed Date: 10/20/2024 07:10 ET Workstation ID: [id number] Transcribed By: Self Edit Transcribed Date: 10/20/2024 07:08 ET Leoncio Sandoval MD IMG XR PROCEDURES * (ABNORMAL) CBC auto differential (10/20/2024 12:23 AM EST) [facility] WBC 8.3 4.8 - 10.8 K/mcL LAB HEMETOLOGY METHOD 10/20/2024 12:46 AM [facility] RBC 4.30(L) 4.50 - 5.50 M/mcL LAB HEMETOLOGY METHOD 10/20/2024 12:46 AM [facility] Hemoglobin 14.0 13.5 - 17.5 g/dL LAB HEMETOLOGY METHOD 10/20/2024 12:46 AM [facility] Hematocrit 42.0 42.0 - 54.0 % LAB HEMETOLOGY METHOD 10/20/2024 12:46 AM [facility] MCV 98.6(H) 79.0 - 98.0 FL LAB HEMETOLOGY METHOD 10/20/2024 12:46 AM [facility] MCH 32.9(H) 27.0 - 32.0 pcg LAB HEMETOLOGY METHOD 10/20/2024 12:46 AM [facility] MCHC 33.3 32.0 - 37.0 g/dL LAB HEMETOLOGY METHOD 10/20/2024 12:46 AM [facility] RDW 13.4 11.0 - 15.0 % LAB HEMETOLOGY METHOD 10/20/2024 12:46 AM [facility] Platelets 250 130 - 400 K/mcL LAB HEMETOLOGY METHOD 10/20/2024 12:46 AM [facility] MPV 10.3 7.0 - 11.0 FL LAB HEMETOLOGY METHOD 10/20/2024 12:46 AM [facility] NRBC 0.0 <1.0 % LAB HEMETOLOGY METHOD 10/20/2024 12:46 AM [facility] NRBC Absolute 0.00 <0.10 K/mcL LAB HEMETOLOGY METHOD 10/20/2024 12:46 AM [facility] Neutrophils Relative 62.9 % LAB HEMETOLOGY METHOD 10/20/2024 12:46 AM [facility] Lymphocytes Relative 30.5 % LAB HEMETOLOGY METHOD 10/20/2024 12:46 AM [facility] Monocytes Relative 5.3 % LAB HEMETOLOGY METHOD 10/20/2024 12:46 AM [facility] Eosinophils Relative 0.5 % LAB HEMETOLOGY METHOD 10/20/2024 12:46 AM [facility] Basophils Relative 0.4 % LAB HEMETOLOGY METHOD 10/20/2024 12:46 AM [facility] Immature Granulocytes Relative 0.4 % LAB HEMETOLOGY METHOD 10/20/2024 12:46 AM [facility] Neutrophils Absolute 5.22 1.50 - 7.00 K/mcL LAB HEMETOLOGY METHOD 10/20/2024 12:46 AM [facility] Lymphocytes Absolute 2.53 1.00 - 5.00 K/mcL LAB HEMETOLOGY METHOD 10/20/2024 12:46 AM [facility] Monocytes Absolute 0.44 0.20 - 1.00 K/mcL LAB HEMETOLOGY METHOD 10/20/2024 12:46 AM [facility] Eosinophils Absolute 0.04 0.00 - 0.50 K/mcL LAB HEMETOLOGY METHOD 10/20/2024 12:46 AM [facility] Basophils Absolute 0.03 0.00 - 0.20 K/mcL LAB HEMETOLOGY METHOD 10/20/2024 12:46 AM [facility] Immature Granulocytes Absolute 0.03 0.00 - 0.03 K/mcL LAB HEMETOLOGY METHOD 10/20/2024 12:[address] [facility] Blood Venous blood specimen / Unknown Venipuncture / Unknown 10/20/2024 12:23 AM EST 10/20/2024 12:41 AM EST Leoncio Sandoval MD LAB BLOOD ORDERABLES Performing Organization Address City/[facility]/ZIP Co de Phone Number [facility] [address] [place] [address], [place] [phone] * B-type natriuretic peptide (10/20/2024 12:23 AM EST) BNP 35 <=100 pcg/mL LAB CHEMISTRY METHOD 10/20/2024 1:[address] [facility] Blood Venous blood specimen / Unknown Venipuncture / Unknown 10/20/2024 12:23 AM EST 10/20/2024 12:41 AM EST Leoncio Sandoval MD LAB BLOOD ORDERABLES Performing Organization Address City/[facility]/ZIP Co de Phone Number [facility] [address] [place] [address], [place] [phone] * (ABNORMAL) Magnesium (10/20/2024 12:23 AM EST) Magnesium 1.8(L) 1.9 - 2.6 mg/dL LAB CHEMISTRY METHOD 10/20/2024 1:[address] [facility] Blood Venous blood specimen / Unknown Venipuncture / Unknown 10/20/2024 12:23 AM EST 10/20/2024 12:40 AM EST Leoncio Sandoval MD LAB BLOOD ORDERABLES Performing Organization Address City/[facility]/ZIP Co de Phone Number [facility] [address] [place] [address], [place] [phone] * (ABNORMAL) Lipase (10/20/2024 12:23 AM EST) Lipase 11(L) 13 - 75 unit/L LAB CHEMISTRY METHOD 10/20/2024 1:09 AM [facility] Blood Venous blood specimen / Unknown Venipuncture / Unknown 10/20/2024 12:23 AM EST 10/20/2024 12:40 AM EST Leoncio Sandoval MD LAB BLOOD ORDERABLES [facility] [address] [place] [address], * Comprehensive metabolic panel (10/20/2024 12:23 AM EST) Pathologist [facility] Sodium 138 133 - 145 mmol/L LAB CHEMISTRY METHOD 10/20/2024 1:09 AM [facility] Potassium 4.3 3.5 - 5.5 mmol/L LAB CHEMISTRY METHOD 10/20/2024 1:09 AM [facility] Chloride 105 96 - 110 mmol/L LAB CHEMISTRY METHOD 10/20/2024 1:09 AM [facility] CO2 29 21 - 32 mmol/L LAB CHEMISTRY METHOD 10/20/2024 1:09 AM [facility] Anion Gap 4 3 - 11 LAB CHEMISTRY METHOD 10/20/2024 1:09 AM [facility] Glucose 94 70 - 100 mg/dL LAB CHEMISTRY METHOD 10/20/2024 1:09 AM [facility] BUN 8 5 - 25 mg/dL LAB CHEMISTRY METHOD 10/20/2024 1:09 AM [facility] Creatinine 0.80 0.70 - 1.30 mg/dL LAB CHEMISTRY METHOD 10/20/2024 1:09 AM [facility] eGFR 115 >=60 mL/min/1. 73m2 LAB CHEMISTRY METHOD 10/20/2024 1:09 AM [facility] Comment:Calculation based on the??Chronic Kidney Disease Epidemiology Collaboration (CKD-EPI) equation refit??without adjustment for race. BUN/Creatinine Ratio 10.0 LAB CHEMISTRY METHOD 10/20/2024 1:09 AM [facility] Calcium 9.1 8.5 - 10.5 mg/dL LAB CHEMISTRY METHOD 10/20/2024 1:09 AM [facility] AST (SGOT) 12 10 - 42 unit/L LAB CHEMISTRY METHOD 10/20/2024 1:09 AM [facility] ALT (SGPT) 15 10 - 60 unit/L LAB CHEMISTRY METHOD 10/20/2024 1:09 AM [facility] Alkaline Phosphatase 89 42 - 121 unit/L LAB CHEMISTRY METHOD 10/20/2024 1:09 AM [facility] Total Protein 7.4 6.0 - 8.0 g/dL LAB CHEMISTRY METHOD 10/20/2024 1:09 AM [facility] Albumin 3.3 3.2 - 5.0 g/dL LAB CHEMISTRY METHOD 10/20/2024 1:09 AM [facility] Total Bilirubin 0.4 0.0 - 1.4 mg/dL LAB CHEMISTRY METHOD 10/20/2024 1:09 AM [facility] Blood Venous blood specimen / Unknown Venipuncture / Unknown 10/20/2024 12:23 AM EST 10/20/2024 12:40 AM EST Leoncio Sandoval MD LAB BLOOD ORDERABLES [facility] [address] [place] [address], * Troponin I high sensitivity (10/20/2024 12:23 AM EST) High Sensitivity Troponin I 4 <=79 ng/L LAB CHEMISTRY METHOD 10/20/2024 1:09 AM [facility] Blood Venous blood specimen / Unknown Venipuncture / Unknown 10/20/2024 12:23 AM EST 10/20/2024 12:41 AM EST [facility]ative [facility] - 10/20/2024 1:09 AM EST High levels of biotin in samples may falsely decrease hsTroponin values. ??Use caution when interpreting hsTroponin results in patients taking biotin who exhibit renal impairment (eGFR <60) or in patients taking more than 20 mg/day of biotin. Leoncio Sandoval MD LAB BLOOD ORDERABLES [facility]) [facility] [address] [place] [address], * ECG 12 lead (10/20/2024 12:21 AM EST) Ventricular Rate ECG 78 BPM GEMUSE Atrial Rate 78 BPM GEMUSE P-R Interval 144 ms GEMUSE QRS Duration 96 ms GEMUSE Q-T Interval 392 ms GEMUSE QTc 446 ms GEMUSE P Wave [place] 75 degrees GEMUSE R [place] -14 degrees GEMUSE T [place] 32 degrees GEMUSE ECG Interpretation Normal sinus rhythm Normal ECG When compared with ECG of 10-JUL-2024 21:29, No significant change was found Confirmed by BARBIE JARAMILLO ([id number]) on 10/20/2024 8:01:47 PM GEMUSE 10/20/2024 12:2 1 AM EST 10/20/2024 8:01 PM EST Leoncio Sandoval MD ECG ORDERABLES GEMUSE * ECG-Annotated (10/20/2024) Provider Onbase ECG ORDERABLES * ECG-Annotated (10/20/2024) Provider Onbase ECG ORDERABLES * ECG-Outside (10/20/2024) Provider Onbase MD ECG ORDERABLES documented in this encounter Visit Diagnoses Diagnosis Other chest pain- Primary Cellulitis of chest wall Cellulitis and abscess of trunk documented in this encounter Administered Medications Inactive Administered Medications - up to 3 most recent administrations Medication Order MAR Action Action Date Dose Rate Site iopamidoL (ISOVUE-370) 370 mg iodine /mL (76 %) injection 90 mL 90 mL, intravenous, Once in imaging, Starting on Sat10/20/24 at 1037, For 1 dose Given 10/20/2024 10:39 AM EST 90 mL iopamidoL (ISOVUE-370) 370 mg iodine /mL (76 %) injection 90 mL 90 mL, intravenous, Once in imaging, Starting on Sat10/20/24 at 1249, For 1 dose Given 10/20/2024 12:50 PM EST 90 mL ketorolac (TORADOL) injection 15 mg 15 mg, intravenous, Once, On Sat10/20/24 at 1043, For 1 dose Given 10/20/2024 11:11 AM EST 15 mg sodium chloride 0.9 % flush 10 mL 10 mL, intravenous, Once, On Sat10/20/24 at 1038, For 1 dose Given 10/20/2024 10:38 AM EST 10 mL sodium chloride 0.9 % flush 10 mL 10 mL, intravenous, Once, On Sat10/20/24 at 1250, For 1 dose Given 10/20/2024 12:50 PM EST 10 mL documented in this encounter Active and Recently Administered Medications Times are shown in EST. Scheduled Medication Order 10/18/2024 10/19/2024 10/20/2024 iopamidoL (ISOVUE-370) 370 mg iodine /mL (76 %) injection 90 mL (COMPLETED) 90 mL, intravenous, Once in imaging, Starting on Sat10/20/24 at 1037, For 1 dose 1039 (Given - Provid er: Kurt Limon) iopamidoL (ISOVUE-370) 370 mg iodine /mL (76 %) injection 90 mL (COMPLETED) 90 mL, intravenous, Once in imaging, Starting on Sat10/20/24 at 1249, For 1 dose 1250 (Given - Provid er: Yaquelin Magdaleno) ketorolac (TORADOL) injection 15 mg (COMPLETED) 15 mg, intravenous, Once, On Sat10/20/24 at 1043, For 1 dose 1111 (Given - Provid er: Patito Russo RN) sodium chloride 0.9 % flush 10 mL (COMPLETED) 10 mL, intravenous, Once, On Sat10/20/24 at 1038, For 1 dose 1038 (Given - Provid er: Kurt Limon) sodium chloride 0.9 % flush 10 mL (COMPLETED) 10 mL, intravenous, Once, On Sat10/20/24 at 1250, For 1 dose 1250 (Given - Provid er: Yaquelin Magdaleno) documented in this encounter Orders IV Count Last Ordered Date First Orde red Date INSERT PERIPHERAL IV 1 10/20/2024 documented in this encounter Care Teams Field Director Relationship Specialty Start Date End Date Evy Maria MD [address] [place] [phone] PCP - General Internal Medicine 09/22/18 documented as of this encounter
--- OUTSIDE RECORDS SUMMARY | 2024-11-11 11:34 | XMS_ITS | Clinical Summary ---
Author Organization [facility] Address [address] [place] [address] Phone Care Team Providers Care Director Of Corporate Marketing Name Role Phone Evy Maria MD Primary Care Provider [phone] Allergies Active Allergy Reactions Criticality Noted Date Comments Penicillins Anaphylaxis,Angioedema High 02/10/2021 Medications Medication Sig Dispensed Refills Start Date End Date Status doxycycline (VIBRAMYCIN) 100 mg capsule Take 1 capsule (100 mg total) by mouth 2 (two) times a day for 10 days. Take with at least 8 ounces (large glass) of water, do not lie down for 30 minutes after 20 capsule 10/20/2024 10/30/2024 mupirocin (BACTROBAN) 2 % ointment Apply topically 3 (three) times a day for 14 days. 30 g 10/20/2024 11/03/2024 Encounters Date Type Department Care Team Description 10/20/2024 7:48 AM EST - 10/20/2024 4:03 PM EST Emergency [facility] Emergency [address] [place] [address] Leoncio Sandoval MD Christensen, Tyler M, MD Other chest pain (Primary Dx); Cellulitis of chest wall Discharge Disposition: Home or Self Care from Last 3 Months Surgical History Surgery Date Site/Laterality Comments KNEE SURGERY Right PROCEDURE:KNEE SURGERY Social History Tobacco Use Types Packs/Day Years [...] file Not on file Not on file Obstetrics History Last Filed Vital Signs Vital Sign Reading [...] Mass Index 44.3 10/20/2024 12:16 AM EST Plan of Treatment Health Maintenance Due Date Last Done Comments Pneumococcal Vaccine: Pediatrics (0 to 5 Years) and At-Risk Patients (6 to 64 Years) (2 of 2 - PCV) 05/17/2009 05/17/2008, 09/25/2007 Hepatitis C Screening 09/16/2022 Social Influencers of Health Screening 09/16/2022 COVID-19 Vaccine ( - season) 2024 03/06/2021, 02/06/2021 Depression Screening 08/20/2025 08/20/2024 Hypertension/CHF/CAD Annual BMP Blood Test 10/20/2025 10/20/2024 Cholesterol Screening (Lipid Panel) 01/27/2026 01/27/2021 DTaP,Tdap,and Td Vaccines (3 - Td or Tdap) 03/30/2028 03/30/2018, 05/17/2008 Hepatitis A Vaccines Aged Out 10/12/2008, 04/27/2008, [...] on patient's age to complete this topic MMR Vaccines Aged Out No longer eligi ble based on patient's age to complete this topic Meningococcal ACWY Vaccine Aged Out N o longer eligible based on patient's age to complete this topic RSV Immunization Patients Under 20 months Aged Out No longer eligible based on patient's age to complete this topic Varicella Vaccines Aged Out No longer eligible based on patient's age to complete this topic Procedures Procedure Name Priority Date/Time Associated Diagnosis Comments CT ANGIO CHEST WO AND/OR W CONTRAST STAT 10/20/2024 12:56 PM EST Other chest pain TROPONIN I HIGH SENSITIVITY STAT 10/20/2024 1:42 AM EST ECG 12-LEAD STAT 10/20/2024 1:41 AM EST XR CHEST 2 VIEWS STAT 10/20/2024 1:12 AM EST CBC WITH AUTO DIFFERENTIAL STAT 10/20/2024 12:23 AM EST B-TYPE NATRIURETIC PEPTIDE STAT 10/20/2024 12:23 AM EST MAGNESIUM STAT 10/20/2024 12:23 AM EST LIPASE STAT 10/20/2024 12:23 AM EST COMPREHENSIVE METABOLIC PANEL STAT 10/20/2024 12:23 AM EST CBC AND DIFFERENTIAL STAT 10/20/2024 12:23 AM EST TROPONIN I HIGH SENSITIVITY STAT 10/20/2024 12:23 AM EST ECG 12-LEAD STAT 10/20/2024 12:21 AM EST ECG ANNOTATED 10/20/2024 ECG ANNOTATED 10/20/2024 ECG OUTSIDE 10/20/2024 from Last 3 Months Results * CT Angio Chest wo and/or [...] of the nipple. Clinical correlation is recommended. Jelli PA ([id number]) -------- FINAL REPORT -------- Dictated By: Alice Alatorre Dictated Date: 10/20/2024 13:04 ET Assigned Physician: Alice Alatorre Reviewed and Electronically Signed By: Alice Alatorre Signed Date: 10/20/2024 13:27 ET Workstation ID: [id number] Transcribed By: Self Edit Transcribed Date: 10/20/2024 [...] injection which was uneventful. DLP: 892.09 mGy/cm viseto VCT Iterative reconstruction technique Findings: There is [...] second injection which wasuneventful. DLP: 892.09 mGy/cm iDenti[employer]pe[employer] VCT Iterative reconstruction technique Findings: There is [...] the nipple. Clinical [place] ([id number]) -------- FINAL REPORT -------- Dictated By: Alice Alatorre Dictated Date: 10/20/2024 13:04 ET Assigned Physician: Alice Alatorre Reviewed and Electronically Signed By: Alice Alatorre Signed Date: 10/20/2024 13:27 ET Workstation ID: [id number] Transcribed By: Self Edit Transcribed Date: 10/20/2024 13:04 ET Demarco Stoddard MD IMG CT PROCEDURES * Troponin I high sensitivity (10/20/2024 1:42 AM EST) Only the most recent of2 resultswithin the time period is included. High Sensitivity Troponin I 4 <=79 ng/L LAB CHEMISTRY METHOD 10/20/2024 2:39 AM EST [facility] Blood Venous blood specimen / Unknown Venipuncture / Unknown 10/20/2024 1:42 AM EST 10/20/2024 2:03 AM EST Narrative [facility] - 10/20/2024 2:39 AM EST High levels of biotin in samples may falsely decrease hsTroponin values. ??Use caution when interpreting hsTroponin results in patients taking biotin who exhibit renal impairment (eGFR <60) or in patients taking more than 20 mg/day of biotin. Leoncio Sandoval MD LAB BLOOD ORDERABLES Performing Organization Address City/[facility]/ZIP Co de Phone Number [facility] [address] [place] [address], * ECG 12 lead (10/20/2024 1:41 AM EST) Only the most recent of2 resultswithin the time period is included. Ventricular Rate ECG 62 BPM GEMUSE Atrial Rate 62 BPM GEMUSE P-R Interval 148 ms GEMUSE QRS Duration 94 ms GEMUSE Q-T Interval 408 ms GEMUSE QTc 414 ms GEMUSE P Wave [place] 63 degrees GEMUSE R [place] -14 degrees GEMUSE T [place] 19 degrees GEMUSE ECG Interpretation Normal sinus rhythm Normal ECG When compared with ECG of 20-OCT-2024 00:21, No significant change was found Confirmed by BARBIE JARAMILLO ([id number]) on 10/20/2024 8:16:32 PM GEMUSE 10/20/2024 1:41 AM EST 10/20/2024 8:16 PM EST Leoncio Sandoval MD ECG ORDERABLES Performing Organization Address [facility] Co de Phone Number GEMUSE * XR Chest 2 Views (10/20/2024 1:12 AM EST) Anatomical Region Laterality Modality Body Radiographic Marilin ging 10/20/2024 7:08 AM EST Impressions 10/20/2024 7:10 AM EST No pneumonia or edema. -------- FINAL REPORT -------- Dictated By: Guillermo Irizarry Dictated Date: 10/20/2024 07:08 ET Assigned Physician: Guillermo Irizarry Reviewed and Electronically Signed By: Guillermo Irizarry Signed Date: 10/20/2024 07:10 ET Workstation ID: [id number] Transcribed By: Self Edit Transcribed Date: 10/20/2024 [...] Signed Date: 10/20/2024 07:10 ET Workstation ID: [id number] Transcribed By: Self Edit Transcribed Date: 10/20/2024 07:08 ET Leoncio Sandoval MD IMG XR PROCEDURES * (ABNORMAL) CBC auto differential (10/20/2024 12:23 AM EST) WBC 8.3 4.8 - 10.8 K/mcL LAB HEMETOLOGY METHOD 10/20/2024 12:46 AM [facility] RBC 4.30(L) 4.50 - 5.50 M/mcL LAB HEMETOLOGY METHOD 10/20/2024 12:46 AM [facility] Hemoglobin 14.0 13.5 - 17.5 g/dL LAB HEMETOLOGY METHOD 10/20/2024 12:46 AM [facility] Hematocrit 42.0 42.0 - 54.0 % LAB HEMETOLOGY METHOD 10/20/2024 12:46 AM [facility] MCV 98.6(H) 79.0 - 98.0 FL LAB HEMETOLOGY METHOD 10/20/2024 12:46 AM [facility] MCH 32.9(H) 27.0 - 32.0 pcg LAB HEMETOLOGY METHOD 10/20/2024 12:46 AM [facility] MCHC 33.3 32.0 - 37.0 g/dL LAB HEMETOLOGY METHOD 10/20/2024 12:46 AM [facility] RDW 13.4 11.0 - 15.0 % LAB HEMETOLOGY METHOD 10/20/2024 12:46 AM [facility] Platelets 250 130 - 400 K/mcL LAB HEMETOLOGY METHOD 10/20/2024 12:46 AM [facility] MPV 10.3 7.0 - 11.0 FL LAB HEMETOLOGY METHOD 10/20/2024 12:46 AM [facility] NRBC 0.0 <1.0 % LAB HEMETOLOGY METHOD 10/20/2024 12:46 AM [facility] NRBC Absolute 0.00 <0.10 K/mcL LAB HEMETOLOGY METHOD 10/20/2024 12:46 AM [facility] Neutrophils Relative 62.9 % LAB HEMETOLOGY METHOD 10/20/2024 12:46 AM [facility] Lymphocytes Relative 30.5 % LAB HEMETOLOGY METHOD 10/20/2024 12:46 AM [facility] Monocytes Relative 5.3 % LAB HEMETOLOGY METHOD 10/20/2024 12:46 AM [facility] Eosinophils Relative 0.5 % LAB HEMETOLOGY METHOD 10/20/2024 12:46 AM [facility] Basophils Relative 0.4 % LAB HEMETOLOGY METHOD 10/20/2024 12:46 AM [facility] Immature Granulocytes Relative 0.4 % LAB HEMETOLOGY METHOD 10/20/2024 12:46 AM EST [facility] Neutrophils Absolute 5.22 1.50 - 7.00 K/mcL LAB HEMETOLOGY METHOD 10/20/2024 12:46 AM [facility] Lymphocytes Absolute 2.53 1.00 - 5.00 K/mcL LAB HEMETOLOGY METHOD 10/20/2024 12:46 AM [facility] Monocytes Absolute 0.44 0.20 - 1.00 K/mcL LAB HEMETOLOGY METHOD 10/20/2024 12:46 AM [facility] Eosinophils Absolute 0.04 0.00 - 0.50 K/mcL LAB HEMETOLOGY METHOD 10/20/2024 12:46 AM [facility] Basophils Absolute 0.03 0.00 - 0.20 K/mcL LAB HEMETOLOGY METHOD 10/20/2024 12:46 AM [facility] Immature Granulocytes Absolute 0.03 0.00 - 0.03 K/mcL LAB HEMETOLOGY METHOD 10/20/2024 12:46 AM [facility] Blood Venous blood specimen / Unknown Venipuncture / Unknown 10/20/2024 12:23 AM EST 10/20/2024 12:41 AM EST Leoncio Sandoval MD LAB BLOOD ORDERABLES [facility] [address] [place] [address], * B-type natriuretic peptide (10/20/2024 12:23 AM EST) BNP 35 <=100 pcg/mL LAB CHEMISTRY METHOD 10/20/2024 1:15 AM EST [facility] Blood Venous blood specimen / Unknown Venipuncture / Unknown 10/20/2024 12:23 AM EST 10/20/2024 12:41 AM EST Leoncio Sandoval MD LAB BLOOD ORDERABLES Performing Organization Address [facility]/ZIP Co de Phone Number [facility] [address] [place] [address], [place] [phone] * (ABNORMAL) Magnesium (10/20/2024 12:23 AM EST) [facility] Magnesium 1.8(L) 1.9 - 2.6 mg/dL LAB CHEMISTRY METHOD 10/20/2024 1:09 AM EST [facility] Blood Venous blood specimen / Unknown Venipuncture / Unknown 10/20/2024 12:23 AM EST 10/20/2024 12:40 AM EST Leoncio Sandoval MD LAB BLOOD ORDERABLES Performing Organization Address [facility]/ZIP Co de Phone Number [facility] [address] [place] [address], [place] [phone] * (ABNORMAL) Lipase (10/20/2024 12:23 AM EST) [facility] Lipase 11(L) 13 - 75 unit/L LAB CHEMISTRY METHOD 10/20/2024 1:09 AM EST [facility] Blood Venous blood specimen / Unknown Venipuncture / Unknown 10/20/2024 12:23 AM EST 10/20/2024 12:40 AM EST Leoncio Sandoval MD LAB BLOOD ORDERABLES Performing Organization Address City/[facility]/ZIP Co de Phone Number [facility] [address] [place] [address], [place] [phone] * Comprehensive metabolic panel (10/20/2024 12:23 AM EST) [facility] Sodium 138 133 - 145 mmol/L LAB CHEMISTRY METHOD 10/20/2024 1:09 AM [facility] Potassium 4.3 3.5 - 5.5 mmol/L LAB CHEMISTRY METHOD 10/20/2024 1:09 AM [facility] Chloride 105 96 - 110 mmol/L LAB CHEMISTRY METHOD 10/20/2024 1:09 AM [facility] CO2 29 21 - 32 mmol/L LAB CHEMISTRY METHOD 10/20/2024 1:09 AM [facility] Anion Gap 4 3 - 11 LAB CHEMISTRY METHOD 10/20/2024 1:09 AM [facility] Glucose 94 70 - 100 mg/dL LAB CHEMISTRY METHOD 10/20/2024 1:09 AM [facility] BUN 8 5 - 25 mg/dL LAB CHEMISTRY METHOD 10/20/2024 1:09 AM [facility] Creatinine 0.80 0.70 - 1.30 mg/dL LAB CHEMISTRY METHOD 10/20/2024 1:09 AM [facility] eGFR 115 >=60 mL/min/1. 73m2 LAB CHEMISTRY METHOD 10/20/2024 1:09 AM [facility] Comment:Calculation based on the??Chronic Kidney Disease Epidemiology Collaboration (CKD-EPI) equation refit??without adjustment for race. BUN/Creatinine Ratio 10.0 LAB CHEMISTRY METHOD 10/20/2024 1:09 AM [facility] Calcium 9.1 8.5 - 10.5 mg/dL LAB CHEMISTRY METHOD 10/20/2024 1:09 AM [facility] AST (SGOT) 12 10 - 42 unit/L LAB CHEMISTRY METHOD 10/20/2024 1:09 AM [facility] ALT (SGPT) 15 10 - 60 unit/L LAB CHEMISTRY METHOD 10/20/2024 1:09 AM [facility] Alkaline Phosphatase 89 42 - 121 unit/L LAB CHEMISTRY METHOD 10/20/2024 1:09 AM EST [facility] Total Protein 7.4 6.0 - 8.0 g/dL LAB CHEMISTRY METHOD 10/20/2024 1:09 AM EST [facility] Albumin 3.3 3.2 - 5.0 g/dL LAB CHEMISTRY METHOD 10/20/2024 1:09 AM EST [facility] Total Bilirubin 0.4 0.0 - 1.4 mg/dL LAB CHEMISTRY METHOD 10/20/2024 1:09 AM EST [facility] Blood Venous blood specimen / Unknown Venipuncture / Unknown 10/20/2024 12:23 AM EST 10/20/2024 12:40 AM EST Leoncio Sandoval MD LAB BLOOD ORDERABLES [facility] [address] [place] [address], * ECG-Outside (10/20/2024) Provider Onbase MD ECG ORDERABLES * ECG-Annotated (10/20/2024) Only the most recent of2 resultswithin the time period is included. Provider Onbase MD ECG ORDERABLES from Last 3 Months Care Teams Director Of Corporate Marketing Relationship Specialty Start Date End Date Evy Maria MD [address] [place] [phone] PCP - General Internal Medicine 09/22/18
== END 2024-11-11 10:41 | disposition home or self-care (01) ==
PROVIDERS: PCP Internal Medicine; Visit Provider Nurse Practitioner Family
DX: J44.89 Other specified chronic obstructive pulmonary disease (principal); G47.33 Obstructive sleep apnea (adult) (pediatric); Z86.711 Personal history of pulmonary embolism; G47.34 Idiopathic sleep related nonobstructive alveolar hypoventilation; F17.210 Nicotine dependence, cigarettes, uncomplicated
CPT/HCPCS: 99214

== ENCOUNTER → 2024-11-11 09:47 | Outpatient (BNVA) | payer MEDICAID, SELFPAY | PROVIDERS: PCP Internal Medicine; Visit Provider Nurse Practitioner Family | DX: J44.89 Other specified chronic obstructive pulmonary disease (principal); F17.210 Nicotine dependence, cigarettes, uncomplicated; G47.33 Obstructive sleep apnea (adult) (pediatric); G47.34 Idiopathic sleep related nonobstructive alveolar hypoventilation; Z86.711 Personal history of pulmonary embolism; Z91.199 Patient's noncompliance with other medical treatment and regimen due to unspecified reason | CPT/HCPCS: 99212 ==

== ENCOUNTER 2024-12-10 07:09 | Outpatient (REF) | payer MEDICAID, SELFPAY ==
--- NOTE | ~2024-12-10 | US_ITS ---
CLINICAL HISTORY: elevated LFTs, bilirrubin in urine Exam: 1. Ultrasound of the abdomen, complete. 2. Duplex ultrasound of the main portal vein. Comparison: None. Findings: Liver measures 18 cm in long axis. Increased echotexture throughout the liver without focal lesion or intrahepatic biliary ductal dilatation. Common bile duct is within normal limits. Gallbladder is surgically absent. Pancreas and spleen are unremarkable. Right kidney measures 11.1 cm in long axis. Right kidney is of normal echotexture without focal lesion, nephrolithiasis, or hydronephrosis. Left kidney measures 11.3 cm in long axis. There is a 3.2 x 2.3 x 2.9 cm simple cyst within the left kidney. No hydronephrosis. Aorta and inferior vena cava are patent. No free fluid. Duplex evaluation of the main portal vein was performed. This included real-time grayscale, color spectral Doppler analysis, and color Doppler flow imaging. Main portal vein is patent with hepatopetal flow. Impression: 1. Borderline hepatomegaly with increased hepatic echotexture. This can be seen with fatty infiltration or medical liver disease. 2. No biliary dilation. 3. Simple left renal cyst. This document has been electronically signed by: Varun De La Torre MD on 12/10/2024 10:46:50
--- OUTSIDE RECORDS SUMMARY | 2024-12-10 07:11 | XMS_ITS | Encounter Summary ---
Author Organization [facility] Address [address] [place] [address] Care Team Providers Care Cone Sewer Name Role Phone Unavailable Primary Care Provider Unavailabl e Reason for Visit * Reason Comments Behavioral Health Medication Management Encounter Details Date Type Department Care Team (Latest Contact Info) Description 11/10/2024 8:00 AM EST Behavioral Health Visit [facility] [address] [place] [phone] Reed Tan, HNP [address] [place] [address] [place] [phone] PTSD (post-traumatic stress disorder) (Primary Dx); Alcoholic [...] Tan, HNP - 11/10/2024 8:00 AM EST [facility] OFFICE VISIT Name: Lino Bradley : 1985 PCP: No primary care provider on file. ASSESSMENT AND PLAN Problem List Items Addressed This Visit Alcoholic ([facility]) Denies current/recent alcohol use. Moderate episode of recurrent major depressive disorder ([facility]) A: denies current depressed mood. Plan: olanzapine [...] Follow-up: No follow-ups on file. [facility] 11/10/[facility]24 8:06 AM EST REASON FOR [...] with 17 yo son. 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 Wants [...] Upcoming Encounters Date Type Department Care Team ([facility] st Contact Info) Description 12/22/2024 8:00 AM EDT Behavioral Health Visit [facility] [address] [place] [phone] Reed Tan, PMHNP [address] [facility] [place] [phone] documented as of this encounter Visit Diagnoses Diagnosis PTSD (post-traumatic stress disorder)- Primary Posttraumatic stress disorder Alcoholic (HCC-CMS) Other and unspecified alcohol dependence, unspecified drinking behavior Moderate episode of recurrent major depressive disorder (HCC-CMS) KRISTA (generalized anxiety disorder) Generalized anxiety disorder documented in this encounter
--- OUTSIDE RECORDS SUMMARY | 2024-12-10 07:11 | XMS_ITS | Encounter Summary ---
Author Organization [employer] Address [address] [address], [place] [address] Care Team Providers Care Rn Case Mgr Name Role Phone Kacie Caceres MD Primary Care Provide r Reason for Visit * Reason Onset Date Comments Appointment Request 02/26/2023 Encounter Details Date Type Department Care Team (Late st Contact Info) Description 02/26/2023 Telephone [facility] [address] [place], [place] [phone] Kacie Caceres MD [address] [place], [place] [phone] Appointment Request Social History Tobacco Use Types [...] # . Appt details FMLA concern . [place] attempt to book nothing available for the rest of february . documented in this encounter Plan of Treatment Upcoming Encounters Date Type Department Care Team (Late st Contact Info) Description 12/29/2024 9:15 AM EDT Office Visit [facility] [address] [place] [phone] Kacie Caceres MD [address] [place] [address] 01/01/2025 9:30 AM EDT Office Visit [facility] [address] [place] [address] Pam Pablo MD [address] [place] [address] [phone] documented as of this encounter Visit Diagnoses Not on filedocumented in this encounter Care Teams Rn Case Mgr Relationship Specialty Start Date End Date Kacie Caceres MD [address] [place] [address] [phone] PCP - General Family Medicine 01/27/21 Stacey Renae Product Safety Officer 07/24/23 10/24/23 documented as of this encounter
--- OUTSIDE RECORDS SUMMARY | 2024-12-10 07:11 | XMS_ITS | Encounter Summary ---
Author Organization [employer] [facility] Address [address] [place] [address] [address] [place] [address] Care Team Providers Care Scrap Kettle Tender Name Role Phone Kacie Caceres MD Primary Care Provide r Reason for Visit * Reason Comments Med Refill Encounter Details Date Type Department Care Team (Late st Contact Info) Description 07/06/2023 Refill [facility] [address] [place] [address] [phone] Kacie Caceres MD [address] [place], [place] [phone] Open wound of right chest wall, initial [...] 9:15 AM EDT Office Visit [facility] [address] [place] [phone] Kacie Caceres MD [address] [place], [place] [phone] 01/01/2025 9:30 AM EDT Office Visit [facility] [address] [place] [address] Pam Pablo MD [address] [place], [place] [phone] documented as of this encounter Visit Diagnoses Diagnosis Open wound of right chest wall, initial encounter Scalp pruritus Dermatitis Contact dermatitis and other eczema, due to unspecified cause documented in this encounter Care Teams Scrap Kettle Tender Relationship Specialty Start Date End Date Kacie Caceres MD [address] [place], [place] [phone] PCP - General Family Medicine 01/27/21 Stacey Renae Office Services Specialist 07/24/23 10/24/23 documented as of this encounter
--- OUTSIDE RECORDS SUMMARY | 2024-12-10 07:11 | XMS_ITS | Clinical Summary ---
Author Organization [facility] Address [address] [place] [address] Phone Care Team Providers Care Custody Officer Name Role Phone Evy Maria MD Primary Care Provider [phone] Allergies Active Allergy Reactions Criticality Noted Date Comments Penicillins Anaphylaxis,Angioedema High 02/10/2021 Encounters Date Type Department Care Team Description 10/20/2024 7:48 AM EST - 10/20/2024 4:03 PM EST Emergency [facility] Emergency [address] [place] [address] Leoncio Sandoval MD Christensen, Tyler [...] Assigned at Male 10/20/2024 8:00 AM EST Legal Sex Male 9:32 AM EST Gender Identity Male 10/20/2024 8:00 AM EST Sexual Orientation Not on file Obstetrics History Last Filed [...] patient's age to complete this topic Meningococcal B Vacine Aged Out No lo nger eligible based on patient's age to complete [...] the nipple. Clinical correlation is recommended. [employer] PA ([id number]) -------- FINAL REPORT -------- Dictated By: Alice Alatorre Dictated Date: 10/20/2024 13:04 ET Assigned Physician: Alice Alatorre Reviewed and Electronically Signed By: Alice Alatorre Signed Date: 10/20/2024 13:27 ET Workstation ID: [id number] Transcribed By: Self Edit Transcribed Date: 10/20/2024 [...] injection which was uneventful. DLP: 892.09 mGy/cm [employer] VCT Iterative reconstruction technique Findings: There is [...] second injection which wasuneventful. DLP: 892.09 mGy/cm [employer] VCT Iterative reconstruction technique Findings: There is [...] nipple. Clinical correlation is recommended. [employer] TRACI ([id number]) -------- FINAL REPORT -------- Dictated By: Alice Alatorre Dictated Date: 10/20/2024 13:04 ET Assigned Physician: Alice Alatorre Reviewed and Electronically Signed By: Alice Alatorre Signed Date: 10/20/2024 13:27 ET Workstation ID: [id number] Transcribed By: Self Edit Transcribed Date: 10/20/2024 13:04 ET us Demarco Stoddard MD IMG CT PROCEDURES Final R esult * Troponin I high sensitivity (10/20/2024 1:42 AM EST) Only the most recent of2 resultswithin the time period is included. High Sensitivity Troponin I 4 <=79 ng/L LAB CHEMISTRY METHOD 10/20/2024 2:39 AM EST [facility] Blood Venous blood specimen / Unknown Venipuncture / Unknown 10/20/2024 1:42 AM EST 10/20/2024 2:03 AM EST Narrative [facility] - 10/20/2024 2:39 AM EST High levels of biotin in samples may falsely decrease hsTroponin values. ??Use caution when interpreting hsTroponin results in patients taking biotin who exhibit renal impairment (eGFR <60) or in patients taking more than 20 mg/day of biotin. us Leoncio Sandoval MD LAB BLOOD ORDERABLES Final Resu lt [facility] [address] [place] [address], [place] [phone] * ECG 12 lead (10/20/2024 1:41 AM EST) Only the most recent of2 resultswithin the time period is included. Ventricular Rate ECG 62 BPM GEMUSE Atrial Rate 62 BPM GEMUSE P-R Interval 148 ms GEMUSE QRS Duration 94 ms GEMUSE Q-T Interval 408 ms GEMUSE QTc 414 ms GEMUSE P Wave [place] 63 degrees GEMUSE R [place] -14 degrees GEMUSE T [place] 19 degrees GEMUSE ECG Interpretation Normal sinus rhythm Normal ECG When compared with ECG of 20-OCT-2024 00:21, No significant change was found Confirmed by BARBIE JARAMILLO ([id number]) on 10/20/2024 8:16:32 PM GEMUSE 10/20/2024 1:41 AM EST 10/20/2024 8:16 PM EST us Leoncio Sandoval MD ECG ORDERABLES Final Result GEMUSE * XR Chest 2 Views (10/20/2024 1:12 AM EST) Anatomical Region Laterality Modality Body Radiographic Marilin ging 10/20/2024 7:08 AM EST Impressions 10/20/2024 7:10 AM EST No pneumonia or edema. -------- FINAL REPORT -------- Dictated By: Guillermo Irizarry Dictated Date: 10/20/2024 07:08 ET Assigned Physician: Guillermo Irizarry Reviewed and Electronically Signed By: Guillermo Irizarry Signed Date: 10/20/2024 07:10 ET Workstation ID: [id number] Transcribed By: Self Edit Transcribed Date: 10/20/2024 [...] Signed Date: 10/20/2024 07:10 ET Workstation ID: [id number] Transcribed By: Self Edit Transcribed Date: 10/20/2024 07:08 ET Leoncio Sandoval MD IMG XR PROCEDURES Final Result * (ABNORMAL) CBC auto differential (10/20/2024 12:23 AM EST) WBC 8.3 4.8 - 10.8 K/mcL LAB HEMETOLOGY METHOD 10/20/2024 12:46 AM [facility] RBC 4.30(L) 4.50 - 5.50 M/mcL LAB HEMETOLOGY METHOD 10/20/2024 12:46 AM [facility] Hemoglobin 14.0 13.5 - 17.5 g/dL LAB HEMETOLOGY METHOD 10/20/2024 12:46 AM [facility] Hematocrit 42.0 42.0 - 54.0 % LAB HEMETOLOGY METHOD 10/20/2024 12:46 AM [facility] MCV 98.6(H) 79.0 - 98.0 FL LAB HEMETOLOGY METHOD 10/20/2024 12:46 AM [facility] MCH 32.9(H) 27.0 - 32.0 pcg LAB HEMETOLOGY METHOD 10/20/2024 12:46 AM [facility] MCHC 33.3 32.0 - 37.0 g/dL LAB HEMETOLOGY METHOD 10/20/2024 12:46 AM [facility] RDW 13.4 11.0 - 15.0 % LAB HEMETOLOGY METHOD 10/20/2024 12:46 AM [facility] Platelets 250 130 - 400 K/mcL LAB HEMETOLOGY METHOD 10/20/2024 12:46 AM [facility] MPV 10.3 7.0 - 11.0 FL LAB HEMETOLOGY METHOD 10/20/2024 12:46 AM [facility] NRBC 0.0 <1.0 % LAB HEMETOLOGY METHOD 10/20/2024 12:46 AM [facility] NRBC Absolute 0.00 <0.10 K/mcL LAB HEMETOLOGY METHOD 10/20/2024 12:46 AM [facility] Neutrophils Relative 62.9 % LAB HEMETOLOGY METHOD 10/20/2024 12:46 AM [facility] Lymphocytes Relative 30.5 % LAB HEMETOLOGY METHOD 10/20/2024 12:46 AM [facility] Monocytes Relative 5.3 % LAB HEMETOLOGY METHOD 10/20/2024 12:46 AM [facility] Eosinophils Relative 0.5 % LAB HEMETOLOGY METHOD 10/20/2024 12:46 AM [facility] Basophils Relative 0.4 % LAB HEMETOLOGY METHOD 10/20/2024 12:46 AM [facility] Immature Granulocytes Relative 0.4 % LAB HEMETOLOGY METHOD 10/20/2024 12:46 AM [facility] Neutrophils Absolute 5.22 1.50 - 7.00 K/mcL LAB HEMETOLOGY METHOD 10/20/2024 12:46 AM EST [facility] Lymphocytes Absolute 2.53 1.00 - 5.00 K/mcL LAB HEMETOLOGY METHOD 10/20/2024 12:46 AM EST [facility] Monocytes Absolute 0.44 0.20 - 1.00 K/mcL LAB HEMETOLOGY METHOD 10/20/2024 12:46 AM EST [facility] Eosinophils Absolute 0.04 0.00 - 0.50 K/[facility] LAB HEMETOLOGY METHOD 10/20/2024 12:46 AM EST [facility] Basophils Absolute 0.03 0.00 - 0.20 K/[facility] LAB HEMETOLOGY METHOD 10/20/2024 12:46 AM [facility] Immature Granulocytes Absolute 0.03 0.00 - 0.03 K/mcL LAB HEMETOLOGY METHOD 10/20/2024 12:46 AM EST [facility] Blood Venous blood specimen / Unknown Venipuncture / Unknown 10/20/2024 12:23 AM EST 10/20/2024 12:41 AM EST us Leoncio Sandoval MD LAB BLOOD ORDERABLES Final Resu lt [facility] [address] [place] [address], * B-type natriuretic peptide (10/20/2024 12:23 AM EST) BNP 35 <=100 pcg/mL LAB CHEMISTRY METHOD 10/20/2024 1:15 AM EST [facility] Blood Venous blood specimen / Unknown Venipuncture / Unknown 10/20/2024 12:23 AM EST 10/20/2024 12:41 AM EST us Leoncio Sandoval MD LAB BLOOD ORDERABLES Final Resu lt [facility] [address] [place] [address], [place] [phone] * (ABNORMAL) Magnesium (10/20/2024 12:23 AM EST) [facility] Magnesium 1.8(L) 1.9 - 2.6 mg/dL LAB CHEMISTRY METHOD 10/20/2024 1:09 AM EST [facility] Blood Venous blood specimen / Unknown Venipuncture / Unknown 10/20/2024 12:23 AM EST 10/20/2024 12:40 AM EST us Leoncio Sandoval MD LAB BLOOD ORDERABLES Final Resu lt Performing Organization Address [facility]/ZIP Co de Phone Number [facility] [address] [place] [address], [place] [phone] * (ABNORMAL) Lipase (10/20/2024 12:23 AM EST) [facility] Lipase 11(L) 13 - 75 unit/L LAB CHEMISTRY METHOD 10/20/2024 1:09 AM EST [facility] Blood Venous blood specimen / Unknown Venipuncture / Unknown 10/20/2024 12:23 AM EST 10/20/2024 12:40 AM EST Leoncio Sandoval MD LAB BLOOD ORDERABLES Final Resu lt [facility] [address] [place] [address], [place] [phone] * Comprehensive metabolic panel (10/20/2024 12:23 AM EST) [facility] Sodium 138 133 - 145 mmol/L LAB CHEMISTRY METHOD 10/20/2024 1:09 AM EST [facility] Potassium 4.3 3.5 - 5.5 mmol/L LAB CHEMISTRY METHOD 10/20/2024 1:09 AM EST [facility] Chloride 105 96 - 110 mmol/L LAB CHEMISTRY METHOD 10/20/2024 1:09 AM [facility] CO2 29 21 - 32 mmol/L LAB CHEMISTRY METHOD 10/20/2024 1:09 AM [facility] Anion Gap 4 3 - 11 LAB CHEMISTRY METHOD 10/20/2024 1:09 AM [facility] Glucose 94 70 - 100 mg/dL LAB CHEMISTRY METHOD 10/20/2024 1:09 AM [facility] BUN 8 5 - 25 mg/dL LAB CHEMISTRY METHOD 10/20/2024 1:09 AM [facility] Creatinine 0.80 0.70 - 1.30 mg/dL LAB CHEMISTRY METHOD 10/20/2024 1:09 AM [facility] eGFR 115 >=60 mL/min/1. 73m2 LAB CHEMISTRY METHOD 10/20/2024 1:09 AM [facility] Comment:Calculation based on the??Chronic Kidney Disease Epidemiology Collaboration (CKD-EPI) equation refit??without adjustment for race. BUN/Creatinine Ratio 10.0 LAB CHEMISTRY METHOD 10/20/2024 1:09 AM [facility] Calcium 9.1 8.5 - 10.5 mg/dL LAB CHEMISTRY METHOD 10/20/2024 1:09 AM [facility] AST (SGOT) 12 10 - 42 unit/L LAB CHEMISTRY METHOD 10/20/2024 1:09 AM [facility] ALT (SGPT) 15 10 - 60 unit/L LAB CHEMISTRY METHOD 10/20/2024 1:09 AM [facility] Alkaline Phosphatase 89 42 - 121 unit/L LAB CHEMISTRY METHOD 10/20/2024 1:09 AM [facility] Total Protein 7.4 6.0 - 8.0 g/dL LAB CHEMISTRY METHOD 10/20/2024 1:09 AM [facility] Albumin 3.3 3.2 - 5.0 g/dL LAB CHEMISTRY METHOD 10/20/2024 1:09 AM EST [facility] Total Bilirubin 0.4 0.0 - 1.4 mg/dL LAB CHEMISTRY METHOD 10/20/2024 1:09 AM EST [facility] Blood Venous blood specimen / Unknown Venipuncture / Unknown 10/20/2024 12:23 AM EST 10/20/2024 12:40 AM EST Leoncio Sandoval MD LAB BLOOD ORDERABLES Final Resu lt [facility]) [facility] [address] [place] [address], * ECG-Outside (10/20/2024) Provider Onbase MD ECG ORDERABLES Final Result * ECG-Annotated (10/20/2024) Only the most recent of2 resultswithin the time period is included. Provider Onbase MD ECG ORDERABLES Final Result from Last 3 Months Insurance MEDICAID - [place] Care Teams Custody Officer Relationship Specialty Start Date End Date Evy Maria MD [address] [place] [phone] PCP - General Internal Medicine 09/22/18
--- OUTSIDE RECORDS SUMMARY | 2024-12-10 07:11 | XMS_ITS | Clinical Summary ---
Author Organization [facility] Address [address] [place] [address] Care Team Providers Care Hop Sorter Name Role Phone Unavailable Primary Care Provider [...] by mouth every morning before breakfast Active folic acid (FOLVITE) 1 mg tablet Take 1 mg by mouth daily 4 Active prazosin (MINIPRESS) 1 mg capsule Take 3 Capsules by mouth 3 (three) times daily 90 Capsule 5 Active sertraline (ZOLOFT) 100 mg tablet Take 1 Tablet by mouth once daily 90 Tablet 5 Active OLANZapine (ZYPREXA) 10 mg tabletIndicatio ns:PTSD (post-traumatic stress disorder),Moder ate episode of recurrent major depressive disorder (HCC-CMS) Take 1 Tablet by mouth nightly at bedtime 90 Tablet 5 Active cyclobenzaprine (FLEXERIL) 5 mg tablet Take 5 mg by mouth 2 (two) times daily as needed 4 11/24/19 Discontinu ed(Therapy completed/ Not needed) nicotine (NICOTROL) 10 mg inhalerIndicati ons:Smoker Inhale 1 Puff into the lungs as needed for smoking cessation 10 Each 1 4 11/24/19 25 Discontinu ed(Not on Formulary) OLANZapine (ZYPREXA) 10 mg tabletIndicatio ns:PTSD (post-traumatic stress disorder),Moder ate episode of recurrent major depressive disorder (HCC-CMS) Take 1 Tablet by mouth nightly at bedtime 30 Tablet 1 5 12/08/19 25 Discontinu ed(Reorder (E-Cancel Not Sent)) sertraline (ZOLOFT) 100 mg tabletIndicatio ns:PTSD (post-traumatic stress disorder),Moder ate episode of recurrent major depressive disorder (HCC-CMS),KRISTA (generalized anxiety disorder) Take 1 Tablet by mouth once daily 30 Tablet 1 5 11/24/19 25 Discontinu ed(Quantit y/Dosage and/or Sig change) sertraline (ZOLOFT) 50 mg tabletIndicatio ns:Moderate episode of recurrent major depressive disorder (HCC-CMS),KRISTA (generalized anxiety disorder),PTSD (post-traumatic stress disorder) Take 1 Tablet by mouth once daily 90 Tablet 1 5 12/08/19 25 Discontinu ed(Duplica te (E-Cancel Not Sent)) prazosin (MINIPRESS) 1 mg capsuleIndicati ons:KRISTA (generalized anxiety disorder),PTSD (post-traumatic stress disorder) Take 1 Capsule by mouth nightly at bedtime 30 Capsule 5 12/08/19 25 Discontinu ed(Duplica te (E-Cancel Not Sent)) Active Problems Problem Noted Date Diagnosed Date Concussion 09/25/2024 Impaired glucose tolerance 09/25/2024 Overview (09/25/2024): pt lost 125 lbs, A1c 6.0 or under since 01/2008 Social phobia 09/25/2024 Acute pain of right knee 09/17/2024 Unstable right knee 09/17/2024 Homeless 08/20/2024 Moderate episode of recurren t major depressive disorder (HCC-CMS) 08/20/2024 Assessment & Plan (11/26/2024 7:50 AM EST): A: denies current depressed mood. Reports anxiety. Plan: olanzapine 10 mg po qhs, sertraline 150 mg qam, Assessment & Plan (11/10/2024 8:28 AM EST): [...] (generalized anxiety disorder) 08/20/2024 Assessment & Plan (11/26/2024 7:50 AM EST): A: +anxiety P: increase sertraline to 150 mg qam, continue olanzapine 10 mg po qhs. Assessment & Plan (11/10/2024 8:28 AM EST): [...] (post-traumatic stress disorder) 08/20/2024 Assessment & Plan (11/26/2024 7:51 AM EST): A: meets criteria for PTSD, remains symptomatic though with some improvement in sleep onset. PLAN: continue olanzapine to 10 mg po qhs for mood, sleep; continue sertraline and increase to 150 mg qam, trial prazosin for sleep and nightmares. refer to therapy. Assessment & Plan (11/10/2024 8:27 AM EST): [...] P: start sertraline, refer to therapy. 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 Bilirubin in urine 08/19/2024 Blood in urine 08/19/2024 Opioid dependence ([facility]) 08/19/2024 UTI symptoms 08/19/2024 Unintentional weight loss 07/22/2024 Herpes zoster without complication 07/17/2024 Epigastric pain 07/17/2024 History of cholecystectomy 10/01/2023 Obstructive sleep apnea 09/30/2023 Generalized abdominal pain 09/02/2023 Abdominal wall seroma 07/31/2023 Dermatitis 06/13/2023 Scalp pruritus 06/13/2023 Open chest wound 05/23/2023 Dyspnea on exertion 03/25/2023 Acute pulmonary embolism wit hout acute cor pulmonale ([facility]) 01/02/2023 Cellulitis of chest wall 10/18/2022 Chronic congestive heart failure ([facility]) 10/18 Class 3 severe obesity due t o excess calories with serious comorbidity and body mass index (BMI) of 50.0 to 59.9 in adult ([facility]) 10/18/2022 Essential hypertension 10/18/2022 Folliculitis 10/18/2022 Smoker 10/18/2022 Encounters Date Type Department Care Team Description 12/08/2024 8:00 AM EST Behavioral Health Visit [facility] [address] [place] [address] [place] [phone] Reed Smith PMHNP PTSD (post-traumatic stress disorder); Moderate episode of recurrent major depressive disorder (HCC-CMS) 11/24/2024 10:00 AM EST Behavioral Health Visit [facility] [address] [place] [phone] Reed Smith PMHNP Moderate episode of recurrent major depressive disorder ([facility]) (Primary Dx); KRISTA (generalized anxiety disorder); PTSD (post-traumatic stress disorder) 11/10/2024 8:00 AM EST Behavioral Health Visit [facility] [address] [place] [phone] Reed Smith, PMHNP PTSD (post-traumatic stress disorder) (Primary Dx); Alcoholic (HCC-CMS); Moderate episode of recurrent major depressive disorder (HCC-CMS); KRISTA (generalized anxiety disorder) 10/27/2024 8:00 AM EST Behavioral Health Visit [facility] [address] [place] [phone] Reed Smith, PMHNP PTSD (post-traumatic stress disorder) (Primary Dx); Moderate episode of recurrent major depressive disorder (HCC-CMS); KRISTA (generalized anxiety disorder) 10/27/2024 / TELEPHONE [facility] [address] [place] [phone] Reed Smith, PMHNP 10/02/2024 9:15 AM EST / Visits [address] [place] [phone] Reed Smith, PMHNP KRISTA (generalized anxiety disorder) (Primary Dx); PTSD (post-traumatic stress disorder); Moderate episode of recurrent major depressive disorder (HCC-CMS); Smoker 09/29/2024 9:30 AM EST Behavioral Health Visit [facility] [address] [place] [address] [place] [phone] Reed Smith, PMHNP Moderate episode of recurrent major depressive disorder (HCC-CMS) (Primary Dx); KRISTA (generalized anxiety disorder) 09/29/2024 BH/[facility] TELEPHONE [address] [place] [address] Reed Smith, PMHNP 09/22/2024 8:30 AM EST Behavioral Health Visit [facility] [address] [place] [address] [place] [phone] Reed Smith, PMHNP Moderate episode of recurrent major depressive disorder (HCC-CMS) (Primary Dx); PTSD (post-traumatic stress disorder) 09/15/2024 10:00 AM EST Behavioral Health Visit [facility] [address] [place] [phone] Reed Smith PMHNP PTSD (post-traumatic stress disorder) [...] Upcoming Encounters Date Type Department Care Team ([facility] st Contact Info) Description 12/22/2024 8:00 AM EDT Behavioral Health Visit [facility] [address] [place], [place] [phone] Reed Smith PMHNP [address] [place] [phone] Health Maintenance Due Date Last Done Comments Depression Monitoring 1984 Hepatitis C Screening 1984 Imm-Pneumococcal (2 of 2 - PCV) 05/17/2009 8, 09/25/2007 Diabetes Screening 01/27/2022 01/27/2021 HIV Screening 01/27/2022 01/27/2021, 01/27/2021 Lipid Screening 01/27/2022 01/27/2021 [id number] ( season) 2024 021, 02/06/2021 Alcohol and Drug Screen 10/14/2024 Tobacco Cessation Counseling (#1) 09/15/2025 Imm-DTaP/Tdap/Td (2 - Td or Tdap) 03/30/2028 018, 05/17/2008 Imm-Hepatitis A Completed 10/12/2008, 04/13, 03/03/2008 Imm-Hepatitis B Completed 10/12/2008, 04/13, 03/03/2008, Additional history exists Imm-Influenza Completed 07/22/2024, 08/15, 07/28/2014, Additional history exists Insurance [facility] MEDICAID
--- OUTSIDE RECORDS SUMMARY | 2024-12-10 07:11 | XMS_ITS | Encounter Summary ---
Author Organization [employer] Address [address] [facility] 7 [place] [address] Care Team Providers Care Shirt Ironer Name Role Phone Kacie Caceres MD Primary Care Provide r Encounter Details Date Type Department Care Team (Late Contact Info) Description 12/26/2022 Telephone [facility] [address] [place] [address] [phone] Kacie Caceres MD [address] [place] [address] [phone] Social History Tobacco Use Types Packs/Day Years [...] 9:15 AM EDT Office Visit [facility] [address] [place] [phone] Kacie Caceres MD [address] [place] [address] [phone] 01/01/2025 9:30 AM EDT Office Visit [facility] [address] [place] [phone] Pam Pablo MD [address] [place] [phone] documented as of this encounter Visit Diagnoses Not on filedocumented in this encounter Care Teams Shirt Ironer Relationship Specialty Start Date End Date Kacie Caceres MD [address] [place] [address] PCP - General Family Medicine 01/27/21 Stacey Renae Park Warden 07/24/23 10/24/23 documented as of this encounter
--- OUTSIDE RECORDS SUMMARY | 2024-12-10 07:11 | XMS_ITS | Encounter Summary ---
Author Organization [employer] [facility] Address [address] [place] [address] [address] [place] [address] Care Team Providers Care Ring Sewer Name Role Phone Kacie Caceres MD Primary Care Provide r Reason for Visit * Reason Comments Med Change Request Encounter Details Date Type Department Care Team (Late Contact Info) Description 01/04/2023 Refill [facility] [address] [place] [phone] [phone] Vannesa Lama MD [address] [place] [address] [phone] Smoker Social History Tobacco Use Types Packs/Day [...] Description 12/29/2024 9:15 AM EDT Office Visit [facility] [address] [place] [address] [phone] Kacie Caceres MD [address] [place] [address] 01/01/2025 9:30 AM EDT Office Visit [facility] [address] [place] [address] [phone] Pam Pablo MD [address] [place] [address] documented as of this encounter Visit Diagnoses Diagnosis Smoker Tobacco use disorder documented in this encounter Care Teams Ring Sewer Relationship Specialty Start Date End Date Kacie Caceres MD [address] [place] [phone] PCP - General Family Medicine 01/27/21 Stacey Renae Patient Experience Coordinator 07/24/23 10/24/23 documented as of this encounter
--- OUTSIDE RECORDS SUMMARY | 2024-12-10 07:11 | XMS_ITS | Clinical Summary ---
Author Organization [facility] Address [address] [place] [address] Care Team Providers Care Bolt Threader Name Role Phone Evy Maria MD Primary Care Provider [phone] Allergies No known active allergies Medications No [...] of Treatment Not on file Care Teams Bolt Threader Relationship Specialty Start Date End Date Evy Maria MD [address] [place] [phone] PCP - General Internal Medicine 09/22/18
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
--- OUTSIDE RECORDS SUMMARY | 2024-12-10 07:12 | XMS_ITS | Encounter Summary ---
Author Organization [employer] Address 75 [facility] 7t [place] [address] Care Team Providers Care Tile Applicator Name Role Phone Kacie Caceres MD Primary Care Provide r Reason for Visit * Reason Comments Med Refill Encounter Details Date Type Department Care Team ([facility] st Contact Info) Description 09/17/2024 Refill [facility] WALK[facility]ENTER 230 [place], [place] [phone] Kacie Caceres MD 230 [place], [place] [phone] UTI symptoms Social History Tobacco Use Types [...] is your housing situation today? I have iwlton klein 07/30/[address] you [...] Description 12/29/2024 9:15 AM EDT Office Visit [facility] MEDICINE [address] [place] [address] 60[address] Kacie Caceres MD [address] [place] [address] 01/01/2025 9:30 AM EDT Office Visit [facility] MEDICINE [address] [place] [address] 80202 Pam Pablo MD [address] [place] [address] 369[address] documented as of this encounter Visit Diagnoses Diagnosis UTI symptoms documented in this encounter Additional Health Concerns Assessment Noted Time PHQ-9 Depression Total Score: 18 024 8:12 AM EST documented as of this encounter Care Teams Tile Applicator Relationship Specialty Start Date End Date Kacie Caceres MD [address] [place] [address] [phone] PCP - General Family Medicine 01/27/21 documented as of this encounter
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
--- OUTSIDE RECORDS SUMMARY | 2024-12-10 07:12 | XMS_ITS | Encounter Summary ---
Author Organization [employer] Address 75 [facility] 7t [place] [address] Care Team Providers Care Railroad Car Letterer Name Role Phone Kacie Caceres MD Primary Care Provide r Encounter Details Date Type Department Care Team (Late st Contact Info) Description 12/08/2024 Orders Only [facility] MEDICINE 230 [place], [place] [phone] Kacie Caceres MD 230 [place], [place] [phone] Mood disorder (CMS/HCC) (Primary Dx) Social History Tobacco Use Types [...] 9:15 AM EDT Office Visit [facility] MEDICINE [address] [place] [address] 24530 Kacie Caceres MD [address] [place] [address] 9[address] 01/01/2025 9:30 AM EDT Office Visit [facility] MEDICINE [address] [place] [address] 35115 Pam Pablo MD [address] [place] [address] 5[address] Scheduled Orders Name Type Priority Associated Diagnoses Orde r Schedule Vitamin D, 25-Hydroxy, Total, Immunoassay Lab Routine Mood disorder (CMS/HCC) Expected: 12/08/2024 (Approximate), Expires: 12/08/2025 TSH W/Reflex to FT4 Lab Routine Mood disorder (CMS/HCC) Expected: 12/08/2024 (Approximate), Expires: 12/08/2025 documented as of this encounter Visit Diagnoses Diagnosis Mood disorder (CMS/HCC)- Primary Unspecified episodic mood disorder documented in this encounter Additional Health Concerns Assessment Noted Time PHQ-9 Depression Total Score: 18 024 8:12 AM EST documented as of this encounter Care Teams Railroad Car Letterer Relationship Specialty Start Date End Date Kacie Caceres MD 230 [place] [address] PCP - General Family Medicine 01/27/21 documented as of this encounter
--- OUTSIDE RECORDS SUMMARY | 2024-12-10 07:12 | XMS_ITS | Encounter Summary ---
Author Organization [employer] Address 75 [facility] 7t [place] [address] Care Team Providers Care Network Support Specialist Name Role Phone Kacie Caceres MD Primary Care Provide r Encounter Details Date Type Department Care Team (Late st Contact Info) Description 09/16/2023 Abstract [facility] MEDICINE 230 [place], [place] [phone] Vannesa Lama MD 230 [place], [place] [phone] Social History Tobacco Use Types Packs/Day Years [...] Description 12/29/2024 9:15 AM EDT Office Visit [facility] MEDICINE [address] [place] [address] Kacie Caceres MD [address] [place] [address] 7[address] 01/01/2025 9:30 AM EDT Office Visit [facility] MEDICINE [address] [place] [address] 34944 Pam Pablo MD [address] [place] [address] 79[address] documented as of this encounter Visit Diagnoses Not on filedocumented in this encounter Care Teams Network Support Specialist Relationship Specialty Start Date End Date Kacie Caceres MD [address] [place] [address] [phone] PCP - General Family Medicine 01/27/21 Stacey Renae Capital Campaign Fundraiser 07/24/23 10/24/23 documented as of this encounter
--- OUTSIDE RECORDS SUMMARY | 2024-12-10 07:12 | XMS_ITS | Encounter Summary ---
Author Organization [employer] Address 75 [facility] 7 [place] [address] Care Team Providers Care Auto Motor Mechanic Name Role Phone Kacie Caceres MD Primary Care Provide r Reason for Visit * Reason Onset Date Comments Hospital Follow-up 08/13/2024 Encounter Details Date Type Department Care Team ([facility] st Contact Info) Description 08/13/2024 Telephone [facility] MEDICINE 230 [place], [place] [phone] Kacie Caceres MD 230 [place], [place] [phone] Hospital Follow-up Social History Tobacco Use Types [...] from pt requesting a HDF appt. Hospital: [facility] Date of admission: 08/06/24 Discharge date: 08/12/24 Diagnosed: Gastric Polyp documented in this encounter Plan of Treatment Upcoming Encounters Date Type Department Care Team (Late st Contact Info) Description 12/29/2024 9:15 AM EDT Office Visit [facility] MEDICINE [address] [place] [address] 99[address] Kacie Caceres MD [address] [place] [address] 335[address] 01/01/2025 9:30 AM EDT Office Visit [facility] MEDICINE [address] [place] [address] 9[address] Pam Pablo MD [address] [place] [address] 09[address] documented as of this encounter Visit Diagnoses Not on filedocumented in this encounter Additional Health Concerns Assessment Noted Time PHQ-9 Depression Total Score: 0 07/22/20 9:18 AM EDT documented as of this encounter Care Teams Auto Motor Mechanic Relationship Specialty Start Date End Date Kacie Caceres MD 230 [place] [address] PCP - General Family Medicine 01/27/21 documented as of this encounter
--- OUTSIDE RECORDS SUMMARY | 2024-12-10 07:12 | XMS_ITS | Encounter Summary ---
Author Organization [employer] Address 75 [facility] 7 [place] [address] Care Team Providers Care Marine Steam Fitter Name Role Phone Kacie Caceres MD Primary Care Provide r Reason for Visit * Reason Onset Date Comments Care Coordination 12/08/2024 C3CM f/u call- LVM Encounter Details Date Type Department Care Team ([facility] Contact Info) Description 12/08/2024 Telephone [facility] CHC MED & PEDS [address] [place] [address] Tesha Jolley RN [address] [place] [address] Care Coordination (C3CM f/u call- LVM) Social History Tobacco Use Types Packs/Day Years [...] Telephone Encounter - Tesha Jolley RN - 12/08/2024 3:[address] an order for Vit D and Thyroid requested by pt's psych and CM will reach out to pt to get labs done. Thank you. documented in this encounter Plan of Treatment Upcoming Encounters Date Type Department Care Team (Late st Contact Info) Description 12/29/2024 9:15 AM EDT Office Visit [facility] MEDICINE [address] [place] [phone] Kacie Caceres MD [address] [place] [address] [phone] 01/01/2025 9:30 AM EDT Office Visit [facility] MEDICINE [address] [place] [address] 49605 Pam Pablo MD [address] [place] [address] [phone] documented as of this encounter Visit Diagnoses Not on filedocumented in this encounter Additional Health Concerns Assessment Noted Time PHQ-9 Depression Total Score: 18 024 8:12 AM EST documented as of this encounter Care Teams Marine Steam Fitter Relationship Specialty Start Date End Date Kacie Caceres MD 230 [place] [address] PCP - General Family Medicine 01/27/21 documented as of this encounter
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
--- OUTSIDE RECORDS SUMMARY | 2024-12-10 07:12 | XMS_ITS | Encounter Summary ---
Author Organization [employer] Address 75 [facility] 7 [place] [address] Care Team Providers Care Food Critic Name Role Phone Kacie Caceres MD Primary Care Provide r Reason for Visit * Reason Onset Date Comments Med Change Request Med Refill 10/19/[address] Her palacios task. Pt would like to come to [facility] pharmacy to get the Nicotine cartridges. [place] will notify Dr. Pelayo. Encounter Details Date Type Department Care Team ([facility] st Contact Info) Description 10/19/2022 Refill [facility] MEDICINE 230 [place], [place] [phone] Alaina Pelayo MD 230 [place] [address] Smoker Social History Tobacco Use Types Packs/Day [...] task. Pt would like to come to [facility] pharmacy to get the Nicotine cartridges. [place] will notify Dr. Pelayo. documented in this encounter Plan of Treatment Upcoming Encounters Date Type Department Care Team (Late st Contact Info) Description 12/29/2024 9:15 AM EDT Office Visit [facility] MEDICINE [address] [place] [address] Kacie Caceres MD [address] [place] [address] 12908 01/01/2025 9:30 AM EDT Office Visit [facility] MEDICINE [address] [place] [address] 40035 Pam Pablo MD [address] [place] [address] [phone] documented as of this encounter Visit Diagnoses Diagnosis Smoker Tobacco use disorder documented in this encounter Care Teams Food Critic Relationship Specialty Start Date End Date Kacie Caceres MD [address] [place] [address] PCP - General Family Medicine 01/27/21 Stacey Renae Guest Experience Manager 07/24/23 10/24/23 documented as of this encounter
--- OUTSIDE RECORDS SUMMARY | 2024-12-10 07:12 | XMS_ITS | Encounter Summary ---
Author Organization [employer] Address 75 [facility] 7t [place] [address] Care Team Providers Care Bankruptcy Assistant Name Role Phone Kacie Caceres MD Primary Care Provide r Encounter Details Date Type Department Care Team (Late st Contact Info) Description 10/28/2024 Orders Only [facility] MEDICINE 230 [place], [place] [phone] Kacie Caceres MD 230 [place], [place] [phone] Social History Tobacco Use Types Packs/Day Years [...] Description 12/29/2024 9:15 AM EDT Office Visit [facility] MEDICINE [address] [place] [phone] Kacie Caceres MD 230 [place] [address] 01/01/2025 9:30 AM EDT Office Visit [facility] MEDICINE [address] [place] [address] [phone] Pam Pablo MD [address] [place] [phone] documented as of this encounter Visit Diagnoses Not on filedocumented in this encounter Additional Health Concerns Assessment Noted Time PHQ-9 Depression Total Score: 18 024 8:12 AM EST documented as of this encounter Care Teams Bankruptcy Assistant Relationship Specialty Start Date End Date Kacie Caceres MD [address] [place] [address] [phone] PCP - General Family Medicine 01/27/21 documented as of this encounter
--- OUTSIDE RECORDS SUMMARY | 2024-12-10 07:12 | XMS_ITS | Encounter Summary ---
Author Organization [employer] Address 75 [facility] 7t [place] [address] Care Team Providers Care Engineering Operations Leader Name Role Phone Kacie Caceres MD Primary Care Provide r Reason for Visit * Reason Comments Care Coordination Outreach Encounter Details Date Type Department Care Team (Latest Contact Info) Description 12/09/[address] [facility] CHC MED & PEDS [address] [place] [address] Kacie Caceres MD 230 [place] [address] Care Coordination (Outreach) Social History Tobacco Use [...] encounter Progress Notes * Jacqueline Galarza - 12/09/2024 8:51 AM EST CHW Jacqueline Galarza placed outbound call to patient for follow up call on SDOH needs. No answer at this time. LVM introducing herself from [facility] CM Department. Requested call back. CHW reinforced direct contact information or CM for any additional questions or concerns and extended clinic hours on Mondays and Wednesdays, and Walk-In Urgent Care Located in [facility]. Patient provided with after-hours line for [facility], , which offer night timetriage service and option to transfer to front office developer provider if needed. CHW will attempt another follow up call within 10 days. documented in this encounter Plan of Treatment Upcoming Encounters Date Type Department Care Team ([facility] st Contact Info) Description 12/29/2024 9:15 AM EDT Office Visit [facility] MEDICINE [address] [place] [address] [phone] Kacie Caceres MD 230 [place] [address] 01/01/2025 9:30 AM EDT Office Visit [facility] MEDICINE [address] [place] [address] 10262 Pam Pablo MD 230 [place] [address] documented as of this encounter Visit Diagnoses Not on filedocumented in this encounter Additional Health Concerns Assessment Noted Time PHQ-9 Depression Total Score: 18 024 8:12 AM EST documented as of this encounter Care Teams Engineering Operations Leader Relationship Specialty Start Date End Date Kacie Caceres MD 230 [place] [address] PCP - General Family Medicine 01/27/21 documented as of this encounter
--- OUTSIDE RECORDS SUMMARY | 2024-12-10 07:12 | XMS_ITS | Encounter Summary ---
Author Organization [facility] Address [address] [place] [address] Care Team Providers Care Plastic Card Grader Cardroom Name Role Phone Unavailable Primary Care Provider Unavailabl e Reason for Visit * Reason Comments Behavioral Health Medication Management Encounter Details Date Type Department Care Team (Latest Contact Info) Description 11/24/2024 10:00 AM EST Behavioral Health Visit [facility] [address] [place] [phone] Reed Tan, HNP 20 [facility] [place] [phone] Moderate episode of recurrent major depressive disorder (HCC-CMS) (Primary Dx); KRISTA (generalized anxiety disorder); PTSD (post-traumatic stress disorder) Social History Tobacco Use Types Packs/Day [...] encounter Progress Notes * FABIEN Chairez - 11/26/2024 7:51 AM ESTAssociated Problem(s): PTSD (post-traumatic stress disorder) A: meets criteria for PTSD, remains symptomatic though with some improvement in sleep onset. PLAN: continue olanzapine to 10 mg po qhs for mood, sleep; continue sertraline and increase to 150 mg qam, trial prazosin for sleep and nightmares. refer to therapy. * AFBIEN Chairez - 11/26/2024 7:50 AM ESTAssociated Problem(s): KRISTA (generalized anxiety disorder) A: +anxiety P: increase sertraline to 150 mg qam, continue olanzapine 10 mg po qhs. * FABIEN Chairez - 11/26/2024 7:50 AM ESTAssociated Problem(s): Moderate episode of recurrent major depressive disorder ([facility]-CMS) A: denies current depressed mood. Reports anxiety. Plan: olanzapine 10 mg po qhs, sertraline 150 mg qam, * FABIEN Chairez - 11/24/2024 10:00 AM EST [facility] OFFICE VISIT Name: Lino Bradley : 1985 PCP: No primary care provider on file. ASSESSMENT AND PLAN Problem List Items Addressed This Visit Moderate episode of recurrent major depressive disorder (HCC-CMS) - Primary A: denies current depressed mood. Reports anxiety. Plan: olanzapine 10 mg po qhs, sertraline 150 mg qam, Relevant Medications sertraline (ZOLOFT) 50 mg tablet KRISTA (generalized anxiety disorder) A: +anxiety P: increase sertraline to 150 mg qam, continue olanzapine 10 mg po qhs. Relevant Medications sertraline (ZOLOFT) 50 mg tablet prazosin (MINIPRESS) 1 mg capsule PTSD (post-traumatic stress disorder) A: meets criteria for PTSD, remains symptomatic though with some improvement in sleep onset. PLAN: continue olanzapine to 10 mg po qhs for mood, sleep; continue sertraline and increase to 150 mg qam, trial prazosin for sleep and nightmares. refer to therapy. Relevant Medications sertraline (ZOLOFT) 50 mg tablet prazosin (MINIPRESS) 1 mg capsule Follow-up: Return in about 2 weeks (around 12/08/2024). REED TAN, PMHNP 11/24/2024 10:02 AM EST REASON FOR VISIT Chief Complaint Patient presents with Behavioral Health Medication Management HPI/ROS Last visit 11/10/24. Nothing has changed. Delayed sleep onset up to 2 hrs. Sleep interrupted q 3-4 hrs. +nightmares most nights. Racing thoughts at night, anxiety. No naps, cup coffee in morning [this is new]. H/o being up for days, then sleeps couple of hours. Sometimes feels over energized, hard time thinking straight. Can last all day, never lasts more than 2 consecutive days. Last time was 2 weeks ago. Anxiety persists. Not depressed or down. Continues to isolate at home. This is typical. Starting new job as [employer], [employer]. Spends time with 17 yo son. Pt has full custody of son, both staying with pt's fa. Appetite improved Nausea after eating. Has to force self to eat. +anxiety. Waiting on GI appt. Pulmonolgy visit, needs blood work. Sleep apnea- waiting for cpap, can take 2-3 mos. PCP 11/20/24- BARRINGTON Galarza. H/o trazodone [did not like], clonidine [ineffective], remeron [ineffective], clonazepam [2017], melatonin, benadryl, hydroxyzine ineffective. Risperdal- ineffective. Seroquel- arms buzz. Ambien, lunesta- ineffective. Sleep study- had sleep apnea but does not use cpap. Feels it was ineffective. Also, has lost a lot of weight and may not need anymore. 10/02 rozerem, olanzapine 7.5 mg qhs poor effect. Increase sertraline to 150 mg qam, continue olanzapine 10 mg po qhs. Denies s/e. Occ cannabis but intensifies racing thoughts- stopped. Tobacco- 4-5 qd down from 1 ppd. PHQ No data to display Review of [...] as otherwise needed. . FABIEN DEL CASTILLO 11/24/2024 documented in this encounter Plan of Treatment Upcoming Encounters Date Type Department Care Team ([facility] Contact Info) Description 12/22/2024 8:00 AM EDT Behavioral Health Visit [facility] [address] [place] [address] [place] [phone] Reed Tan, [facility] [address] [place] [address] [place] [phone] documented as of this encounter Visit Diagnoses Diagnosis Moderate episode of recurrent major depressive disorder ([facility]-CMS)- Primary KRISTA (generalized anxiety disorder) Generalized anxiety disorder PTSD (post-traumatic stress disorder) Posttraumatic stress disorder documented in this encounter
--- OUTSIDE RECORDS SUMMARY | 2024-12-10 07:12 | XMS_ITS | Encounter Summary ---
Author Organization [employer] Address [address] [place] [address] Care Team Providers Care Audio Visual Facilities Engineer Name Role Phone Kacie Caceres MD Primary Care Provide r Reason for Visit * Reason Onset Date Comments Order 11/11/2024 Encounter Details Date Type Department Care Team ([facility] st Contact Info) Description 11/11/2024 Telephone [facility] MEDICINE [address] [place], [place] [phone] Kacie Caceres MD [address] [place], [place] [phone] Order Social History Tobacco Use Types Packs/Day Years [...] encounter Miscellaneous Notes * Telephone Encounter - Anne Dickson RN - 11/12/2024 10:13 AM EST TC placed to patient [phone] to inform patient pulmonology office stated the patient needs to complete the abd US not an echo. Patient was scheduled for abd US on 09/08/24 however no showed. Patient advised he needs to call [facility] CS at [phone] to r/s abd US. Patient verbalized understandingand reports he will call them today. Patient to f/u PRN. * Telephone Encounter - Yaquelin Ocasio RN - 11/11/2024 11:51 AM EST Received incoming phone call from Mel at [facility]mon[facility]. She stated that the pt does not need an ECHO but needs a abdominal ultrasound (US). Pt has outstanding order on file, appt had been scheduled for 09/08/24. Called pt to advise of outstanding abdominal US order and that pulmonology would like this completed, no answer, left voicemail. Plan to give pt number of [facility] Centralized scheduling for pt to schedule appt for ultrasound: [phone]. Will send to PCP as FYI and task to call again. * Telephone Encounter - Yaquelin Ocasio RN - 11/11/2024 11:20 AM EST Returned call to pt who stated that he saw MANAGER HOTEL Chiara Manriquez this morning and she is requesting PCP office to order ECHO. Pt stated he had an ECHO done at some point when he was in/out of the hospital. Per [facility], pt had ECHO 03/25/2023. Dr Manriquez's draft note referenced possible ECHO in 07/2024, no documents in [employer] or [facility] [employer]. Advised pt that [facility] to contact [facility] Pulmonology to clarify request and update would be provided to him. Pt verbalized understanding, in agreement with plan. Called [facility] Pulmon[facility], spoke with Mel, left voicemail to call back with clarification about possible ECHO order. Gave [phone]. Will call back if no answer today. * Telephone Encounter - Natalie Walden - 11/11/2024 10:53 AM EST Tc from pt requesting order for echocardiography. Any questions contact pt. [phone] documented in this encounter Plan of Treatment Upcoming Encounters Date Type Department Care Team (Late st Contact Info) Description 12/29/2024 9:15 AM EDT Office Visit [facility] MED[facility]INE [address] [place] [address] [phone] Kacie Caceres MD [address] [place] [address] 01/01/2025 9:30 AM EDT Office Visit [facility] [address] [place] [address] Pam Pablo MD [address] [place] [address] documented as of this encounter Visit Diagnoses Not on filedocumented in this encounter Additional Health Concerns Assessment Noted Time PHQ-9 Depression Total Score: 18 024 8:12 AM EST documented as of this encounter Care Teams Audio Visual Facilities Engineer Relationship Specialty Start Date End Date Kacie Caceres MD [address] [place] [address] PCP - General Family Medicine 01/27/21 documented as of this encounter
--- OUTSIDE RECORDS SUMMARY | 2024-12-10 07:12 | XMS_ITS | Encounter Summary ---
Author Organization [employer] Address [address] [facility] 7t [place] [address] Care Team Providers Care Business Objects Consultant Name Role Phone Kacie Caceres MD Primary Care Provide r Reason for Visit * Reason Comments Care Coordination Outreach Encounter Details Date Type Department Care Team (Latest Contact Info) Description 11/12/2024 Patient Outreach [facility] MED & PEDS [address] [place] [address] Kacie Caceres MD [address] [place] [address] Care Coordination (Outreach) Social History Tobacco Use [...] encounter Progress Notes * Jacqueline Galarza - 11/12/2024 10:38 AM EST CHW Jacqueline Galarza placed outbound call to patient for follow up call on SDOH needs. No answer at this time. LVM introducing herself from [facility] CM Department. Requested call back. CHW reinforced direct contact information or CM for any additional questions or concerns and extended clinic hours on Mondays and Wednesdays, and Walk-In Urgent Care Located in [facility]. Patient provided with after-hours line for [facility], , which offer night timetriage service and option to transfer to line construction engineer provider if needed. CHW will attempt another follow up call within 10 days. documented in this encounter Plan of Treatment Upcoming Encounters Date Type Department Care Team ([facility] st Contact Info) Description 12/29/2024 9:15 AM EDT Office Visit [facility] MEDICINE [address] [place] [address] [phone] Kacie Caceres MD [address] [place] [address] 01/01/2025 9:30 AM EDT Office Visit [facility] MEDICINE [address] [place] [phone] Pam Pablo MD [address] [place] [address] documented as of this encounter Visit Diagnoses Not on filedocumented in this encounter Additional Health Concerns Assessment Noted Time PHQ-9 Depression Total Score: 18 024 8:12 AM EST documented as of this encounter Care Teams Business Objects Consultant Relationship Specialty Start Date End Date Kacie Caceres MD [address] [place] [address] PCP - General Family Medicine 01/27/21 documented as of this encounter
--- OUTSIDE RECORDS SUMMARY | 2024-12-10 07:12 | XMS_ITS | Encounter Summary ---
Author Organization [email or web address] [facility] Address [address] [facility] [address] [place] [address] Care Team Providers Care Breaker Oiler Name Role Phone Kacie Caceres MD Primary Care Provide r Encounter Details Date Type Department Care Team (Late st Contact Info) Description 10/26/2022 Orders Only [facility] MEDICINE [address] [place] [address] [phone] Alaina Pelayo MD [address] [place] [address] [phone] Smoker (Primary Dx) Social History Tobacco Use [...] Description 12/29/2024 9:15 AM EDT Office Visit [facility] MEDICINE [address] [place] [address] [phone] Kacie Caceres MD [address] [place] [address] [phone] 01/01/2025 9:30 AM EDT Office Visit [facility] MEDICINE [address] [place] [address] Pam Pablo MD [address] [place] [address] documented as of this encounter Visit Diagnoses Diagnosis Smoker- Primary Tobacco use disorder documented in this encounter Care Teams Breaker Oiler Relationship Specialty Start Date End Date Kacie Caceres MD [address] [place] [phone] PCP - General Family Medicine 01/27/21 Stacey Renae Turnstile Attendant 07/24/23 10/24/23 documented as of this encounter
--- OUTSIDE RECORDS SUMMARY | 2024-12-10 07:12 | XMS_ITS | Encounter Summary ---
Author Organization [facility] Address [address] [place] [address] Care Team Providers Care Magento Developer Name Role Phone Unavailable Primary Care Provider Unavailabl e Reason for Visit * Reason Comments Behavioral Health Medication Management Encounter Details Date Type Department Care Team (Latest Contact Info) Description 12/08/2024 8:00 AM EST Behavioral Health Visit [facility] [address] [place] [phone] Reed Smith, HNP [address] [place] [address] [place] [phone] PTSD (post-traumatic stress disorder); Moderate episode of recurrent major depressive disorder ([facility]-CMS) Social History Tobacco Use Types Packs/Day Years [...] Upcoming Encounters Date Type Department Care Team ([facility] st Contact Info) Description 12/22/2024 8:00 AM EDT Behavioral Health Visit [facility] [address] [place] [address] [place] [phone] Reed Smith, PMHNP [address] [place] [address] [place] [phone] documented as of this encounter Visit Diagnoses Diagnosis PTSD (post-traumatic stress disorder) Posttraumatic stress disorder Moderate episode of recurrent major depressive disorder (HCC-CMS) documented in this encounter
--- OUTSIDE RECORDS SUMMARY | 2024-12-10 07:12 | XMS_ITS | Encounter Summary ---
Author Organization [employer] Address [address] [facility] 7t [place] [address] Care Team Providers Care Geothermal System Installer Name Role Phone Kacie Caceres MD Primary Care Provide r Reason for Visit * Reason Comments Care Coordination Outreach Encounter Details Date Type Department Care Team (Latest Contact Info) Description 11/10/2024 Patient Outreach [facility] MED & PEDS [address] [place] [address] Kacie Caceres MD [address] [place] [address] Care Coordination (Outreach) Social History Tobacco Use [...] at this time. LVM introducing herself from [facility] CM Department, reminding patient of appointment on 11/11/24 @ 10:00 AM @ [facility] pul[facility]. Requested call back to or , as well as for any additional questions or concerns. documented in this encounter Plan of Treatment Upcoming Encounters Date Type Department Care Team (Late st Contact Info) Description 12/29/2024 9:15 AM EDT Office Visit [facility] MEDICINE [address] [place] [address] [phone] Kacie Caceres MD [address] [place] [phone] 01/01/2025 9:30 AM EDT Office Visit [facility] MEDICINE [address] [place] [address] [phone] Pam Pablo MD [address] [place] [phone] documented as of this encounter Visit Diagnoses Not on filedocumented in this encounter Additional Health Concerns Assessment Noted Time PHQ-9 Depression Total Score: 18 024 8:12 AM EST documented as of this encounter Care Teams Geothermal System Installer Relationship Specialty Start Date End Date Kacie Caceres MD [address] [place] [address] PCP - General Family Medicine 01/27/21 documented as of this encounter
--- OUTSIDE RECORDS SUMMARY | 2024-12-10 07:12 | XMS_ITS | Encounter Summary ---
Author Organization [employer] Address [address] [facility] 7 [place] [address] Care Team Providers Care Wheel Worker Name Role Phone Kacie Caceres MD Primary Care Provide r Reason for Visit * Reason Onset Date Comments Nurse Triage 09/10/2023 Encounter Details Date Type Department Care Team ([facility] st Contact Info) Description 09/10/2023 Telephone [facility] MEDICINE [address] [place], [place] [phone] Kacie Caceres MD [address] [place], [place] [phone] Nurse Triage Social History Tobacco Use Types [...] Description 12/29/2024 9:15 AM EDT Office Visit [facility] [address] [place] [phone] Kacie Caceres MD [address] [place], [place] [phone] 01/01/2025 9:30 AM EDT Office Visit [facility] MED[facility]INE [address] [place] [address] Pam Pablo MD [address] [place] [address] documented as of this encounter Visit Diagnoses Not on filedocumented in this encounter Care Teams Wheel Worker Relationship Specialty Start Date End Date aKcie Caceres MD [address] [place] [address] PCP - General Family Medicine 01/27/21 Stacey Renae Alpaca Farmer 07/24/23 10/24/23 documented as of this encounter
--- OUTSIDE RECORDS SUMMARY | 2024-12-10 07:12 | XMS_ITS | Clinical Summary ---
Author Organization [facility] Address [address] [place] [address] Care Team Providers Care Continuous Loft Operator Name Role Phone Unavailable Primary Care Provider [...]
--- OUTSIDE RECORDS SUMMARY | 2024-12-10 07:12 | XMS_ITS | Encounter Summary ---
Author Organization [employer] Address [address] [facility] 7t [place] [address] Care Team Providers Care Marine Steward Name Role Phone Kacie Caceres MD Primary Care Provide r Reason for Visit * Reason Comments Care Coordination Outreach Encounter Details Date Type Department Care Team (Latest Contact Info) Description 11/25/2024 Patient Outreach [facility] MED & PEDS [address] [place] [address] Kacie Caceres MD [address] [place] [address] Care Coordination (Outreach) Social History Tobacco Use [...] encounter Progress Notes * Jacqueline Galarza - 11/25/2024 9:42 AM EST CHW Jacqueline Galarza placed outbound call to patient to follow up on SDOH needs. Patient's name, and address confirmed. Patient states is doing well. No further questions or concerns. CHW reinforced direct contact information or CM for any additional questions or concerns and extended clinic hours on Mondays and Wednesdays, and Walk-In Urgent Care Located in [facility]. Patient provided with after-hours line for [facility], , which offer night time triage service and option to transfer to sales representative publications provider if needed. Patient verbalizes understanding, and able to repeat back to chief writer. A follow up call will be placed within 10 days, patient agrees with plan. documented in this encounter Plan of Treatment Upcoming Encounters Date Type Department Care Team (Late st Contact Info) Description 12/29/2024 9:15 AM EDT Office Visit [facility] MEDICINE [address] [place] [address] [phone] Kacie Caceres MD [address] [place] [address] 01/01/2025 9:30 AM EDT Office Visit [facility] MEDICINE [address] [place] [address] [phone] Pam Pablo MD [address] [place], [place] [phone] documented as of this encounter Visit Diagnoses Not on filedocumented in this encounter Additional Health Concerns Assessment Noted Time PHQ-9 Depression Total Score: 18 024 8:12 AM EST documented as of this encounter Care Teams Marine Steward Relationship Specialty Start Date End Date Kacie Caceres MD [address] [place], [place] [phone] PCP - General Family Medicine 01/27/21 documented as of this encounter
== END 2024-12-10 07:10 | disposition home or self-care (01) ==
LOC: HO.US 07:09
PROVIDERS: PCP Internal Medicine; Visit Provider Internal Medicine
DX: R82.2 Biliuria (principal)
CPT/HCPCS: 76700

== ENCOUNTER → 2024-12-10 07:11 | Outpatient (BNV) | payer MEDICAID, SELFPAY | PROVIDERS: PCP Internal Medicine; Visit Provider Radiology Diagnostic Radiology | DX: R82.2 Biliuria (principal); R74.01 Elevation of levels of liver transaminase levels | CPT/HCPCS: 76700 ==